=== PATIENT | male | born 1955 | race Caucasian/White ===

== ENCOUNTER 2017-06-21 13:01 | Inpatient (IN) | payer OTHER ==
--- NOTE | 2017-06-21 13:10 | PDOC ---
History of Present Illness - General History Source: Patient Exam Limitations: No Limitations - History of Present Illness Initial Comments: 06/21/17 15:41 The patient is a 61 year old male, with a significant past medical history of HTN and cocaine use who presents to the emergency department with R sided weakness today. Patient reports R arm numbness and R leg weakness after waking up this morning at 11 AM. Patients last known well was approximately 9 PM last evening. As per EMS, patients neighbor noted minor speech changes. Patient also admits to cocaine use four days ago and presents to the ED for further evaluation. Patient denies chest pain, palpitations, SOB, headache or dizziness. Patient denies fever, chills, abdominal pain, nausea, vomit, diarrhea or constipation. Patient denies dysuria, frequency, urgency or hematuria. Patient denies sick contacts or recent travel. Allergies: NKA Past surgical history: None Social history: Daily smoker. Alcohol and cocaine use. PCP: None <Sona Acuna - Last Filed: 06/21/17 16:04> <Daisy Carr - Last Filed: 06/22/17 12:10> - General Stated Complaint: CVA/TIA Time Seen by Provider: 06/21/17 13:10 Past History <Sona Acuna - Last Filed: 06/21/17 16:04> - Past Medical History Diabetes: No - Suicide/Smoking/Psychosocial Hx Smoking History: Current every day smoker Hx Alcohol Use: Yes Drug/Substance Use Hx: Yes Substance Use Type: Cocaine Hx Substance Use Treatment: Yes <Daisy Carr - Last Filed: 06/22/17 12:10> - Past Medical History Allergies/Adverse Reactions: Allergies Allergy/AdvReac Type Severity Reaction Status Date / Time No Known Allergies Allergy Verified 06/21/17 13:05 Home Medications: Ambulatory Orders Unobtainable [Unobtainable] 06/21/17 Neuro Specific PMHX - Complaint Specific PMHX Glaucoma: No Herniated Disk: No Laminectomy: No Migraine: No Multiple Sclerosis: No Neuropathy: No TIA: No <Daisy Carr - Last Filed: 06/22/17 12:10> Review of Systems - Review of Systems Able to Perform ROS?: Yes Comments:: 06/21/17 15:41 GENERAL/CONSTITUTIONAL: No: fever, chills, weakness, loss of appetite. HEAD, EYES, EARS, NOSE AND THROAT: No: change in vision, ear pain, discharge, sore throat, throat swelling. CARDIOVASCULAR: No: chest pain, lightheadedness, palpitations, syncope RESPIRATORY: No: cough, shortness of breath, wheezing, hemoptysis, stridor. GASTROINTESTINAL: No: nausea, vomiting, abdominal cramping, diarrhea, rectal bleeding, constipation. GENITOURINARY: No: dysuria, hematuria, frequency, urgency, flank pain. MUSCULOSKELETAL: No: back pain, neck pain, joint pain, muscle swelling or pain SKIN: No: lesions, pallor, rash or easy bruising. NEUROLOGIC: + R arm numbness. +R leg weakness. No: headache, vertigo, paresthesias. ENDOCRINE: No: unexplained weight gain or loss HEMATOLOGIC/LYMPHATIC: No: anemia, easy bleeding, swelling nodes <Sona Acuna - Last Filed: 06/21/17 16:04> *Physical Exam - Vital Signs Last Vital Signs Temp Pulse Resp BP Pulse Ox 98.1 F 78 18 144/63 100 06/21/17 13:04 06/21/17 13:10 06/21/17 13:04 06/21/17 13:04 06/21/17 13:10 - Physical Exam Comments: 06/21/17 15:41 GENERAL: The patient is in no acute distress. HEAD: Normal with no signs of trauma. EYES: PERRLA, EOMI, sclera anicteric, conjunctiva clear. ENT: Ears normal, nares patent, oropharynx clear without exudates. Moist mucous membranes. NECK: Normal range of motion, supple without lymphadenopathy, JVD, or masses. LUNGS: Breath sounds equal, clear to auscultation bilaterally. No wheezes, and no crackles. HEART:Regular rate and rhythm, normal S1 and S2 without murmur, rub or gallop. ABDOMEN: Soft, nontender, normoactive bowel sounds. No guarding, no rebound. EXTREMITIES: Normal range of motion, no edema. No clubbing or cyanosis. No erythema, or tenderness. NEUROLOGICAL: See NIHSS. MUSCULOSKELETAL: Back nontender to palpation, no CVA tenderness SKIN: Warm, Dry, normal turgor, no rashes or lesions noted. <Sona Acuna - Last Filed: 06/21/17 16:04> ED Treatment Course - LABORATORY CBC & Chemistry Diagram: 06/21/17 12:24 06/21/17 12:24 - ADDITIONAL ORDERS Additional order review: Laboratory Results 06/21/17 06/21/17 06/21/17 12:24 12:24 12:24 PT with INR 11.10 INR 0.98 Sodium 139 Potassium 4.1 Chloride 108 H Carbon Dioxide 20 L D Anion Gap 11 BUN 16 Creatinine 0.8 Creat Clearance w eGFR > 60 Random Glucose 101 Calcium 8.7 Total Bilirubin 0.5 AST 23 ALT 19 D Alkaline Phosphatase 75 Creatine Kinase 187 Creatine Kinase Index 1.2 CK-MB (CK-2) 2.288 Troponin I < 0.02 Total Protein 7.2 Albumin 4.1 Triglycerides 173 H Cholesterol 215 H Total LDL Cholesterol 141 H D HDL Cholesterol 47 Blood Type O POSITIVE Antibody Screen Negative 06/21/17 12:24 RBC 4.76 MCV 97.2 H MCHC 34.6 RDW 12.5 MPV 9.1 Neutrophils % 66.5 Lymphocytes % 23.0 Monocytes % 5.7 Eosinophils % 4.2 Basophils % 0.6 <Sona Acuna - Last Filed: 06/21/17 16:04> - LABORATORY CBC & Chemistry Diagram: 06/22/17 06:15 06/22/17 06:15 <Daisy Carr - Last Filed: 06/22/17 12:10> Medical Decision Making - Medical Decision Making 06/21/17 15:42 Neurology provider relations rep paged via phone answering service. Awaiting call back. 06/21/17 16:05 Discussed patient's case with Dr. Dukes. <Sona Acuna - Last Filed: 06/21/17 16:04> - Critical Care Time Total Critical Care Time (minutes): 35 Critical Care Statement: The care of this patient involved high complexity decision making to prevent further life threatening deterioration of the patient 's condition and/or to evaluate & treat vital organ system(s) failure or risk of failure. - Medical Decision Making 06/21/17 13:44 Mr Morales is a 62 yo LHD M presenting to the ER with a complaint of right arm uncoordination/weakness, sensory deficit Pt predominantly demonstrates sensory deficits and drift of the right arm Pt states he went to sleep at some point last night (?9 or 10) He awoke this morning at approximately 11am He noticed weakness Went back to sleep, thinking that it would go away He awoke some time later and noted that his symptoms persisted and he decided to come to the ER EKG: Sinus rhythm, rate of 70 bpm, left axis deviation, no ST elevations or depressions, T waves are upright (flattened in aVL On examination: NIHSS 6 Differential diagnoses includes but is not limited to: TIA, CVA, generalized weakness, electrolyte abnormality, intracranial hemorrhage , intracranial mass, Will do: 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 Dukes Pt needs MRI, MRA Will give Aspirin Will admit to Stroke Unit Case reviewed with Hospitalist Clinical Impression: CVA, initial presentatio not a TPA candidate as pt has questionable onset some time overnight <Daisy Carr - Last Filed: 06/22/17 12:10> *DC/Admit/Observation/Transfer - Attestations Scribe Attestion: 06/21/17 15:41 Documentation prepared by Sona Acuna, acting as medical physicist for Daisy Carr MD <Soan Acuna - Last Filed: 06/21/17 16:04> - Discharge Dispostion Admit: Yes <Daisy Carr - Last Filed: 06/22/17 12:10> Diagnosis at time of Disposition: Cerebrovascular accident (CVA) Qualifiers: CVA mechanism: unspecified Qualified Code(s): I63.9 - Cerebral infarction, unspecified - Discharge Dispostion Condition at time of disposition: Stable NIH Stroke Scale - Last Known Well Date/Time & Onset Date Last Known Well: 06/20/17 Time Last Known Well: 21:00 - Initial Evaluation Level of consciousness: Alert Ask patient the month and their age: Answers both correctly Ask patient to open & close eyes; make fist and let go: Obeys both correctly Best gaze (horizontal eye movement): Normal Visual field testing: No visual field loss Facial paresis (Show teeth/raise eyebrows/close eyes tight): Minor paralysis ( flattened nasolabial fold, asymmetry on smiling) Motor Function: Left Arm: Normal Motor Function: Right Arm: Drift Motor Function: Left Leg: Normal (extends leg 30 degrees for 5 seconds without drift) Motor Function: Right Leg: Normal (extends leg 30 degrees for 5 seconds without drift) Limb Ataxia: Present in one limb Sensory(Use pinprick test arms,legs,trunk,face/side to side): Severe to total sensory loss Best language (Describe picture, name items, read sentences): Mild to moderate aphasia Dysarthria (read several words): Normal articulation Extinction and Inattention: No abnormality - Total Score NIH Stroke Scale Score: 6 <Daisy Carr - Last Filed: 06/22/17 12:10> tPA Exclusion checklist 3-4.5h - Time Elapsed Date last known well: 06/20/17 Time last known well: 21:00 Elaspsed time: 1 Day(s) and 14 Hour(s) and 55 Minutes - Thrombolytic Therapy Candidate Is patient eligible for thrombolytic therapy: No - Exclusion Criteria 3-4.5 hr SBP greater than 185 or DBP greater than 110mmHg despite tx: No Recent IC/spinal surgery,head trauma or stroke<3mos.: No Hx IC hemorrhage, IC neoplasm, AV malformation or aneurysm: No Active internal bleeding: No Blding diathesis(low plt ct, inc PTT,INR>1.7 or use of NOAC): No Symptoms suggest subarachnoid hemorrhage: No CT demonstrates multilobar infarct(>1/3 cerebral hemiphere): No Arterial puncture at noncompressible site in previous 7 days: No Blood glucose concentration less than 50mg/dL (2.7mmol/L): No - Relative Exclusion Criteria 3-4.5 hr Life expectancy <1 yr or severe co-morbid illness: No : No Patient/family refused: No Rapid improvement: No Stroke severity too mild: No Recent acute MT (w/in previous 3 months): No Seizure at onset with postictal residual neuro impairments: No Major surgery or serious trauma w/in previous 14 days: No Recent GI or hemorrhage (w/in previous 21 days): No - Add'l Relative Exclusion 3-4.5 hr Age > 80: No Hx of both diabetes AND prior ischemic stroke: No Taking an oral anticoagulant regardless of INR: No NIHSS >25: No - Ineligibility reason(s) Reasons No tPA given: Outside of window - delayed arrival <Daisy Carr - Last Filed: 06/22/17 12:10>
[2017-06-21 13:13] VITALS: BMI 21.7
[2017-06-21] MEDS ORDERED: SODIUM CHLORIDE 1,000 ML IV SCH (13:15)
[2017-06-21 14:10] LABS: BASO % 0.6 % (0-2.0); EOS % 4.2 % (0-4.5); HEMATOCRIT 46.3 % (35.4-49); MCH 33.7 pg (25.7-33.7); MCHC 34.6 g/dl (32.0-35.9); MEAN CELL VOLUME 97.2 fl (80-96); MEAN PLT VOLUME 9.1 fl (7.5-11.1); MONO % 5.7 % (3.8-10.2); NEUT % 66.5 % (42.8-82.8); PLATELET COUNT 198 K/MM3 (134-434); RBC 4.76 M/mm3 (4.00-5.60); RDW 12.5 % (11.9-15.9); WHITE BLOOD COUNT 10.9 K/mm3 (4.0-10.0)
[2017-06-21 14:25] LABS: INR 0.98 (0.82-1.09); PROTHROMBIN TIME (PATIENT) 11.1 SEC (9.98-11.88)
[2017-06-21 14:34] LABS: ALBUMIN 4.1 g/dl (3.4-5.0); ALK PHOS 75 U/L (45-117); ANION GAP 11 (8-16); BILIRUBIN,TOTAL 0.5 mg/dL (0.2-1.0); BLOOD UREA NITROGEN 16 mg/dL (7-18); CALCIUM 8.7 mg/dL (8.5-10.1); CHLORIDE 108 mmol/L (98-107); CHOLESTEROL 215 mg/dL (50-200); CO2 20 mmol/L (21-32); CREATININE 0.8 mg/dL (0.7-1.3); GLUCOSE,RANDOM 101 mg/dL (74-106); HDL CHOLESTEROL 47 mg/dL (40-60); LDL CHOLESTEROL (ONLY SJRH) 141 mg/dL (5-100); POTASSIUM 4.1 mmol/L (3.5-5.1); SGOT/AST 23 U/L (15-37); SGPT/ALT 19 U/L (12-78); SODIUM 139 mmol/L (136-145); TOT PROT 7.2 g/dl (6.4-8.2); TRIGLYCERIDES 173 mg/dL (35-160)
[2017-06-21] MEDS ORDERED: ASPIRIN 325 MG TABLET PO ONE (16:15)
--- NOTE | 2017-06-21 16:44 | HP ---
CHIEF COMPLAINT: Right-sided weakness PCP: None HISTORY OF PRESENT ILLNESS: 62 year-old male with a PMH significant for HTN and cocaine use (last use x 4 days ago). Patient awoke this morning at 11:am and had right arm and right leg weakness. He was last known well last night, 06/20 at 9:00pm. Denies headache, fever, sweats, chills, sick contacts. Denies chest pain, palpitations, SOB, TOMAS , or lower extremity edema. ER course was notable for: (1) ASA 325mg x 1 (2) ECG sinus rhythm @70bpm (3) CT head: no acute process; old MCA infarct Recent Travel: No PAST MEDICAL HISTORY: Hypertension Cocaine abuse PAST SURGICAL HISTORY: None reported Social History: Smoking: current every day for 50 years Alcohol: yes (last drink 1 week ago) Drugs: cocaine (last use 4-5 days ago) ("I'm on probation I can't admit to anything.") Family History: Allergies No Known Allergies Allergy (Verified 06/21/17 13:05) HOME MEDICATIONS: Home Medications Medication Instructions Recorded Unobtainable [Unobtainable] 06/21/17 REVIEW OF SYSTEMS CONSTITUTIONAL: Absent: fever, chills, diaphoresis, generalized weakness, malaise, loss of appetite, weight change HEENT: Absent: rhinorrhea, nasal congestion, throat pain, throat swelling, difficulty swallowing, mouth swelling, ear pain, eye pain, visual changes CARDIOVASCULAR: Absent: chest pain, syncope, palpitations, irregular heart rate, lightheadedness , peripheral edema RESPIRATORY: Absent: cough, shortness of breath, dyspnea with exertion, orthopnea, wheezing, stridor, hemoptysis GASTROINTESTINAL: Absent: abdominal pain, abdominal distension, nausea, vomiting, diarrhea, constipation, melena, hematochezia GENITOURINARY: Absent: dysuria, frequency, urgency, hesitancy, hematuria, flank pain, genital pain MUSCULOSKELETAL: Absent: myalgia, arthralgia, joint swelling, back pain, neck pain SKIN: Absent: rash, itching, pallor HEMATOLOGIC/IMMUNOLOGIC: Absent: easy bleeding, easy bruising, lymphadenopathy, frequent infections ENDOCRINE: Absent: unexplained weight gain, unexplained weight loss, heat intolerance, cold intolerance NEUROLOGIC: +right sided upper and lower extremity weakness Absent: headache, paresthesias, dizziness, unsteady gait, seizure, mental status changes, bladder or bowel incontinence PSYCHIATRIC: Absent: anxiety, depression, suicidal or homicidal ideation, hallucinations. PHYSICAL EXAMINATION Vital Signs - 24 hr 06/21/17 06/21/17 13:04 13:10 Temperature 98.1 F Pulse Rate 80 78 Respiratory 18 Rate Blood Pressure 144/63 O2 Sat by Pulse 100 100 Oximetry (%) GENERAL: Awake, alert, and fully oriented, in no acute distress. HEAD: Normal with no signs of trauma. EYES: Pupils equal, round and reactive to light, extraocular movements intact, sclera anicteric, conjunctiva clear. No lid lag. EARS, NOSE, THROAT: Ears normal, nares patent, oropharynx clear without exudates. Moist mucous membranes. NECK: Normal range of motion, supple without lymphadenopathy, JVD, or masses. LUNGS: Breath sounds equal, clear to auscultation bilaterally. No wheezes, and no crackles. No accessory muscle use. HEART: Regular rate and rhythm, normal S1 and S2 without murmur, rub or gallop. ABDOMEN: Soft, nontender, not distended, normoactive bowel sounds, no guarding, no rebound, no masses. MUSCULOSKELETAL: Normal range of motion at all joints. No bony deformities or tenderness. No CVA tenderness. UPPER EXTREMITIES: 2+ pulses, warm, well-perfused. No cyanosis. No clubbing. No peripheral edema. LOWER EXTREMITIES: 2+ pulses, warm, well-perfused. No calf tenderness. No peripheral edema. NEUROLOGICAL: sensory deficits and drift RUE; normal articulation; RUE drift Laboratory Results - last 24 hr 06/21/17 06/21/17 06/21/17 12:24 12:24 12:24 WBC 10.9 H RBC 4.76 Hgb 16.0 Hct 46.3 MCV 97.2 H MCH 33.7 MCHC 34.6 RDW 12.5 Plt Count 198 MPV 9.1 Neutrophils % 66.5 Lymphocytes % 23.0 Monocytes % 5.7 Eosinophils % 4.2 Basophils % 0.6 PT with INR 11.10 INR 0.98 Sodium 139 Potassium 4.1 Chloride 108 H Carbon Dioxide 20 L D Anion Gap 11 BUN 16 Creatinine 0.8 Creat Clearance w eGFR > 60 Random Glucose 101 Calcium 8.7 Total Bilirubin 0.5 AST 23 ALT 19 D Alkaline Phosphatase 75 Creatine Kinase 187 Creatine Kinase Index 1.2 CK-MB (CK-2) 2.288 Troponin I < 0.02 Total Protein 7.2 Albumin 4.1 Triglycerides 173 H Cholesterol 215 H Total LDL Cholesterol 141 H D HDL Cholesterol 47 Blood Type Antibody Screen 06/21/17 12:24 WBC RBC Hgb Hct MCV MCH MCHC RDW Plt Count MPV Neutrophils % Lymphocytes % Monocytes % Eosinophils % Basophils % PT with INR INR Sodium Potassium Chloride Carbon Dioxide Anion Gap BUN Creatinine Creat Clearance w eGFR Random Glucose Calcium Total Bilirubin AST ALT Alkaline Phosphatase Creatine Kinase Creatine Kinase Index CK-MB (CK-2) Troponin I Total Protein Albumin Triglycerides Cholesterol Total LDL Cholesterol HDL Cholesterol Blood Type O POSITIVE Antibody Screen Negative ASSESSMENT/PLAN 62 year-old male with a PMH significant for HTN and active cocaine use. Presents with right-sided weakness. Right-sided weakness r/o TIA v. CVA --06/21 CT head: no acute process; left MCA territory infarct involving the insular cortex extending into the left temporoparietal region of indeterminant chronicity --MRI/MRA brain, MRA neck pending --continue ASA daily, start Lipitor --ECG sinus rhythm --echo ordered --US carotids ordered --troponin neg x 1; two pending Hypertension --BP stable --on no anti-hypertensives Cocaine use --last reported use 4 days ago --U tox positive for cocaine --avoid beta blockers Tobacco cessation --Nicoderm patch FEN Fluids: PO intake adequate Electrolytes: replete as indicated Nutrition: low sodium DVT prophylaxis: lovenox Physical therapy evaluation Dispo: continues to require inpatient care. Full code. Visit type - Emergency Visit Emergency Visit: Yes ED Registration Date: 06/21/17 Care time: The patient presented to the Emergency Department on the above date and was hospitalized for further evaluation of their emergent condition. - New Patient This patient is new to me today: Yes Date on this admission: 06/21/17 - Critical Care Critical Care patient: No Hospitalist Screening - Colonoscopy Questionnaire Colonoscopy Questionnaire: Colonoscopy Questionnaire - Patient: 50 - 75 years old and never had a screening colonoscopy: Yes History of colon or rectal polyps, or CA: Unknown History of IBD, Crohn's disease or UC: Unknown History of abdominal radiation therapy as a child: Unknown - Relative: 1 with colon or rectal CA, or polyps at age 60 or younger: Unknown Colon or rectal CA diagnosed at age 45 or younger: Unknown Multiple relatives with colon or rectal CA: Unknown - Outcome: Screening Result: Positive Screen
[2017-06-21] MEDS ORDERED: ATORVASTATIN CA 40 MG TABLET (FP) PO ONE (16:56)
[2017-06-21 17:44] LABS: URINE APPEARANCE CLEAR; URINE BILIRUBIN NEGATIVE (NEGATIVE); URINE BLOOD NEGATIVE (NEGATIVE); URINE COLOR YELLOW; URINE GLUCOSE (UA) NEGATIVE (NEGATIVE); URINE KETONE NEGATIVE (NEGATIVE); URINE LEUK ESTERASE NEGATIVE (NEGATIVE); URINE NITRITE NEGATIVE (NEGATIVE); URINE PROTEIN NEGATIVE (NEGATIVE); URINE UROBILINOGEN NEGATIVE mg/dL (0.2-1.0)
[2017-06-21] MEDS ORDERED: ASPIRIN 325 MG ENTERIC COATED TABLET (FP) ONE (17:47)
[2017-06-21] MEDS ORDERED: ATORVASTATIN CA 40 MG TABLET (FP) ONE (17:47)
[2017-06-21 17:57] LABS: METHADONE, UR NEGATIVE ng/ml (CUTOFF=300); OPIATES, URI NEGATIVE ng/ml (CUTOFF=300); PHENCYCLIDINE,URINE NEGATIVE ng/ml (CUTOFF=25); URINE AMPHETAMINES NEGATIVE ng/ml (CUTOFF=500); URINE BARBITURATES NEGATIVE ng/ml (CUTOFF=200); URINE BENZODIAZEPINES NEGATIVE ng/ml (CUTOFF=200)
[2017-06-21 17:58] LABS: COCAINE, UR POSITIVE ng/ml (CUTOFF=300)
[2017-06-21] MEDS ORDERED: ATORVASTATIN CA 40 MG TABLET (FP) PO SCH (22:00)
[2017-06-21] MEDS: NICOTINE 21 MG/24 HOURS TOPICAL PATCH TD SCH (22:31)
--- NOTE | 2017-06-22 00:23 | HOSP ---
Subjective - Review of Symptoms Events since last encounter: Received TC from radiologist, Dr. Pimentel who reports pt with severe stenosis L carotid artery with multiple L occipital, frontal, thalamic infacts. MRA brain revealed poor perfusion of L hemisphere. Subjective: pt reports that he is still having difficulty moving R side of body; it won't obey his commands. Physical Examination Vital Signs: Vital Signs Temperature 98.0 F 06/21/17 17:10 Pulse Rate 73 06/21/17 17:10 Respiratory Rate 16 06/21/17 17:10 Blood Pressure 125/84 06/21/17 17:10 O2 Sat by Pulse Oximetry (%) 97 06/21/17 23:03 Constitutional: Yes: No Distress, Calm Cardiovascular: Yes: Regular Rate and Rhythm, S1, S2 Respiratory: Yes: CTA Bilaterally Gastrointestinal: Yes: Normal Bowel Sounds. No: Tenderness Neurological: Yes: Alert, Oriented (x4), Facial Droop (mild right), Other ( speech clear) ...Motor Strength: LUE (5/5), LLE (5/5), RUE (3/5), RLE (3/5) Labs: CBC, BMP 06/21/17 12:24 06/21/17 12:24 Hospitalist Encounter Assessment: acute infarct L hemisphere with severe stenosis L carotid artery and very poor perfusion of left hemisphere - DW neurology Dr. Dukes, recommends ASA and vascular surgery consult. Dr. Geller paged x 2 - Dr. Dukes also recommends CTA neck and brain however, pt just had MRA and is refusing to go for further testing at this time. Will order in AM - cont on Pict q4h Addendum: 150am Received TC back from Dr. Geller. Made aware of MRI findings including severe stenosis carotid artery and Left hemisphere hypoperfusion. Also recommends CTA neck. No other new orders.
[2017-06-22 06:48] LABS: BASO % 0.7 % (0-2.0); EOS % 3.7 % (0-4.5); HEMATOCRIT 43.6 % (35.4-49); HEMOGLOBIN 14.9 GM/dL (11.7-16.9); LYMPH % 23.4 % (8-40); MCH 33.5 pg (25.7-33.7); MCHC 34.3 g/dl (32.0-35.9); MEAN CELL VOLUME 97.8 fl (80-96); MEAN PLT VOLUME 9.2 fl (7.5-11.1); NEUT % 66.2 % (42.8-82.8); PLATELET COUNT 204 K/MM3 (134-434); RBC 4.46 M/mm3 (4.00-5.60); RDW 12.6 % (11.9-15.9); WHITE BLOOD COUNT 10.1 K/mm3 (4.0-10.0)
[2017-06-22 07:13] LABS: CHLORIDE 106 mmol/L (98-107); SODIUM 141 mmol/L (136-145)
[2017-06-22 07:32] LABS: ALBUMIN 3.7 g/dl (3.4-5.0); ALK PHOS 68 U/L (45-117); ANION GAP 14 (8-16); BILIRUBIN,TOTAL 0.8 mg/dL (0.2-1.0); BLOOD UREA NITROGEN 15 mg/dL (7-18); CALCIUM 9.1 mg/dL (8.5-10.1); CO2 21 mmol/L (21-32); CREATININE 0.8 mg/dL (0.7-1.3); GLUCOSE,RANDOM 91 mg/dL (74-106); SGOT/AST 23 U/L (15-37); SGPT/ALT 18 U/L (12-78); TOT PROT 6.7 g/dl (6.4-8.2)
[2017-06-22 07:38] LABS: MAGNESIUM 2.2 mg/dL (1.8-2.4)
--- NOTE | 2017-06-22 09:05 | CON.NEURO ---
Consult - History of Present Illness History of Present Illness: 62 year-old male with a PMH significant for HTN and cocaine use (last use x 4 days ago). Patient awoke 06/21/16 at 11:am and had right arm and right leg weakness. He was last known well last night, 06/20 at 9:00pm. Denies headache, fever, sweats, chills, sick contacts. Denies chest pain, palpitations, SOB, TOMAS , or lower extremity edema. CT head: no acute process; old MCA infarct. NIH 6 MRI IMPRESSION: Acute nonhemorrhagic cerebral infarcts are identified within the distribution of the left middle and posterior cerebral arteries as discussed above.. There is a possible small late subacute left basal ganglia infarct. Prominently diminished flow is noted within the intracranial left internal carotid artery presumably secondary to marked extracranial carotid artery stenosis. Please refer to the neck MRA in this regard. MRA Impression: A severe stenosis is seen of the left internal carotid artery origin with resultant distal adaptive luminal narrowing. An approximately 50% proximal right internal carotid artery stenosis is noted. Accurate quantification is somewhat difficult on this exam due to motion artifact. Correlate with Doppler sonography or CT angiography. The remainder of the study is as discussed above. Doppler : IMPRESSION: Moderate atherosclerotic disease, left greater than right, with stenoses in the 60-79% range bilaterally. Clinical correlation and follow-up studies recommended. Please see above discussion - History Source History Provided By: Patient, Medical Record - Alcohol/Substance Use Hx Alcohol Use: Yes - Smoking History Smoking history: Current every day smoker Aproximately how many cigarettes per day: 20 Home Medications - Allergies Allergies/Adverse Reactions: Allergies Allergy/AdvReac Type Severity Reaction Status Date / Time No Known Allergies Allergy Verified 06/21/17 13:05 - Home Medications Home Medications: Ambulatory Orders Unobtainable [Unobtainable] 06/21/17 Physical Exam-Neuro Vital Signs: Vital Signs Temperature 98.0 F 06/22/17 05:41 Pulse Rate 77 06/22/17 05:41 Respiratory Rate 18 06/22/17 05:41 Blood Pressure 103/62 06/22/17 05:41 O2 Sat by Pulse Oximetry (%) 97 06/22/17 00:31 Constitutional: Yes: Poor Hygeine Labs: CBC, BMP 06/22/17 06:15 06/22/17 06:15 INR, PTT INR 0.98 (0.82-1.09) 06/21/17 12:24 - Neuro Exam Level Of Consciousness: Yes: Alert (Awake, Alert, dense r field cut, R hemiparesis 4/5 with drift, ) NIH Stroke Scale - Last Known Well Date/Time & Onset Date Last Known Well: 06/21/17 Time Last Known Well: 11:00 - Initial Evaluation Level of consciousness: Alert Ask patient the month and their age: Answers both correctly Ask patient to open & close eyes; make fist and let go: Obeys both correctly Best gaze (horizontal eye movement): Normal Visual field testing: Complete hemianopia Facial paresis (Show teeth/raise eyebrows/close eyes tight): Minor paralysis ( flattened nasolabial fold, asymmetry on smiling) Motor Function: Left Arm: Normal Motor Function: Right Arm: Drift Motor Function: Left Leg: Normal (extends leg 30 degrees for 5 seconds without drift) Motor Function: Right Leg: Drift Limb Ataxia: Present in one limb Sensory(Use pinprick test arms,legs,trunk,face/side to side): Normal Best language (Describe picture, name items, read sentences): No Aphasia Dysarthria (read several words): Normal articulation Extinction and Inattention: No abnormality - Total Score NIH Stroke Scale Score: 6 Imaging - Results Cat Scan: Report Reviewed, Image Reviewed Ultrasound: Report Reviewed Problem List - Problems (1) Carotid stenosis, symptomatic, with infarction Code(s): I63.239 - CEREB INFRC DUE TO UNSP OCCLS OR STENOS OF UNSP CAROTID ART (2) Cerebrovascular accident (CVA) Code(s): I63.9 - CEREBRAL INFARCTION, UNSPECIFIED Qualifiers: CVA mechanism: unspecified Qualified Code(s): I63.9 - Cerebral infarction, unspecified Assessment/Plan 62 year-old male with a PMH significant for HTN and cocaine use (last use x 4 days ago). Patient awoke 06/21/16 at 11:am and had right arm and right leg weakness. He was last known well last night, 06/20 at 9:00pm. NIH, R field cut, slight right hemiparesis. no TPA was out of window + L MCA territory stroke, highly suspicious for artery to artery embolism, symptomatic L carotid stenosis. does not take ASA although compliance an issue , +cocaine, +smoking would rec Left sided CEA , thereafter ASA, statin spoke to vascular , follow clinic and will plan for elective CEA 4-6 weeks card [facility] Dr Dukes
[2017-06-22] MEDS: NICOTINE 21 MG/24 HOURS TOPICAL PATCH TD SCH (09:56)
[2017-06-22] MEDS: ASPIRIN 81 MG CHEWABLE TABLETS PO SCH (09:56)
[2017-06-22] MEDS: ENOXAPARIN NA (PORCINE) 40 MG/0.4 ML DISP.SYRIN SQ SCH (09:56)
--- NOTE | 2017-06-22 12:34 | EKG ---
Test Reason : Blood Pressure : / mmHG Vent. Rate : 071 BPM Atrial Rate : 071 BPM P-R Int : 138 ms QRS Dur : 082 ms QT Int : 396 ms P-R-T Axes : 076 -39 065 degrees QTc Int : 430 ms NORMAL SINUS RHYTHM POSSIBLE LEFT ATRIAL ENLARGEMENT LEFT AXIS DEVIATION ABNORMAL ECG WHEN COMPARED WITH ECG OF 21-JUN-2017 13:16, NO SIGNIFICANT CHANGE WAS FOUND Confirmed by RITESH QUINONEZ, ROMEO ([id number]) on 06/22/2017 12:34:13 PM Referred By: Confirmed By:ROMEO AWAD MD
--- NOTE | 2017-06-22 14:20 | CONSULT ---
Consult - Alcohol/Substance Use Hx Alcohol Use: Yes - Smoking History Smoking history: Current every day smoker Aproximately how many cigarettes per day: 20 Home Medications - Allergies Allergies/Adverse Reactions: Allergies Allergy/AdvReac Type Severity Reaction Status Date / Time No Known Allergies Allergy Verified 06/21/17 13:05 - Home Medications Home Medications: Ambulatory Orders Unobtainable [Unobtainable] 06/21/17 Physical Exam Vital Signs: Vital Signs Temperature 97.6 F 06/22/17 13:00 Pulse Rate 78 06/22/17 13:00 Respiratory Rate 20 06/22/17 13:00 Blood Pressure 120/62 06/22/17 13:00 O2 Sat by Pulse Oximetry (%) 99 06/22/17 09:00 Labs: CBC, BMP 06/22/17 06:15 06/22/17 06:15 Assessment/Plan VAscular Surgery 62 year-old male with a PMH significant for HTN and cocaine use (last use x 4 days ago). Patient awoke this morning at 11:am and had right arm and right leg weakness. He was last known well last night, 06/20 at 9:00pm. Denies headache, fever, sweats, chills, sick contacts. Denies chest pain, palpitations, SOB, TOMAS , or lower extremity edema. ER course was notable for: (1) ASA 325mg x 1 (2) ECG sinus rhythm @70bpm (3) CT head: no acute process; old MCA infarct Recent Travel: No PAST MEDICAL HISTORY: Hypertension Cocaine abuse PAST SURGICAL HISTORY: None reported Social History: Smoking: current every day for 50 years Alcohol: yes (last drink 1 week ago) Drugs: cocaine (last use 4-5 days ago) ("I'm on probation I can't admit to anything.") Family History: Allergies No Known Allergies Allergy (Verified 06/21/17 13:05) MRA -- shows acute infarct in the middle and posterior cerebral artery distribution. PE Head - NC/AT Lung - CTA heart - RRR abd - soft,nt,nd ext - warm, pink. FROM x4 . Good muscle strength. A/P CTA shows left ICA stenosis at the origin. CTA not officially read as of yet. Will need CEA at some point. Awaiting neurology input. Will follow. Joe Geller DO
--- NOTE | 2017-06-22 16:42 | EKG ---
Test Reason : Blood Pressure : / mmHG Vent. Rate : 078 BPM Atrial Rate : 078 BPM P-R Int : 132 ms QRS Dur : 078 ms QT Int : 382 ms P-R-T Axes : 069 -32 054 degrees QTc Int : 435 ms POOR DATA QUALITY, INTERPRETATION MAY BE ADVERSELY AFFECTED NORMAL SINUS RHYTHM POSSIBLE LEFT ATRIAL ENLARGEMENT LEFT AXIS DEVIATION ABNORMAL ECG WHEN COMPARED WITH ECG OF 06-DEC-2016 07:41, NO SIGNIFICANT CHANGE WAS FOUND Confirmed by ROMEO AWAD MD ([id number]) on 06/22/2017 4:42:20 PM Referred By: Confirmed By:ROMEO AWAD MD
--- NOTE | 2017-06-22 19:36 | PN ---
Physical Exam: SUBJECTIVE: Patient seen and examined at the bedside. Reports right eye with diminished peripheral vision. OBJECTIVE: Cardiology consulted Vital Signs Period Temp Pulse Resp BP Sys/White Pulse Ox Last 24 Hr 97.6 F-98.3 F 76-80 18-20 103-135/57-82 97-99 GENERAL: The patient is awake, alert, and fully oriented, in no acute distress. HEAD: Normal with no signs of trauma. EYES: Right eye with visual defect ENT: Ears normal, nares patent, oropharynx clear without exudates, moist mucous membranes. NECK: Trachea midline, full range of motion, supple. LUNGS: Breath sounds equal, clear to auscultation bilaterally HEART:NSR ABDOMEN: Soft, nontender, nondistended, normoactive bowel sounds, no guarding, no rebound, no hepatosplenomegaly, no masses. EXTREMITIES: 2+ pulses, warm, well-perfused, no edema. NEUROLOGICAL:. Normal speech, gait not observed. PSYCH: Normal mood, normal affect. SKIN: Warm, dry, normal turgor, no rashes or lesions noted Laboratory Results - last 24 hr 06/21/17 06/22/17 06/22/17 21:00 01:55 06:15 WBC 10.1 H RBC 4.46 Hgb 14.9 Hct 43.6 MCV 97.8 H MCH 33.5 MCHC 34.3 RDW 12.6 Plt Count 204 MPV 9.2 Neutrophils % 66.2 Lymphocytes % 23.4 Monocytes % 6.0 Eosinophils % 3.7 Basophils % 0.7 Sodium Potassium Chloride Carbon Dioxide Anion Gap BUN Creatinine Creat Clearance w eGFR Random Glucose Calcium Phosphorus Magnesium Total Bilirubin AST ALT Alkaline Phosphatase Creatine Kinase 173 152 Creatine Kinase Index 1.3 1.6 CK-MB (CK-2) 2.333 2.485 Troponin I < 0.02 < 0.02 Total Protein Albumin 06/22/17 06/22/17 06:15 06:15 WBC RBC Hgb Hct MCV MCH MCHC RDW Plt Count MPV Neutrophils % Lymphocytes % Monocytes % Eosinophils % Basophils % Sodium 141 Potassium 4.0 Chloride 106 Carbon Dioxide 21 Anion Gap 14 BUN 15 Creatinine 0.8 Creat Clearance w eGFR > 60 Random Glucose 91 Calcium 9.1 Phosphorus 3.0 Cancelled Magnesium 2.2 Cancelled Total Bilirubin 0.8 D AST 23 ALT 18 Alkaline Phosphatase 68 Creatine Kinase Creatine Kinase Index CK-MB (CK-2) Troponin I Total Protein 6.7 Albumin 3.7 Active Medications Generic Name Dose Route Start Last Admin Trade Name Kvng PRN Reason Stop Dose Admin Aspirin 81 mg 06/22/17 10:00 06/22/17 09:56 Asa - PO 81 mg DAILY MICHAEL Administration Atorvastatin Calcium 40 mg 06/22/17 22:00 Lipitor - PO HS MICHAEL Enoxaparin Sodium 40 mg 06/22/17 10:00 06/22/17 09:56 Lovenox - SQ 40 mg DAILY MICHAEL Administration Nicotine 21 mg 06/21/17 19:00 06/22/17 09:56 Nicoderm Patch - TD 21 mg DAILY MICHAEL Administration ASSESSMENT/PLAN: Patient is a 62 year old male with a past medical history of hypertension and chronic cocaine use. He presents to the ED with right sided weakness. Imaging: -Moderate atherosclerotic dx, left greater than right, with stenosis in the 60- 70% range -Acute non hemorrhagic cerebral infarcts are identified within the distribution of the left mid and posterior cerebral arteris. Possible small lae subacute left basal gangila infarct Neck CTA: apx 70-75% stenosis inthe origin of the left internal carotid artery secondary to non calcified and calcified plaque. Apx 50% of stenosis at the origin of the right internal carotid artery seconday to calcified and non calc. plaque Neuro: Left MCA Territory acute stroke Imaging as noted above ASA 81mg Stain therapy Swallow evaluation Physical therapy Cardiology evaluation Rehab daily Vascular and Neuro following Hypertension, stable monitor on tele Cardiology consult Psyche: Cocaine use, chronic No w/drawal symptoms on exam Tobacco cessation, chronic On Nicotine FEN PO intake Monitor electrolytes Low sodium diet On Lovenox daily PT following Disposition: full code
[2017-06-22] MEDS: ATORVASTATIN CA 40 MG TABLET (FP) PO SCH (21:42)
[2017-06-23] MEDS ORDERED: MELATONIN 5 MG TABLETS PO ONE (00:32)
[2017-06-23] MEDS ORDERED: MELATONIN 5 MG TABLETS PO PRN (00:32)
[2017-06-23 07:33] LABS: BASO % 0.7 % (0-2.0); EOS % 4.4 % (0-4.5); HEMATOCRIT 42.4 % (35.4-49); HEMOGLOBIN 14.8 GM/dL (11.7-16.9); LYMPH % 28.1 % (8-40); MCH 33.8 pg (25.7-33.7); MCHC 34.8 g/dl (32.0-35.9); MEAN CELL VOLUME 97.2 fl (80-96); MEAN PLT VOLUME 9.2 fl (7.5-11.1); NEUT % 60.8 % (42.8-82.8); PLATELET COUNT 204 K/MM3 (134-434); RBC 4.36 M/mm3 (4.00-5.60); RDW 12.7 % (11.9-15.9); WHITE BLOOD COUNT 9.8 K/mm3 (4.0-10.0)
[2017-06-23 08:22] LABS: ALBUMIN 3.8 g/dl (3.4-5.0); ALK PHOS 67 U/L (45-117); ANION GAP 8 (8-16); BILIRUBIN,TOTAL 0.6 mg/dL (0.2-1.0); BLOOD UREA NITROGEN 19 mg/dL (7-18); CALCIUM 8.9 mg/dL (8.5-10.1); CHLORIDE 107 mmol/L (98-107); CO2 25 mmol/L (21-32); GLUCOSE,RANDOM 85 mg/dL (74-106); POTASSIUM 3.8 mmol/L (3.5-5.1); SGOT/AST 19 U/L (15-37); SGPT/ALT 15 U/L (12-78); SODIUM 140 mmol/L (136-145); TOT PROT 6.5 g/dl (6.4-8.2)
[2017-06-23] MEDS: ASPIRIN 81 MG CHEWABLE TABLETS PO SCH (09:17)
[2017-06-23] MEDS: ENOXAPARIN NA (PORCINE) 40 MG/0.4 ML DISP.SYRIN SQ SCH (09:17)
[2017-06-23] MEDS: NICOTINE 21 MG/24 HOURS TOPICAL PATCH TD SCH (09:17)
--- NOTE | 2017-06-23 09:30 | PN ---
Physical Exam: SUBJECTIVE: Patient seen and examined OBJECTIVE: Vital Signs Period Temp Pulse Resp BP Sys/White Pulse Ox Last 24 Hr 97.6 F-98.8 F 74-83 18-20 105-121/57-76 99 GENERAL: The patient is awake, alert, and fully oriented, in no acute distress. HEAD: Normal with no signs of trauma. EYES: Right eye with visual defect ENT: Ears normal, nares patent, oropharynx clear without exudates, moist mucous membranes. NECK: Trachea midline, full range of motion, supple. LUNGS: Breath sounds equal, clear to auscultation bilaterally HEART:NSR ABDOMEN: Soft, nontender, nondistended, normoactive bowel sounds, no guarding, no rebound, no hepatosplenomegaly, no masses. EXTREMITIES: 2+ pulses, warm, well-perfused, no edema. NEUROLOGICAL:. Normal speech, gait not observed. PSYCH: Normal mood, normal affect. SKIN: Warm, dry, normal turgor, no rashes or lesions noted Laboratory Results - last 24 hr 06/23/17 06/23/17 07:05 07:05 WBC 9.8 RBC 4.36 Hgb 14.8 Hct 42.4 MCV 97.2 H MCH 33.8 H MCHC 34.8 RDW 12.7 Plt Count 204 MPV 9.2 Neutrophils % 60.8 Lymphocytes % 28.1 D Monocytes % 6.0 Eosinophils % 4.4 Basophils % 0.7 Sodium 140 Potassium 3.8 Chloride 107 Carbon Dioxide 25 Anion Gap 8 BUN 19 H D Creatinine 1.0 D Creat Clearance w eGFR > 60 Random Glucose 85 Calcium 8.9 Total Bilirubin 0.6 D AST 19 ALT 15 Alkaline Phosphatase 67 Total Protein 6.5 Albumin 3.8 Active Medications Generic Name Dose Route Start Last Admin Trade Name Freq PRN Reason Stop Dose Admin Aspirin 81 mg 06/22/17 10:00 06/23/17 09:17 Asa - PO 81 mg DAILY MICHAEL Administration Atorvastatin Calcium 40 mg 06/22/17 22:00 06/22/17 21:42 Lipitor - PO 40 mg HS MICHAEL Administration Enoxaparin Sodium 40 mg 06/22/17 10:00 06/23/17 09:17 Lovenox - SQ 40 mg DAILY MICHAEL Administration Melatonin 5 mg 06/23/17 00:32 Melatonin PO HS PRN INSOMNIA Nicotine 21 mg 06/21/17 19:00 06/23/17 09:17 Nicoderm Patch - TD 21 mg DAILY MICHAEL Administration ASSESSMENT/PLAN: Patient is a 62 year old male with a past medical history of hypertension and chronic cocaine use. He presents to the ED with right sided weakness. Imaging: -Moderate atherosclerotic dx, left greater than right, with stenosis in the 60- 70% range -Acute non hemorrhagic cerebral infarcts are identified within the distribution of the left mid and posterior cerebral arteris. Possible small lae subacute left basal gangila infarct Neck CTA: apx 70-75% stenosis in the origin of the left internal carotid artery secondary to non calcified and calcified plaque. Apx 50% of stenosis at the origin of the right internal carotid artery secondary to calcified and non calc. plaque Neuro Left MCA territory acute stroke Left MCA Territory acute stroke Imaging as noted above ASA 81mg Stain therapy Swallow evaluation Physical therapy Cardiology evaluation Rehab daily Vascular and Neuro following Hypertension, stable monitor on tele Cardiology consult Psyche: Cocaine use, chronic No w/drawal symptoms on exam Tobacco cessation, chronic On Nicotine FEN PO intake Monitor electrolytes Low sodium diet On Lovenox daily PT following Disposition: full code
--- NOTE | 2017-06-23 10:52 | CONSULT ---
Admitting History and Physical - Primary Care Physician PCP: Sirisha Cuellar - Admission History of Present Illness: 62 year-old male with a PMH significant for HTN and cocaine use, last use x 4 days ago, admitted with right arm and right leg weakness. Severe stenosis L carotid artery with multiple L occipital, frontal, thalamic infacts. MRA brain revealed poor perfusion of L hemisphere. Right hemiparesis Selected Entries 06/22/17 06/22/17 06/22/17 00:30 02:07 05:41 Breakfast Lunch Supper Temperature 98.1 F 98.3 F 98.0 F 06/22/17 06/22/17 06/22/17 09:00 11:17 13:00 Breakfast 100% Lunch Supper Temperature 97.8 F 97.6 F 06/22/17 06/22/17 06/22/17 14:59 17:00 19:44 Breakfast Lunch 75% Supper 100% Temperature 97.7 F 98.8 F 06/22/17 06/23/17 06/23/17 20:50 05:00 08:08 Breakfast Lunch Supper Temperature 97.6 F 97.8 F 98 F On reg diet, thin liquid. History Source: Patient, Medical Record Limitations to Obtaining History: Clinical Condition - Smoking History Smoking history: Current every day smoker Aproximately how many cigarettes per day: 20 - Alcohol/Substance Use Hx Alcohol Use: Yes History - Admission Reason For Visit: CVA - Diagnostics CT Scan: Report Reviewed MRI: Report Reviewed (severe stenosis L carotid artery with multiple L occipital , frontal, thalamic infacts. MRA brain revealed poor perfusion of L hemisphere.) - General Mental Status: Alert and Oriented, Awake and Alert, Able to Follow Commands Attention: Intact Ability to Follow Directions: Good (Occasional errors with complex, lengthy commands) - Hearing Hearing: Functional Speech Evaluation - Communication Primary Language: DIVEHI Communication: Yes: Within Normal Limits Oral Expression Ability: Yes: Mild Impairment (occassional word finding difficulty/errors) - Speech Production Able to Make Needs Known: Yes: WNL Intelligibility: Yes: WNL - Speech Characteristics Voice Loudness: Normal Voice Pitch: Yes: Normal Voice Phonatory-based Quality: Yes: Normal Speech Pattern: Normal Speech Clarity: < 100% Nasal Resonance: Normal Articulation: Yes: Precise Rate of Speech: Intact - Language/Auditory Comprehension Follows: Yes: 2 Stage Simple Commands Observation: Able to respond to yes/no queries: Yes, Yes/No Confusion: No, Comprehends Conversational Speech: Yes, Benefits from Repetiton: Yes - Language/Verbal Expression Aphasia: Yes: Anomia (occasional) Able to Respond to Simple Queries: Yes: Mildly Impaired Able to Communicate Wants and Needs: Yes: WNL Aware of Errors: Yes Attempts to Correct Errors: Yes - Memory/Perception Hemaniopsia: Yes: Right - Swallow Evaluation/Bedside Assessment Current Nutritional Intake: Regular, Thin Liquids Oral Secretions: Yes: WFL Dentition: Yes: Missing Teeth (has 3 teeth) Facial Symmetry at Rest: Symmetrical Facial Symmetry on Retraction: Symmetrical Against Resistance Opening: Normal Against Resistance Closing: Normal Pucker Lips: Normal Smile: Normal Lingual Movement: Normal, Symmetric Lingual Speed of Movement: Normal Lingual Movement Strgth Against Opposition: Normal Lingual Movement Characteristics: Normal Velopharyngeal Movement: Normal Laryngeal Elevation: WFL Laryngeal Movement: Able to Palpate Rate of Intake: WFL Bolus Size: WFL Labial Seal: WFL Chewing: WFL (adequate with poor dentition.) Oral Prep Time: WFL A-P Transit: WFL Timing of Swallow: WFL Coughing/Throat Clear: No Change in Voice: No Recommendations - Speech Evaluation, Impression/Plan Impression: Right hemiparesis/hemianopsia. O x 3. Verbal with mild anomia/ occasional errors. Swallowing intact - Disposition Discharge to: [facility] Center - Dysphagia Impressions/Plan Swallowing Skills: WFL Dysphagia Impressions: No Impairment *Silent aspiration: cannot be R/O at bedside - Recommendations Diet Consistency: Regular (soft may be easier) Medication Administration: Whole with water Liquids: Thin Liquids
--- NOTE | 2017-06-23 11:23 | CON.CARD ---
Cardiology Consult (text) - Consultation Consultation Note: cc: right side weakness hpi: 62 m hx htn, active cocaine use here with right sided weakness. Found to have new cva and carotid stenosis. No cp, sob, palps, dizzy, loc, pnd, orthopnea, le edema. No hx hrt dx. Still with right side weakness. pmh: per hpi psh: no surgery social: +tob, +cocaine fam: no premature cad, scd ros: per hpi; no nvd, fever, cough, nasal congestion, gib, hematuria, dysuria meds: Home Medications Medication Instructions Recorded Unobtainable [Unobtainable] 06/21/17 pe: Vital Signs Period Temp Pulse Resp BP Sys/White Pulse Ox Last 24 Hr 97.6 F-98.8 F 74-83 18-20 105-121/57-76 99-100 nad no jvd rrr s1s2 no mrg cta bl nl eff aaox3 no le e/c/c abd nt nd pos bs no jaundice diaphoresis pos dp pt Laboratory Last Values WBC 9.8 K/mm3 (4.0-10.0) 06/23/17 07:05 RBC 4.36 M/mm3 (4.00-5.60) 06/23/17 07:05 Hgb 14.8 GM/dL (11.7-16.9) 06/23/17 07:05 Hct 42.4 % (35.4-49) 06/23/17 07:05 MCV 97.2 fl (80-96) H 06/23/17 07:05 MCH 33.8 pg (25.7-33.7) H 06/23/17 07:05 MCHC 34.8 g/dl (32.0-35.9) 06/23/17 07:05 RDW 12.7 % (11.9-15.9) 06/23/17 07:05 Plt Count 204 K/MM3 (134-434) 06/23/17 07:05 MPV 9.2 fl (7.5-11.1) 06/23/17 07:05 Neutrophils % 60.8 % (42.8-82.8) 06/23/17 07:05 Lymphocytes % 28.1 % (8-40) D 06/23/17 07:05 Monocytes % 6.0 % (3.8-10.2) 06/23/17 07:05 Eosinophils % 4.4 % (0-4.5) 06/23/17 07:05 Basophils % 0.7 % (0-2.0) 06/23/17 07:05 PT with INR 11.10 SEC (9.98-11.88) 06/21/17 12:24 INR 0.98 (0.82-1.09) 06/21/17 12:24 Sodium 140 mmol/L (136-145) 06/23/17 07:05 Potassium 3.8 mmol/L (3.5-5.1) 06/23/17 07:05 Chloride 107 mmol/L (98-107) 06/23/17 07:05 Carbon Dioxide 25 mmol/L (21-32) 06/23/17 07:05 Anion Gap 8 (8-16) 06/23/17 07:05 BUN 19 mg/dL (7-18) H D 06/23/17 07:05 Creatinine 1.0 mg/dL (0.7-1.3) D 06/23/17 07:05 Creat Clearance w eGFR > 60 (>60) 06/23/17 07:05 Random Glucose 85 mg/dL (74-106) 06/23/17 07:05 Calcium 8.9 mg/dL (8.5-10.1) 06/23/17 07:05 Phosphorus 3.0 mg/dL (2.5-4.9) 06/22/17 06:15 Magnesium 2.2 mg/dL (1.8-2.4) 06/22/17 06:15 Total Bilirubin 0.6 mg/dL (0.2-1.0) D 06/23/17 07:05 AST 19 U/L (15-37) 06/23/17 07:05 ALT 15 U/L (12-78) 06/23/17 07:05 Alkaline Phosphatase 67 U/L (45-117) 06/23/17 07:05 Creatine Kinase 152 IU/L (39-308) 06/22/17 01:55 Creatine Kinase Index 1.6 % (0.0-5.0) 06/22/17 01:55 CK-MB (CK-2) 2.485 ng/mL (0.5-3.6) 06/22/17 01:55 Troponin I < 0.02 ng/ml (0.00-0.05) 06/22/17 01:55 Total Protein 6.5 g/dl (6.4-8.2) 06/23/17 07:05 Albumin 3.8 g/dl (3.4-5.0) 06/23/17 07:05 Triglycerides 173 mg/dL (35-160) H 06/21/17 12:24 Cholesterol 215 mg/dL (50-200) H 06/21/17 12:24 Total LDL Cholesterol 141 mg/dL (5-100) H D 06/21/17 12:24 HDL Cholesterol 47 mg/dL (40-60) 06/21/17 12:24 Urine Color Yellow 06/21/17 17:39 Urine Appearance Clear 06/21/17 17:39 Urine pH 7.0 (5.0-8.0) D 06/21/17 17:39 Ur Specific [place] 1.018 (1.001-1.035) 06/21/17 17:39 Urine Protein Negative (NEGATIVE) 06/21/17 17:39 Urine Glucose (UA) Negative (NEGATIVE) 06/21/17 17:39 Urine Ketones Negative (NEGATIVE) 06/21/17 17:39 Urine Blood Negative (NEGATIVE) 06/21/17 17:39 Urine Nitrite Negative (NEGATIVE) 06/21/17 17:39 Urine Bilirubin Negative (NEGATIVE) 06/21/17 17:39 Urine Urobilinogen Negative mg/dL (0.2-1.0) 06/21/17 17:39 Ur Leukocyte Esterase Negative (NEGATIVE) 06/21/17 17:39 Opiates Screen Negative ng/ml (PWYHPW=547) 06/21/17 17:39 Methadone Screen Negative ng/ml (IXSBRB=446) 06/21/17 17:39 Barbiturate Screen Negative ng/ml (APQCKA=630) 06/21/17 17:39 Phencyclidine Screen Negative ng/ml (CUTOFF=25) 06/21/17 17:39 Ur Amphetamines Screen Negative ng/ml (TRKWXS=697) 06/21/17 17:39 MDMA (Ecstasy) Screen Negative ng/ml (RFAWLW=752) 06/21/17 17:39 Benzodiazepines Screen Negative ng/ml (MJBIWM=009) 06/21/17 17:39 Cocaine Screen Positive ng/ml (EFTPUN=306) 06/21/17 17:39 U Marijuana (THC) Screen Negative ng/ml (CUTOFF=50) 06/21/17 17:39 Blood Type O POSITIVE 06/21/17 12:24 Antibody Screen Negative 06/21/17 12:24 tele: sr, occ pvcs ecg: sr, nl intervals, no ischemic changes echo 06/2017: nl lv/rv, no sig valve path, mild ao root dil cxr: no chf a/p: 62 m hx htn, active cocaine use here with right sided weakness. acute cva: -tele, echo benign -no signs acs -plans per neuro carotid stenosis: -cont asa, statin -vascular following htn: -stable off meds hld: -cont statin tob, cocaine use: -cessation discussed
--- NOTE | 2017-06-23 17:50 | PN ---
Progress Note (short form) - Note Progress Note: Vascular Surgery Symptomatic Carotid stenosis CTA shows 75% stenosis. Pt with hemiparesis. Would fix Left ICA in 4-6 weeks once pt is asymptomatic. Please have pt come to clinic in 4 weeks. Please make appt prior to rehab -- [phone] Joe laurent DO
[2017-06-23] MEDS: ATORVASTATIN CA 40 MG TABLET (FP) PO SCH (21:59)
--- NOTE | 2017-06-23 22:01 | DS ---
Physical Exam: SUBJECTIVE: Patient seen and examined OBJECTIVE: Vital Signs Period Temp Pulse Resp BP Sys/White Pulse Ox Last 24 Hr 97.8 F-98.3 F 68-80 16-18 106-123/63-84 100 PHYSICAL EXAM GENERAL: The patient is awake, alert, and fully oriented, in no acute distress. HEAD: Normal with no signs of trauma. EYES: PERRL, extraocular movements intact, sclera anicteric, conjunctiva clear. ENT: Ears normal, nares patent, oropharynx clear without exudates, moist mucous membranes. NECK: Trachea midline, full range of motion, supple. LUNGS: Breath sounds equal, clear to auscultation bilaterally, no wheezes, no crackles, no accessory muscle use. HEART: Regular rate and rhythm, S1, S2 without murmur, rub or gallop. ABDOMEN: Soft, nontender, nondistended, normoactive bowel sounds, no guarding, no rebound, no hepatosplenomegaly, no masses. EXTREMITIES: 2+ pulses, warm, well-perfused, no edema. NEUROLOGICAL: Cranial nerves II through XII grossly intact. Normal speech, gait not observed. PSYCH: Normal mood, normal affect. SKIN: Warm, dry, normal turgor, no rashes or lesions noted. LABS Laboratory Results - last 24 hr 06/23/17 06/23/17 07:05 07:05 WBC 9.8 RBC 4.36 Hgb 14.8 Hct 42.4 MCV 97.2 H MCH 33.8 H MCHC 34.8 RDW 12.7 Plt Count 204 MPV 9.2 Neutrophils % 60.8 Lymphocytes % 28.1 D Monocytes % 6.0 Eosinophils % 4.4 Basophils % 0.7 Sodium 140 Potassium 3.8 Chloride 107 Carbon Dioxide 25 Anion Gap 8 BUN 19 H D Creatinine 1.0 D Creat Clearance w eGFR > 60 Random Glucose 85 Calcium 8.9 Total Bilirubin 0.6 D AST 19 ALT 15 Alkaline Phosphatase 67 Total Protein 6.5 Albumin 3.8 HOSPITAL COURSE: Date of Admission:06/21/17 Date of Discharge: 06/24/17 ASSESSMENT/PLAN: Patient is a 62 year old male with a past medical history of hypertension and chronic cocaine use. He presented to the ED on 06/21/2017 with right sided weakness. Imaging: -Moderate atherosclerotic dx, left greater than right, with stenosis in the 60- 70% range -Acute non hemorrhagic cerebral infarcts are identified within the distribution of the left mid and posterior cerebral arteris. Possible small lae subacute left basal gangila infarct -Neck CTA: apx 70-75% stenosis in the origin of the left internal carotid artery secondary to non calcified and calcified plaque. Apx 50% of stenosis at the origin of the right internal carotid artery secondary to calcified and non calc. plaque Neuro: Left MCA Territory acute stroke with right sided weakness/hemiparesis Carotid stenosis, symptomatic Imaging as noted above Discharge on ASA 81mg, Lipitor Seen by speech and swallow, swallow intact Physical therapy to continue at rehab Cardiology evaluation noted Vascular and Neuro following Vascular follow up within 4-6 weeks after asymptomatic Hypertension, stable monitor on tele Cardiology consult Psyche: Cocaine use, chronic No w/drawal symptoms on exam Tobacco cessation, chronic On Nicotine FEN PO intake Monitor electrolytes Low sodium diet On Lovenox daily and to continue at rehab until patient is able to ambulate. Disposition: full code. Discharge to [facility] on 06/24/2017. Discharge Summary Reason For Visit: CVA Current Active Problems Carotid stenosis, symptomatic, with infarction (Acute) Cerebrovascular accident (CVA) (Acute) Condition: Guarded - Instructions Diet, Activity, Other Instructions: Patient to be discharged to rehab on 06/24/[address] Geller office (Vascular) - [phone] for a follow up appointment in 4-6 weeks. Referrals: Angel Cazares MD [Staff Physician] - 2 Weeks Kannan Dukes DO [Staff Physician] - 2 Weeks Joe Geller MD [Staff Physician] - ( Please make appointment for 4-6 weeks follow up @ [phone] ) Disposition: TRANSFER ACUTE CARE/OTHER HOSP - Home Medications Comprehensive Discharge Medication List: Ambulatory Orders Aspirin [ASA -] 81 mg PO DAILY tab.chew 06/23/17 Atorvastatin Ca [Lipitor] 40 mg PO HS tablet 06/23/17 Enoxaparin [Lovenox -] 40 mg SQ DAILY disp.syrin 06/23/17 Melatonin 5 mg PO HS PRN tab 06/23/17 Nicotine Patch [Nicoderm Patch -] 21 mg TD DAILY patch 06/23/17
[2017-06-23] MEDS ORDERED: PT OWN MED DRAWER 7, Y5N ONE (23:01)
[2017-06-24] MEDS: NICOTINE 21 MG/24 HOURS TOPICAL PATCH TD SCH (09:07)
[2017-06-24] MEDS: ENOXAPARIN NA (PORCINE) 40 MG/0.4 ML DISP.SYRIN SQ SCH (09:07)
[2017-06-24] MEDS: ASPIRIN 81 MG CHEWABLE TABLETS PO SCH (09:07)
[2017-06-24 09:41] VITALS: BP 111/59; PULSE 78; TEMP 98.1
--- NOTE | 2017-06-24 11:24 | PN ---
Progress Note (short form) - Note Progress Note: s: no cp sob palps dizzy o: Vital Signs Period Temp Pulse Resp BP Sys/White Pulse Ox Last 24 Hr 98 F-98.4 F 68-80 16-18 102-123/59-84 96-97 nad no jvd rrr s1s2 no mrg cta bl nl eff aaox3 no le e/c/c no jaundice diaphoresis Current Medications Generic Name Dose Route Start Last Admin Trade Name Kvng PRN Reason Stop Dose Admin Aspirin 81 mg 06/22/17 10:00 06/24/17 09:07 Asa - PO 81 mg DAILY MICHAEL Administration Atorvastatin Calcium 40 mg 06/22/17 22:00 06/23/17 21:59 Lipitor - PO 40 mg HS MICHAEL Administration Enoxaparin Sodium 40 mg 06/22/17 10:00 06/24/17 09:07 Lovenox - SQ 40 mg DAILY MICHAEL Administration Melatonin 5 mg 06/23/17 00:32 06/23/17 23:03 Melatonin PO 5 mg HS PRN Administration INSOMNIA Nicotine 21 mg 06/21/17 19:00 06/24/17 09:07 Nicoderm Patch - TD 21 mg DAILY MICHAEL Administration CBC, BMP 06/23/17 07:05 06/23/17 07:05 tele: sr, occ pvcs ecg: sr, nl intervals, no ischemic changes echo 06/2017: nl lv/rv, no sig valve path, mild ao root dil cxr: no chf a/p: 62 m hx htn, active cocaine use here with right sided weakness. acute cva: -tele, echo benign -no signs acs -plans per neuro carotid stenosis: -cont asa, statin -vascular following, plans for elective cea in future htn: -stable off meds hld: -cont statin tob, cocaine use: -cessation discussed
== END 2017-06-24 11:57 | DRG 65 ==
LOC: JER 13:01 → JERBED 16:41 → J4W 18:55
PROVIDERS: ADMIT Internal Medicine; ATTEND Registered Nurse
DX: I63.232 Cerebral infarction due to unspecified occlusion or stenosis of left carotid arteries (principal); G81.91 Hemiplegia, unspecified affecting right dominant side; I10 Essential (primary) hypertension; F14.10 Cocaine abuse, uncomplicated; F17.200 Nicotine dependence, unspecified, uncomplicated; R29.706 NIHSS score 6; E78.5 Hyperlipidemia, unspecified
CPT/HCPCS: 36415; 70450-TC; 70498-TC; 70546-TC; 70549-TC; 70553-TC; 71045-TC-FY; 80053; 80307; 81003; 82465; 82550; 82553; 83718; 83721; 83735; 84100; 84478; 84484; 85025; 85610; 86850; 86900; 86901; 93005; 93010; 93306-TC; 93880-TC; 97116-GP; 97161-GP; 99285-25; J7030

== ENCOUNTER 2017-09-20 05:43 | Inpatient (IN) | payer OTHER ==
[2017-09-19 12:17] VITALS: BMI 18.7
--- NOTE | 2017-09-20 07:51 | HP ---
History & Physical Update - History History: No Change - Physical Physical: No Change - Assessment Assessment: No Change - Plan Plan: No Change (Initial H&P is located in patient's paper chart. No new complaints or medications.)
[2017-09-20] MEDS ORDERED: PNEUMOC 13-VAL CONJ-DIP CRM/PF 0.5 ML DISP.SYRIN IM ONE (13:01)
[2017-09-20] MEDS ORDERED: fentaNYL CITRATE 250 MCG/5 ML VIAL ONE (13:40)
[2017-09-20] MEDS ORDERED: MIDAZOLAM HCL 2 MG/2 ML SINGLE DOSE VIAL ONE ×4 (13:40)
[2017-09-20] MEDS ORDERED: ALBUTEROL SO4 18 GM HFA INHALER IH ONE (13:53)
[2017-09-20 13:58] LABS: COCAINE, UR POSITIVE ng/ml (CUTOFF=300); METHADONE, UR NEGATIVE ng/ml (CUTOFF=300); OPIATES, URI NEGATIVE ng/ml (CUTOFF=300); PHENCYCLIDINE,URINE NEGATIVE ng/ml (CUTOFF=25); URINE AMPHETAMINES NEGATIVE ng/ml (CUTOFF=500); URINE BARBITURATES NEGATIVE ng/ml (CUTOFF=200); URINE BENZODIAZEPINES NEGATIVE ng/ml (CUTOFF=200)
[2017-09-20] MEDS ORDERED: PROPOFOL 20 ML ONE (13:58)
[2017-09-20] MEDS ORDERED: ROCURONIUM BROMIDE 50 MG/5 ML VIAL ONE ×2 (14:01→14:55)
[2017-09-20] MEDS ORDERED: ePHEDrine SULFATE 50 MG/1 ML AMPULE ONE (14:11)
[2017-09-20] MEDS ORDERED: ceFAZolin SODIUM 1 GM VIAL IVPB ONE (14:15)
[2017-09-20] MEDS ORDERED: ceFAZolin SODIUM 1 GM VIAL ONE (14:15)
[2017-09-20] MEDS ORDERED: ONDANSETRON 4 MG/2 ML VIAL ONE (14:17)
[2017-09-20] MEDS ORDERED: DEXAMETHASONE SOD PHOSPHATE 4 MG/1 ML VIAL ONE (14:17)
[2017-09-20] MEDS ORDERED: POVIDONE-IODINE OINTMENT 10% - 28.4 GM TUBE TP ONE (15:01)
[2017-09-20] MEDS ORDERED: NEOSTIGMINE METHYLSULFATE 0.5 MG/ML - 10 ML MDV ONE (16:06)
[2017-09-20] MEDS ORDERED: GLYCOPYRROLATE 0.2 MG/1 ML VIAL ONE ×2 (16:06)
--- NOTE | 2017-09-20 16:17 | OP ---
Operative Note - Note: Operative Date: 09/20/17 Pre-Operative Diagnosis: Left Carotid stenosis, TIA secondary to clots showering Operation: Left CEA, repair with dacron patch Post-Operative Diagnosis: Same as Pre-op Surgeon: Joe Geller Credit Assistant: Deonte Gaxiola Anesthesiologist/EXECUTIVE OFFICE MANAGER: Flavio Ren Anesthesia: General Specimens Removed: Carotid plaque Estimated Blood Loss (mls): 20 Fluid Volume Replaced (mls): 900 Operative Report Dictated: Yes
--- NOTE | 2017-09-20 16:18 | SURG ---
Surgery Launchman Note Launchman: Deonte Gaxiola PA-C Date of Service: 09/20/17 Diagnosis: Left carotid stenosis, TIA secondary to showering clots Procedure: Left CEA I was present for the entirety of the operative procedure. For further detail, please refer to operative report. Visit type - Case Type Case Type: Scheduled - New patient This patient is new to me today: Yes Date on this admission: 09/20/17
[2017-09-20] MEDS ORDERED: ONDANSETRON 4 MG/2 ML VIAL IVPUSH PRN (16:28)
[2017-09-20] MEDS ORDERED: oxyCODONE HCL 5 MG TABLET PO PRN (16:28)
[2017-09-20] MEDS ORDERED: PROMETHAZINE HCL 25 MG/1 ML VIAL IVPB PRN (16:28)
[2017-09-20] MEDS ORDERED: LACTATED RINGERS SOLUTION 1,000 ML IV SCH (16:30)
[2017-09-20] MEDS ORDERED: morphine CARPU-JECT 4 MG/1 ML DISP.SYRIN IVPUSH PRN (16:41)
--- NOTE | 2017-09-20 20:05 | OP ---
DATE OF OPERATION: 09/20/2017 PREOPERATIVE DIAGNOSIS: Left carotid stenosis with transient ischemic attack. POSTOPERATIVE DIAGNOSIS: Left carotid stenosis with transient ischemic attack. PROCEDURE: Left carotid endarterectomy with patch. SURGEON: Joe Clemente D.O. QUANTITATIVE ANALYST DEVELOPER: Lisandra Perdue ANESTHESIA: General. BLOOD LOSS: 50 mL. INDICATION: The patient is a 62-year-old male that has been having multiple TIAs over the last year and was here at the hospital for a couple of months ago for TIA. He is a heavy smoker. He has been smoking for about 40 to 50 years over 1-2 packs a day, has now cut down to half a pack a day. He also has a long history of substance abuse with cocaine. He came to our office 2-3 weeks ago and had a CTA performed showing 70% to 75% stenosis in the left ICA. He was having symptomatic TIAs up until even last week, where he had some blurry vision in his left eye. Patient came into ambulatory surgery. Patient was consented for the procedure, understanding all risks, benefits, and alternatives, understanding the risks of bleeding, infection, clot formation, stroke. Patient was then brought to the operating room, laid down on the operating table in the supine manner. General anesthesia was administered. A line was placed. We then went ahead and using ultrasound guidance marked left carotid bifurcation and through an incision on the border of the sternocleidomastoid muscle for about 5 cm. We then prepped and draped the left neck in the sterile surgical manner. We then went ahead and using a 15 blade made a 6-cm incision. Bovie cautery was used to control hemostasis. We were able to use electrocautery and get through all the subcutaneous tissue and get through the platysma. We then used Weitlaners and we were able to dissect off the sternocleidomastoid muscle, and we were able to displace that with our retractors. We then recognized the internal jugular vein, and then recognized the common facial vein. Common facial vein was then ligated using 2-0 silk. It was tied and ligated. We then got down to the carotid sheath. Carotid sheath was then dissected using Metzenbaum scissors, and we were able to dissect out the common carotid artery first, making sure to not injure the vagus nerve, taking care not to injure the vagus nerve. Once that was done, once we had the common carotid freed up, placed a vessel loop around it. We then went ahead and dissected out our internal carotid artery including our first branch which was the superior thyroid artery, and we were able to place a vessel loop around both. We then administered 5000 units of IV heparin to the patient. We then went ahead and dissected out or internal carotid artery. The bifurcation was high and we were able to, once we placed our retractors in, we were able to identify our digastric muscle, and right below the digastric muscle we were able to visualize the hypoglossal nerve. We took care not to injure the hypoglossal nerve. At this point we then went ahead and ligated our digastric muscle so that we could get to higher on our left internal carotid artery. The internal carotid artery was then dissected anterior and posteriorly, and then we were able to place our vessel loop around it. After patient was on IV heparin for 3 minutes, we went ahead and used our vessel loops and tightened the internal carotid first and then the external carotid, and then we placed our vascular clamp on our common carotid artery. We then went ahead and using a 15 blade made an incision on the common carotid and extended that using Carrillo scissors all the way into the internal carotid artery. As we opened internal carotid artery you could see that there was 80% to 90% stenosis there with a ruptured plaque in the form of clot. We then opened our internal carotid artery to check the backbleeding, and there was tremendous backbleeding, and even a clot was evacuated from the ICA. We then put a clip on our ICA. We then went ahead and used a [place] elevator, we were able to excavate the entire plaque from the common carotid to the ICA. Once that was removed, we took heparinized saline and we made sure there were no free flaps that were visible. We then went ahead and took an 8 x 5 Vascutek Dacron patch, and we went ahead using 6-0 Prolene double arm we were able to suture that in in 4 quadrant technique. Once all 4 quadrants were sutured in, before the last quadrant was sutured in, we were able to flush the carotid. We then went ahead and opened our internal carotid artery, then we closed the internal carotid artery to make sure the backbleeding was good. We then went ahead and opened the external carotid artery, the common carotid artery , and after that we opened the internal carotid artery again. Once open, there was minimal bleeding. We put some Surgicel using a Doppler signal. We were able to listen to the common carotid, the external carotid, and the internal carotid, and there was good triphasic to biphasic signal. At this point we irrigated the wound copiously, 3-0 Vicryl was then used in the subcutaneous tissue and the platysma was approximated. Skin was closed with skin macy. Area Tegaderm was placed. Patient was then extubated. Once patient was extubated, patient was able to follow commands. Patient was able to move the right side of his body. He was able to stick out his tongue and did not show any neurological deficits. Patient was transferred to PACU in stable condition . Total blood loss is 50 mL. JOE CLEMENTE DO [id number]
--- NOTE | 2017-09-20 21:49 | CONSULT ---
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 Pt has hx of hyperlipidemia, COPD, tobacco and cocaine use. After the stroke in June, workup (CTA and Carotid duplex) revealed severe L ICA plaque with ~75% stenosis. He was pre-op'd with Dr Draper, had stress test which was non -ischemic, and presented today for elective surgery. Today surgery was uneventful, there was minimal blood loss, received 900cc of crystaloid, and was extubated in PACU. 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 Cardio/Vascular: Yes: HTN, Hyperlipdemia Pulmonary: Yes: COPD - Alcohol/Substance Use Hx Alcohol Use: No (2-3/week) History of Substance Use: reports: Cocaine - Smoking History Smoking history: Current every day smoker Have you smoked in the past 12 months: Yes Aproximately how many cigarettes per day: 10 - Social History ADL: Independent History of Recent Travel: No Home Medications - Allergies Allergies/Adverse Reactions: Allergies Allergy/AdvReac Type Severity Reaction Status Date / Time No Known Allergies Allergy Verified 09/20/17 13:08 - Home Medications Home Medications: Ambulatory Orders Aspirin [ASA -] 81 mg PO DAILY tab.chew 06/23/17 Atorvastatin Ca [Lipitor] 40 mg PO HS tablet 06/23/17 Gabapentin 300 mg PO BID 09/20/17 Metoprolol Tartrate 25 mg PO BID 09/20/17 Family Disease History - Family Disease History Family History: Unable to Obtain (adopted) Review of Systems Findings/Remarks: 10 pt review negative except as per HPI Physical Exam Vital Signs: Vital Signs Temperature 97.8 F 09/20/17 20:11 Pulse Rate 82 09/20/17 20:11 Respiratory Rate 18 09/20/17 20:11 Blood Pressure 96/67 09/20/17 20:11 O2 Sat by Pulse Oximetry (%) 96 09/20/17 20:05 Constitutional: Yes: Well Nourished, No Distress Eyes: Yes: Conjunctiva Clear, EOM Intact, PERRL HENT: Yes: Atraumatic, Normocephalic Neck: Yes: Supple, Trachea Midline, Tenderness, Other (L CEA surgical site, dressed, mild swelling, no bleeding) Cardiovascular: Yes: Regular Rate and Rhythm, S1, S2. No: Gallop, Murmur, Rub Respiratory: Yes: Regular, CTA Bilaterally, On Nasal O2. No: Accessory Muscle Use, SOB, Wheezes Gastrointestinal: Yes: Normal Bowel Sounds, Soft ...Rectal Exam: Yes: Deferred Renal/: Yes: WNL Breast(s): Yes: WNL Musculoskeletal: Yes: WNL Edema: No Peripheral Pulses WNL: No (weak pulses bilater LE) Neurological: Yes: Alert, Oriented ...Motor Strength: RUE (4/) Psychiatric: Yes: WNL Labs: No post op labs, AM to be sent. Problem List - Problems (1) Carotid stenosis, symptomatic, with infarction Code(s): I63.239 - CEREB INFRC DUE TO UNSP OCCLS OR STENOS OF UNSP CAROTID ART (2) Cerebrovascular accident (CVA) Code(s): I63.9 - CEREBRAL INFARCTION, UNSPECIFIED Qualifiers: CVA mechanism: unspecified Qualified Code(s): I63.9 - Cerebral infarction, unspecified Assessment/Plan 62 y/o man with carotid atherosclerosi, HTN, hx of L MCA CVA now S/p uneventful CEA with Dr Geller in ICU for O/n observation S/p L CEA HTN HL neuropathy Tobacco and Cocaine use/abuse -pain control, oxycodone & morphine PRN -neurontin -restart BB, statin - restart ASA as per Surg - wound checks -OOB in am -SCD [place] ANCP [id number]
[2017-09-20] MEDS ORDERED: CHLORHEXIDINE GLUCONATE 4% CLEANSER FOR DECOLONIZATION TP SCH (22:00)
[2017-09-20] MEDS: MUPIROCIN 2% TOPICAL OINTMENT FOR DECOLONIZATION NS SCH (22:39)
[2017-09-20] MEDS: METOPROLOL TARTRATE 25 MG TABLET (FP) PO SCH (22:39)
[2017-09-20] MEDS: GABAPENTIN 300 MG CAPSULE (FP) PO SCH (22:39)
[2017-09-20] MEDS ORDERED: morphine SULFATE 4 MG/ML VIAL IVPUSH PRN (23:45)
--- NOTE | 2017-09-21 09:40 | PN ---
Progress Note (short form) - Note Progress Note: Vascular Surgery Pt seen and examined. Bandage removed. Will place bacitracin to staple line. Pt doing well, no defecits. Plavix started today. Pt to be discharged today after ambulating. Pt to start plavix at home. Return to clinic in one week for staple removal. Joe Geller DO
[2017-09-21] MEDS: MUPIROCIN 2% TOPICAL OINTMENT FOR DECOLONIZATION NS SCH ×2 (10:00→21:10)
[2017-09-21] MEDS ORDERED: CLOPIDOGREL BISULFATE 75 MG TABLET (FP) PO SCH (10:00)
[2017-09-21] MEDS: GABAPENTIN 300 MG CAPSULE (FP) PO SCH ×2 (10:46→21:09)
[2017-09-21] MEDS: METOPROLOL TARTRATE 25 MG TABLET (FP) PO SCH ×2 (10:46→21:09)
--- NOTE | 2017-09-21 11:03 | PN ---
Physical Exam: SUBJECTIVE: Patient seen and examined. S/P L CEA Offers no complaints On RA Saturation 100% OBJECTIVE: Vital Signs Period Temp Pulse Resp BP Sys/White Pulse Ox Last 24 Hr 97.8 F-98.6 F 62-97 14-20 96-130/63-80 95-100 GENERAL: The patient is awake, alert, and fully oriented, in no acute distress. EYES: PERRL, extraocular movements intact, sclera anicteric ENT: oropharynx clear without exudates, moist mucous membranes. NECK: supple, dressing on L side of neck. LUNGS: Breath sounds equal, clear to auscultation bilaterally HEART: Regular rate and rhythm, S1, S2 without murmur, rub or gallop. ABDOMEN: Soft, nontender, nondistended, normoactive bowel sounds EXTREMITIES: 2+ pulses, warm, well-perfused, no edema. NEUROLOGICAL: Cranial nerves II through XII grossly intact. 5/5 strength LUE,LLE , 4/5 RUE, LUE PSYCH: Normal mood, normal affect. Laboratory Results - last 24 hr 09/20/17 09/20/17 12:30 13:00 Opiates Screen Negative Methadone Screen Negative Barbiturate Screen Negative Phencyclidine Screen Negative Ur Amphetamines Screen Negative MDMA (Ecstasy) Screen Negative Benzodiazepines Screen Negative Cocaine Screen Positive U Marijuana (THC) Screen Negative Blood Type O POSITIVE Antibody Screen Negative Crossmatch See Detail Active Medications Generic Name Dose Route Start Last Admin Trade Name Freq PRN Reason Stop Dose Admin Chlorhexidine Gluconate 1 applic 09/20/17 22:00 09/20/17 22:39 Hibiclens For Decolonization - TP 1 applic HS MICHAEL Administration Clopidogrel Bisulfate 75 mg 09/21/17 10:00 Plavix - PO DAILY MICHAEL Fentanyl 25 mcg 09/20/17 16:50 Sublimaze Injection - IVPUSH [id number] PRN PAIN-PACU ORDER X 4 DOSES ONLY Gabapentin 300 mg 09/20/17 22:00 09/21/17 10:46 Neurontin - PO 300 mg BID MICHAEL Administration Metoprolol Tartrate 25 mg 09/20/17 22:00 09/21/17 10:46 Lopressor - PO 25 mg BID MICHAEL Administration Morphine Sulfate 4 mg 09/20/17 23:45 09/20/17 23:53 Morphine Sulfate IVPUSH 4 mg Q4H PRN Administration PAIN LEVEL 6-10 Mupirocin 1 applic 09/20/17 22:00 09/20/17 22:39 Bactroban Ointment (For Decolonization) - NS 09/25/17 21:59 1 applic BID MICHAEL Administration ASSESSMENT/PLAN: S/P L CEA -pain control with morphine, oxycodone -restart ASA -wounds checks -fu Vascular reccs #HTN -cont home meds -BB #Diabetic neuropathy -cont. Neurontin #FEN -No iv fluids -WNL -regular diet #DVT -Scds Discharge patient home. Visit type - Emergency Visit Emergency Visit: Yes ED Registration Date: 09/20/17 Care time: The patient presented to the Emergency Department on the above date and was hospitalized for further evaluation of their emergent condition. - New Patient This patient is new to me today: Yes Date on this admission: 09/21/17 - Critical Care Critical Care patient: Yes Total Critical Care Time (in minutes): 35 Critical Care Statement: The care of this patient involved high complexity decision making to prevent further life threatening deterioration of the patient 's condition and/or to evaluate & treat vital organ system(s) failure or risk of failure.
[2017-09-21] MEDS ORDERED: BACITRACIN 15 GM TUBE TOPICAL OINTMENT TP SCH (11:15)
--- NOTE | 2017-09-21 11:31 | PN ---
Teaching Attending Note Name of Resident: Glynn Almanzar ATTENDING PHYSICIAN STATEMENT I saw and evaluated the patient. I reviewed the resident's note and discussed the case with the resident. I agree with the resident's findings and plan as documented. SUBJECTIVE: Pt seen and examined in the ICU. s/p L CEA. No complications. Cleared for discharge. OBJECTIVE: Vital Signs Period Temp Pulse Resp BP Sys/White Pulse Ox Last 24 Hr 97.8 F-98.6 F 62-97 14-20 96-130/63-80 95-100 Intake & Output 09/18/17 09/19/17 09/20/17 09/21/17 23:59 23:59 23:59 23:59 Intake Total 2340 340 Output Total 50 200 Balance 2290 140 Weight 62.596 kg Gen: NAD at rest Heart: RRR Lung: decreased breath sounds at the bases Abd: soft, nontender Ext: no edema Active Medications Bacitracin (Bacitracin -) 1 applic TP BID [facility] Chlorhexidine Gluconate (Hibiclens For Decolonization -) 1 applic TP HS [facility] Last Admin: 09/20/17 22:39 Dose: 1 applic Clopidogrel Bisulfate (Plavix -) 75 mg PO DAILY [facility] Last Admin: 09/21/17 11:11 Dose: 75 mg Fentanyl (Sublimaze Injection -) 25 mcg IVPUSH [id number] PRN PRN Reason: PAIN-PACU ORDER X 4 DOSES ONLY Gabapentin (Neurontin -) 300 mg PO BID [facility] Last Admin: 09/21/17 10:46 Dose: 300 mg Metoprolol Tartrate (Lopressor -) 25 mg PO BID [facility] Last Admin: 09/21/17 10:46 Dose: 25 mg Morphine Sulfate (Morphine Sulfate) 4 mg IVPUSH Q4H PRN PRN Reason: PAIN LEVEL 6-10 Last Admin: 09/20/17 23:53 Dose: 4 mg Mupirocin (Bactroban Ointment (For Decolonization) -) 1 applic NS BID [facility] Stop: 09/25/17 21:59 Last Admin: 09/20/17 22:39 Dose: 1 applic ASSESSMENT AND PLAN: Carotid Stenosis s/p L CEA HTN Hyperlipidemia h/o CVA Smoker - plavix - pain control - d/c arterial line - ambulate - d/c home
--- NOTE | 2017-09-21 13:15 | PN ---
Progress Note (short form) - Note Progress Note: POD #1 - s/p left carotid endarterectomy under GA. VSS. Pt. doing well, resting comfortably in bed. No complaints. No apparent anesthetic complications noted. To be discharged later today.
[2017-09-21] MEDS ORDERED: PNEUMOC 13-VAL CONJ-DIP CRM/PF 0.5 ML DISP.SYRIN IM ONE (15:59)
[2017-09-21] MEDS ORDERED: morphine SULFATE 4 MG/ML VIAL IVPUSH PRN (17:00)
[2017-09-21] MEDS ORDERED: PNEUMOCOCCAL 23 VACCINE 0.5 ML VIAL IM ONE (17:00)
[2017-09-21] MEDS: BACITRACIN 15 GM TUBE TOPICAL OINTMENT TP SCH (21:11)
[2017-09-21] MEDS ORDERED: CHLORHEXIDINE GLUCONATE 4% CLEANSER FOR DECOLONIZATION TP SCH (22:00)
[2017-09-22] MEDS: BACITRACIN 15 GM TUBE TOPICAL OINTMENT TP SCH ×2 (09:28→22:28)
[2017-09-22] MEDS: GABAPENTIN 300 MG CAPSULE (FP) PO SCH ×2 (09:29→22:28)
[2017-09-22] MEDS: MUPIROCIN 2% TOPICAL OINTMENT FOR DECOLONIZATION NS SCH (09:29)
[2017-09-22] MEDS: METOPROLOL TARTRATE 25 MG TABLET (FP) PO SCH ×2 (09:29→22:28)
[2017-09-22] MEDS: CLOPIDOGREL BISULFATE 75 MG TABLET (FP) PO SCH (09:29)
--- NOTE | 2017-09-22 12:07 | PATH ---
Surgical Pathology Report Patient Name: ISRA BARRIOS Med. Rec. #: [id number] /Age/Gender: 1955 (Age: 62) / M Account: [id number] Location: [facility] MED/SURG Taken: 09/20/2017 Received: 09/21/2017 Reported: 09/22/2017 Physicians: Joe Geller Specimen(s) Received PLAQUE FROM LEFT CAROTID Clinical History Left carotid stenosis Final Diagnosis CAROTID, LEFT, PLAQUE, ENDARTERECTOMY: ATHEROMATOUS AND CALCIFIED PLAQUE. Electronically Signed Tami Hernandez M.D. Gross Description Received in formalin labeled "plaque from left carotid" are multiple fragments of focally calcified yellow -jacobo tissue measuring 3.5 x 2.5 x 1 cm in aggregate. Cushion Maker sections are submitted in one cassette after brief decalcification. KIMBERLEY/09/21/2017 jessica/09/21/2017
--- NOTE | 2017-09-22 18:20 | PN ---
Progress Note (short form) - Note Progress Note: Vascular Surgery Pt seen and examined. POD #2 Left CEA Doing well. Having trouble when he walks. feels dizzy. Pt has a dropped foot, which started when he had a stroke in the past. He uses a cane to walk. Pt prefers to go to rehab -- awaiting placement. Joe Geller DO
[2017-09-23] MEDS: METOPROLOL TARTRATE 25 MG TABLET (FP) PO SCH ×2 (09:44→21:36)
[2017-09-23] MEDS: BACITRACIN 15 GM TUBE TOPICAL OINTMENT TP SCH ×2 (09:44→22:25)
[2017-09-23] MEDS: GABAPENTIN 300 MG CAPSULE (FP) PO SCH ×2 (09:44→21:36)
[2017-09-23] MEDS: CLOPIDOGREL BISULFATE 75 MG TABLET (FP) PO SCH (09:44)
[2017-09-24] MEDS: CLOPIDOGREL BISULFATE 75 MG TABLET (FP) PO SCH (11:05)
[2017-09-24] MEDS: GABAPENTIN 300 MG CAPSULE (FP) PO SCH (11:05)
[2017-09-24] MEDS: BACITRACIN 15 GM TUBE TOPICAL OINTMENT TP SCH (11:05)
[2017-09-24 11:49] VITALS: BP 90/66; PULSE 72; TEMP 98.6
[2017-09-24] MEDS: METOPROLOL TARTRATE 25 MG TABLET (FP) PO SCH (14:24)
== END 2017-09-24 15:42 | disposition home or self-care (01) | DRG 38 ==
LOC: JSAMEDAYSX 05:43 → EDSTATUS 14:30 → JICU 17:20 → J8W 09-21 16:53
PROVIDERS: ADMIT Surgery Vascular Surgery; ATTEND Surgery Vascular Surgery
PROC: 03CL0Z6 (ICD-10-PCS; 2017-09-20)
PROC: 03UJ0JZ Supplement Left Common Carotid Artery with Synthetic Substitute, Open Approach (ICD-10-PCS; 2017-09-20)
PROC: 03CJ0ZZ Extirpation of Matter from Left Common Carotid Artery, Open Approach (ICD-10-PCS; principal; 2017-09-20 14:30)
DX: I65.22 Occlusion and stenosis of left carotid artery (principal); I69.351 Hemiplegia and hemiparesis following cerebral infarction affecting right dominant side; J44.9 Chronic obstructive pulmonary disease, unspecified; E78.5 Hyperlipidemia, unspecified; F14.10 Cocaine abuse, uncomplicated; Z72.0 Tobacco use; E11.40 Type 2 diabetes mellitus with diabetic neuropathy, unspecified; M21.371 Foot drop, right foot
CPT/HCPCS: 36415; 80053; 80307; 85025; 85610; 86850; 86900; 86901; 86922; 88304-TC; 90732; 94760; 97116-GP; 97162-GP; G0009; G0463-25; J1644

== ENCOUNTER 2018-09-29 18:01 | Inpatient (IN) | payer OTHER ==
[2018-09-29 19:12] LABS: BASO % 0.7 % (0-2.0); EOS % 1.3 % (0-4.5); HEMATOCRIT 43.2 % (35.4-49); LYMPH % 22.7 % (8-40); MCH 33.3 pg (25.7-33.7); MCHC 34.8 g/dl (32.0-35.9); MEAN CELL VOLUME 95.9 fl (80-96); MEAN PLT VOLUME 8.9 fl (7.5-11.1); NEUT % 70.3 % (42.8-82.8); PLATELET COUNT 193 K/MM3 (134-434); RDW 12.7 % (11.9-15.9); WHITE BLOOD COUNT 10.6 K/mm3 (4.0-10.0)
[2018-09-29] MEDS ORDERED: FOLIC ACID INJECTION - 1 MG, THIAMINE HCL 100 MG, MULTIVIT INJECTION ADULT 10 ML in SOD... IVPB ONE (19:26)
[2018-09-29 19:36] LABS: ALBUMIN 4.2 g/dl (3.4-5.0); ALK PHOS 80 U/L (45-117); ANION GAP 8 MMOL/L (8-16); BILIRUBIN,TOTAL 0.6 mg/dL (0.2-1); BLOOD UREA NITROGEN 10.4 mg/dL (7-18); CALCIUM 9.6 mg/dL (8.5-10.1); CHLORIDE 107 mmol/L (98-107); CO2 24 mmol/L (21-32); CREATININE 0.9 mg/dL (0.55-1.3); GLUCOSE,RANDOM 75 mg/dL (74-106); MAGNESIUM 2.1 mg/dL (1.8-2.4); SGOT/AST 24 U/L (15-37); SGPT/ALT 24 U/L (13-61); SODIUM 139 mmol/L (136-145); TOT PROT 7.3 g/dl (6.4-8.2)
[2018-09-29 19:39] LABS: INR 0.94 (0.83-1.09); PROTHROMBIN TIME (PATIENT) 11.1 SEC (9.7-13.0)
[2018-09-29] MEDS ORDERED: ALBUTEROL SO4 2.5/IPRATROPIUM 0.5 INH SOL 3 ML VIAL.NEB. NEB ONE ×2 (22:32→22:54)
[2018-09-29] MEDS ORDERED: methylPREDNISolone NA SUCC 125 MG/2 ML VIAL IVPB ONE (22:33)
--- NOTE | 2018-09-29 22:50 | PN ---
Teaching Attending Note Name of Resident: Tami Renteria ATTENDING PHYSICIAN STATEMENT I saw and evaluated the patient. I reviewed the resident's note and discussed the case with the resident. I agree with the resident's findings and plan as documented. SUBJECTIVE: Patient is a 63 year old man with a PMH of HLD, HTN, Cocaine use, Tobacco use, and left MCA distribution infarct, severe left internal carotid stenosis at origin (s/p left carotid endarterectomy), remote alcohol abuse and chronic right sided weakness, who presents to the ER with malaise and right shoulder pain. Says he had a stroke about 1 year ago and has since suffered from chronic right sided weakness and pain. Says his right shoulder pain is a sharp pain radiating up his neck. Patient reports the pain was worse today than normal noting a sudden onset of dyspnea and diaphoresis prompting him to come in to the ER. Denies cough. Patient also notes lower back pain and a recent weight loss of approximately 20 lbs. Patient reports last food intake was a few days ago and used cocaine last night. Says appetite is poor. Uses a wheeled walker since his stroke. He denies headache, dizziness, fever, nausea, vomiting, diarrhea, constipation, dysuria, frequency, urgency or hematuria. OBJECTIVE: Alert and has tachypnea on minimal exertion. Vital Signs Period Temp Pulse Resp BP Sys/White Pulse Ox Last 24 Hr 97.6 F-97.9 F 74-85 17-20 137-150/75-91 96-98 HEENT: No Jaundice, eye redness or discharge, PERRLA, EOMI. Normocephalic, atraumatic. Poor dentition. External ears are normal and hearing is grossly intact. No nasal discharge. Neck: Supple, nontender. No palpable adenopathy or thyromegaly. No JVD Chest: Good effort. Prolonged expiration. No wheezing. Clear to percussion. Heart: Regular. No S3, rub or murmur Abdomen: Not distended, soft, nontender and no HSM. No rebound or guarding. Normal bowel sounds. Ext: Peripheral pulses intact. No leg edema. Skin: Warm and dry. No petechiae, rash or ecchymosis. Neuro: Alert. Oriented x3. CN 2-12 grossly intact. Sensation grossly intact in all four extremities; right hemiparesis. Plantar reflexes are flexor. Gait cannot be tested for safety reasons. Psych: Appropriate mood and affect. Good insight. Current Medications Generic Name Dose Route Start Last Admin Trade Name Kvng PRN Reason Stop Dose Admin Folic Acid 1 mg/ Thiamine HCl 1,000 mls @ 125 mls/hr 09/29/18 19:26 09/29/18 20:45 100 mg/ Multivitamins/Minerals IVPB 09/30/18 03:25 125 mls/hr 10 ml/ Sodium Chloride ONCE ONE Administration Home Medications Medication Instructions Recorded Atorvastatin Ca [Lipitor] 40 mg PO HS tablet 06/23/17 Clopidogrel Bisulfate [Plavix -] 75 mg PO DAILY #30 tablet 09/21/17 Abnormal Lab Results 09/29/18 09/29/18 09/29/18 19:00 19:00 22:40 WBC 10.6 H ABG pH 7.46 H ABG pCO2 at Pt Temp 33.7 L Carboxyhemoglobin 2.8 H CK-MB (CK-2) 4.7 H ASSESSMENT AND PLAN: 1. COPD exacerbation? - Does not have an official diagnosis of COPD yet. Possibly had acute brochospasm following cocaine use. Will treat with Duoneb, Nasal canula oxygen and Solumedrol 40 mg IV q 8 hours. CXR shows hyperinflation , increased interstitial markings but no acute infiltrates. EKG is NSR with no significant ST-T wave changes. Initial troponin is negative. ECHO from 06/22/17 showed normal LV and RV function. Will repeat EKG and troponin to rule out ACS in view of cocaine use. Consult Pulmonary for outpatient PFT - confirm COPD and initiate appropriate outpatient therapy. Get urinalysis. Continue comprehensive care of all his comorbid conditions. 2. Tobacco Use Counseled on risks associated with tobacco use. We will provide patient all the necessary assistance to facilitate smoking cessation and prescribe Nicotine patch. 3. Cocaine and Alcohol abuse - Will implement [facility] alcohol withdrawal protocol and do neurochecks. Implement seizure, fall and aspiration precautions. Treat with thiamine and folic acid and monitor electrolytes (Ca,Mg, K,P). Counseled patient about abstaining from alcohol and cocaine. Will consult bed control specialist and refer to alcohol/drug detox upon discharge. 4. Hypertension - No antihypertensive drug listed for him. Will monitor BP and treat with amlodipine if necessary. Nonpharmacologic measures to control hypertension like weight loss, salt restriction and exercise discussed. 5. DVT prophylaxis - Lovenox 40 mg SQ q 24 hours. 6. Advance directives - Full code
[2018-09-29 22:53] LABS: ARTERIAL BLD GAS O2 SATURATION 97.5 % (95-98); ARTERIAL BLOOD GAS BASE EXCESS 0.6 meq/l (-2-2); ARTERIAL BLOOD GAS PCO2 33.7 mmHg (35-45); ARTERIAL BLOOD GAS PO2 89.6 mmHg (80-105); ARTERIAL BLOOD GAS pH 7.46 (7.35-7.45); CARBOXYHEMOGLOBIN 2.8 % (0-2)
[2018-09-29 22:54] LABS: ALLENS TEST POSITIVE
[2018-09-29] MEDS ORDERED: methylPREDNISolone NA SUCC 125 MG/2 ML VIAL ONE (22:55)
[2018-09-29] MEDS ORDERED: ALBUTEROL SO4 0.083% IH SOL 2.5 MG/3 ML VIAL.NEB. NEB PRN (23:16)
--- NOTE | 2018-09-29 23:43 | HP ---
CHIEF COMPLAINT: weakness, pain, SOB PCP: HISTORY OF PRESENT ILLNESS: Patient is a 63 y/o male with a history of HLD, cocaine abuse, CVA ( 06/25), left carotid endarterectomy (09/25), and chronic pain who presents for pain, weakness, and shortness of breath. Per patient he has chronic pain on the side affected by the stroke especially in the right neck area. he does not take anything at home for the pain for various reasons. He does not follow with anyone for the pain. He has difficulty getting around at home due to the residual weakness. He sometimes feels short of breath. He denies any lung history. His last use of cocaine was one day ago, states he has trouble quitting. He drank three beers today, but states he drinks less recently sometimes going weeks without drinking. Patient states he takes a "blood thinner " medication and "cholesterol busting" medication. Denies fevers, chills, nausea , vomiting, and wheezing. States his shortness of breath resolved and his pain is getting better. Per ED and nurse patient desated below 90 for an unknown amount of time and was placed on NC. While examining patient off NC his oxygen remained above 95 throughout exam. Patient had not received any medications before my examination. ER course was notable for: (1)banana bag (2) (3) Recent Travel: PAST MEDICAL HISTORY: HLD, cocaine abuse, CVA ( 06/25), left carotid endarterectomy (09/25), and chronic pain PAST SURGICAL HISTORY: left carotid endarterectomy (09/25) Social History: Smokin pack a day for 50 years Alcohol: heavy past history per patient he drinks less as of recent Drugs: cocaine, last use yesterday Family History: Allergies No Known Allergies Allergy (Verified 09/29/18 18:11) HOME MEDICATIONS: Home Medications Medication Instructions Recorded Atorvastatin Ca [Lipitor] 40 mg PO HS tablet 06/23/17 Clopidogrel Bisulfate [Plavix -] 75 mg PO DAILY #30 tablet 09/21/17 REVIEW OF SYSTEMS CONSTITUTIONAL: Absent: fever, chills, diaphoresis, generalized weakness, malaise, loss of appetite, weight change HEENT: Absent: rhinorrhea, nasal congestion, throat pain, throat swelling, difficulty swallowing, mouth swelling, ear pain, eye pain, visual changes CARDIOVASCULAR: Absent: chest pain, syncope, palpitations, irregular heart rate, lightheadedness , peripheral edema RESPIRATORY: shortness of breath Absent: cough, dyspnea with exertion, orthopnea, wheezing, stridor, hemoptysis GASTROINTESTINAL: Absent: abdominal pain, abdominal distension, nausea, vomiting, diarrhea, constipation, melena, hematochezia GENITOURINARY: Absent: dysuria, frequency, urgency, hesitancy, hematuria, flank pain, genital pain MUSCULOSKELETAL: neck pain Absent: myalgia, arthralgia, joint swelling, back pain SKIN: Absent: rash, itching, pallor HEMATOLOGIC/IMMUNOLOGIC: Absent: easy bleeding, easy bruising, lymphadenopathy, frequent infections ENDOCRINE: Absent: unexplained weight gain, unexplained weight loss, heat intolerance, cold intolerance NEUROLOGIC: Absent: headache, focal weakness or paresthesias, dizziness, unsteady gait, seizure, mental status changes, bladder or bowel incontinence PSYCHIATRIC: Absent: anxiety, depression, suicidal or homicidal ideation, hallucinations. PHYSICAL EXAMINATION Vital Signs Temperature 97.6 F 09/29/18 19:10 Pulse Rate 74 09/29/18 19:10 Respiratory Rate 17 09/29/18 19:10 Blood Pressure 150/91 09/29/18 19:10 O2 Sat by Pulse Oximetry (%) 98 09/29/18 19:10 GENERAL: Awake, alert, and fully oriented, in no acute distress. HEAD: Normal with no signs of trauma. EYES: Pupils equal, round and reactive to light, extraocular movements intact, EARS, NOSE, THROAT: Moist mucous membranes. NECK: Normal range of motion, LUNGS: Breath sounds equal, clear to auscultation bilaterally. No wheezes, and no crackles. No accessory muscle use. oxygen saturation > 90% HEART: Regular rate and rhythm, normal S1 and S2 without murmur, rub or gallop. ABDOMEN: Soft, nontender, not distended, normoactive bowel sounds, no guarding, no rebound, no masses. No hepatomegaly or splenomegaly. MUSCULOSKELETAL: Normal range of motion at all joints. 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 CBC, BMP 09/29/18 19:00 09/29/18 19:00 ASSESSMENT/PLAN: Patient is a 63 y/o male with a history of HLD, cocaine abuse, CVA ( 06/25), left carotid endarterectomy (09/25), and chronic pain who presents for pain, weakness, and shortness of breath. #SOB - 2/2 to new onset COPD vs pain related, vs baseline - methylprednisolone 40 q8, can likely reduce dose in AM - no signs of infection at this time - albuterol q4h prn - Nasal Cannula as needed to keep O2 above 88% - pulm consult - would recommend outpatient Pulm and PFT testing #chronic pain - likely 2/2 to stroke hx - negative troponin, no EKG changes, not cardiac in history - trend troponin, repeat EKG - can give tylenol for pain #alcohol history - patient received banana bag in the ED - CIWA 0 on presentation, no signs of withdrawl - monitor electrolytes - will give thiamine and folate #CVA hx - continue clopidogrel 75 mg - continue atorvastatin 40 mg #HTN - one documented episode for this admission - monitor and consider medication if persists #DVT ppx - SCD's FEN - low sodium diet Dispo: monitor on med surg, patient likely to go home tomorrow Visit type - Emergency Visit Emergency Visit: Yes ED Registration Date: 09/29/18 Care time: The patient presented to the Emergency Department on the above date and was hospitalized for further evaluation of their emergent condition. - New Patient This patient is new to me today: Yes Date on this admission: 09/30/18 - Critical Care Critical Care patient: No
--- NOTE | 2018-09-29 23:49 | PDOC ---
Documentation entered by Linda Borja SCRIBE, acting as scribe for Rose Cottrell MD. Rose Cottrell MD: This documentation has been prepared by the Huong figueredo Mackenzie, SCRIBE, under my direction and personally reviewed by me in its entirety. I confirm that the documentation accurately reflects all work, treatment, procedures, and medical decision making performed by me. History of Present Illness - General Chief Complaint: Chest Pain Stated Complaint: CHEST PAIN Time Seen by Provider: 09/29/18 19:02 History Source: Patient Exam Limitations: No Limitations - History of Present Illness Initial Comments: The patient is a 63 year old male, with a significant PMH of HLD, cocaine use, tobacco use, and chronic right sided weakness, who presents to the emergency department with malaise and right shoulder pain. Patient claims he had a stroke approximately 1 year ago and has since suffered from chronic right sided weakness and pain. Patient states his right shoulder pain is a sharp pain radiating up his neck. Patient reports the pain was worse today than normal noting a sudden onset of dyspnea and diaphoresis prompting him to come in to the ED. Patient also notes lower back pain and a recent weight loss of approximately 20 lbs. Patient reports last food intake was a few days ago. Patient notes the last time he used cocaine was last night. The patient denies, headache and dizziness. Denies fever, nausea, vomiting, diarrhea and constipation. Denies dysuria, frequency, urgency and hematuria. Allergies: NKA Past surgical history: None reported. Social history: Cocaine use, tobacco use 1PPD for 50 years. 09/29/18 20:02 Past History - Past Medical History Allergies/Adverse Reactions: Allergies Allergy/AdvReac Type Severity Reaction Status Date / Time No Known Allergies Allergy Verified 09/29/18 18:11 Home Medications: Ambulatory Orders Atorvastatin Ca [Lipitor] 40 mg PO HS tablet 06/23/17 Clopidogrel Bisulfate [Plavix -] 75 mg PO DAILY #30 tablet 09/21/17 Anemia: No Asthma: No Cancer: No Cardiac Disorders: No CVA: Yes (june 21 2017) COPD: No CHF: No Dementia: No Diabetes: No GI Disorders: No Disorders: No HTN: No Hypercholesterolemia: Yes Liver Disease: No Seizures: No Thyroid Disease: No - Surgical History Orthopedic Surgery: Yes (right leg, right shoulder) - Suicide/Smoking/Psychosocial Hx Smoking History: Current every day smoker Have you smoked in the past 12 months: Yes Number of Cigarettes Smoked Daily: 20 Information on smoking cessation initiated: Yes 'Breaking Loose' booklet given: 09/20/17 Hx Alcohol Use: Yes Drug/Substance Use Hx: Yes (OCCASIONAL MARIJUANA) Substance Use Type: Cocaine Hx Substance Use Treatment: Yes Review of Systems - Review of Systems Comments:: GENERAL/CONSTITUTIONAL: (+)RS weakness. No fever or chills. HEAD, EYES, EARS, NOSE AND THROAT: No change in vision. No ear pain or discharge. No sore throat. CARDIOVASCULAR: (+) Shortness of breath. No chest pain. RESPIRATORY: No cough, wheezing, or hemoptysis. GASTROINTESTINAL: No nausea, vomiting, diarrhea or constipation. GENITOURINARY: No dysuria, frequency, or change in urination. MUSCULOSKELETAL:(+)RUE pain and weakness. (+)RLE pain and weakness. (+)Neck pain. (+)Back pain. No joint or muscle swelling. SKIN: No rash NEUROLOGIC: No headache, vertigo, loss of consciousness, or change in strength/ sensation. ENDOCRINE: No increased thirst. No abnormal weight change. HEMATOLOGIC/LYMPHATIC: No anemia, easy bleeding, or history of blood clots. ALLERGIC/IMMUNOLOGIC: No hives or skin allergy. 09/29/18 20:03 *Physical Exam - Vital Signs Last Vital Signs Temp Pulse Resp BP Pulse Ox 97.6 F 74 17 150/91 98 09/29/18 19:10 09/29/18 19:10 09/29/18 19:10 09/29/18 19:10 09/29/18 19:10 - Physical Exam Comments: GENERAL:Thin, awake, alert, and fully oriented, in no acute distress HEAD: No signs of trauma EYES: PERRLA, EOMI, sclera anicteric, conjunctiva clear ENT: Auricles normal inspection, hearing grossly normal, nares patent, oropharynx clear without exudates. Moist mucosa NECK: Normal ROM, supple, no lymphadenopathy, JVD, or masses LUNGS: Breath sounds equal, clear to auscultation bilaterally. No wheezes, and no crackles HEART: Regular rate and rhythm, normal S1 and S2, no murmurs, rubs or gallops ABDOMEN: Soft, nontender, normoactive bowel sounds. No guarding, no rebound. No masses EXTREMITIES: (+)RLE stiffness. (+)RUE Stiffness. Normal range of motion, no edema. No clubbing or cyanosis. No cords, or tenderness NEUROLOGICAL: Cranial nerves II through XII grossly intact. Normal speech, normal gait SKIN: Warm, Dry, normal turgor, no rashes or lesions noted. 09/29/18 20:04 Heart Score/ECG Review - ECG Intrepretation Rhythm: Regular Rhythm Comment:: 09/29/18 19:47 same pattern as old - Florence Florence: Normal - P and IN Delta Wave(s) Present: No WPW: No - QRS Poor R Wave Progression: No Q Wave Present: No - ST and T Early Repolarization: No Non Specific ST-T Wave changes: No Flattened T Waves: No Prolonged Q-T Interval: No - ECG Impressions Normal ECG: Yes Non-specific ST Elevation: No Ischemic Changes: No Comment:: 09/29/18 19:47 one APC ED Treatment Course - LABORATORY CBC & Chemistry Diagram: 09/29/18 19:00 09/29/18 19:00 - ADDITIONAL ORDERS Additional order review: Laboratory Results 09/29/18 09/29/18 19:00 19:00 PT with INR 11.10 INR 0.94 Sodium 139 Potassium 4.0 Chloride 107 Carbon Dioxide 24 Anion Gap 8 BUN 10.4 Creatinine 0.9 Est GFR (CKD-EPI)AfAm 104.98 Est GFR (CKD-EPI)NonAf 90.58 Random Glucose 75 Calcium 9.6 Magnesium 2.1 Total Bilirubin 0.6 AST 24 ALT 24 Alkaline Phosphatase 80 Creatine Kinase 164 Troponin I < 0.02 Total Protein 7.3 Albumin 4.2 09/29/18 19:00 RBC 4.50 MCV 95.9 MCHC 34.8 RDW 12.7 MPV 8.9 Neutrophils % 70.3 Lymphocytes % 22.7 D Monocytes % 5.0 Eosinophils % 1.3 Basophils % 0.7 Medical Decision Making - Medical Decision Making 09/29/18 19:47 Pt appears well. He has generalized malaise. Appears well. Has been drinking ( only 3 beers) and used cocaine last night - not much; he admits that there's not much active ingreadient in the coke that he can afford. Pt hasn't been eating. He lives alone in a rental. I advised him to sign up for meals on wheels. Pt has a normal exam, normal labs, normal EKG and he will likely be discharged after a banana bag. 09/29/18 22:33 Pt comes with weakness and malaise and SOB and hypoxemia and OCPD exacerbation. Pulsox on RA is 89%. On 2L NC it comes up to 93%. Chronic lung disease. Pt has no home O2. Needs admission and eval/treatment for COPD exacerbation. 09/29/18 23:35 Pt's ABG on RA shows O2 at 89%; he requires admission for COPD exacerbation. Hospitalists are made aware. *DC/Admit/Observation/Transfer Diagnosis at time of Disposition: COPD exacerbation, Hypoxemia - Discharge Dispostion Condition at time of disposition: Guarded Decision to Admit order: Yes - Referrals - Patient Instructions - Post Discharge Activity
[2018-09-29] MEDS: methylPREDNISolone NA SUCC 40 MG/1 ML VIAL IVPUSH SCH (23:50)
[2018-09-30] MEDS: ACETAMINOPHEN 325 MG TABLET (FP) PO SCH ×3 (00:45→12:37)
[2018-09-30] MEDS ORDERED: ACETAMINOPHEN 325 MG TABLET (FP) ONE (02:54)
[2018-09-30 04:00] VITALS: BMI 17.3
[2018-09-30 09:23] LABS: BASO % 0.2 % (0-2.0); EOS % 0.2 % (0-4.5); HEMATOCRIT 42.8 % (35.4-49); HEMOGLOBIN 14.8 GM/dL (11.7-16.9); LYMPH % 14.1 % (8-40); MCH 33.3 pg (25.7-33.7); MCHC 34.7 g/dl (32.0-35.9); MEAN CELL VOLUME 95.9 fl (80-96); MEAN PLT VOLUME 9.2 fl (7.5-11.1); MONO % 1.1 % (3.8-10.2); NEUT % 84.4 % (42.8-82.8); PLATELET COUNT 191 K/MM3 (134-434); RBC 4.46 M/mm3 (4.00-5.60); RDW 12.9 % (11.9-15.9); WHITE BLOOD COUNT 4.5 K/mm3 (4.0-10.0)
[2018-09-30 09:49] LABS: BILIRUBIN,TOTAL 0.7 mg/dL (0.2-1); CREATININE 0.9 mg/dL (0.55-1.3); PHOSPHOROUS 3.5 mg/dL (2.5-4.9); POTASSIUM 4.5 mmol/L (3.5-5.1); TOT PROT 6.8 g/dl (6.4-8.2)
[2018-09-30] MEDS ORDERED: THIAMINE HCL 100 MG TABLET (FP) PO SCH (10:00)
[2018-09-30] MEDS ORDERED: CLOPIDOGREL BISULFATE 75 MG TABLET (FP) PO SCH (10:00)
[2018-09-30] MEDS ORDERED: FOLIC ACID 1 MG TABLET (FP) PO SCH (10:00)
[2018-09-30] MEDS: methylPREDNISolone NA SUCC 40 MG/1 ML VIAL IVPUSH SCH (10:14)
--- NOTE | 2018-09-30 11:11 | DS ---
Physical Examination Vital Signs: Vital Signs Temperature 36.5 C 09/30/18 09:13 Pulse Rate 70 09/30/18 09:13 Respiratory Rate 19 09/30/18 09:13 Blood Pressure 130/74 09/30/18 09:13 O2 Sat by Pulse Oximetry (%) 98 09/30/18 04:09 Constitutional: Yes: Well Nourished, No Distress, Calm Cardiovascular: Yes: Regular Rate and Rhythm. No: Gallop, Murmur, Rub Respiratory: Yes: Regular, CTA Bilaterally. No: Rales, Rhonchi, Wheezes Gastrointestinal: Yes: Normal Bowel Sounds, Soft. No: Distention, Tenderness Extremities: Yes: WNL Edema: No Labs: CBC, BMP 09/30/18 07:50 09/30/18 07:50 Discharge Summary Reason For Visit: ACUTE EXACERBATION OF CHRONIC OBSTRUCTIVE Hospital Course: Mr Morales is a 63 year old male who comes in with episode of shortness of breath. He is a habitual cocaine user and has been using recently. He presented yesterday with shortness of breath. He was admitted and given steroids and nebulizers. He was first on nasal cannula because of saturations in the low 90s , however this was discontinued and he is now saturating normally on room air. Very low suspicion this is new onset COPD with exacerbation, most likely this is bronchospasm. He is currently back to his normal state of health. He was counselled on stopping cocaine use. He is to follow up with Dr De León this week. Will defer pulmonary consult to Dr De León but he could benefit from outpatient PFTs. He is safe for discharge today, he does not need a steroid taper. 31 minutes spent in preparation of this discharge Condition: Stable - Instructions Diet, Activity, Other Instructions: resume previous diet and activity Referrals: Tami De León MD [Non Staff, Medical] - Baron Thrasher MD [Staff Physician] - Disposition: HOME - Home Medications Comprehensive Discharge Medication List: Ambulatory Orders Atorvastatin Ca [Lipitor] 40 mg PO HS tablet 06/23/17 Clopidogrel Bisulfate [Plavix -] 75 mg PO DAILY #30 tablet 09/21/17 Albuterol Sulfate Inhaler - [Ventolin HFA Inhaler -] 1 - 2 inh PO QID PRN #1 inhaler 09/30/18 Folic Acid - 1 mg PO DAILY #30 tablet 09/30/18 Thiamine HCl [Vitamin B1 -] 100 mg PO DAILY #30 tablet 09/30/18
--- NOTE | 2018-09-30 13:04 | EKG ---
Test Reason : Blood Pressure : / mmHG Vent. Rate : 070 BPM Atrial Rate : 070 BPM P-R Int : 134 ms QRS Dur : 080 ms QT Int : 404 ms P-R-T Axes : 085 -43 060 degrees QTc Int : 436 ms POOR DATA QUALITY, INTERPRETATION MAY BE ADVERSELY AFFECTED NORMAL SINUS RHYTHM POSSIBLE LEFT ATRIAL ENLARGEMENT LEFT AXIS DEVIATION CANNOT RULE OUT SEPTAL INFARCT , AGE UNDETERMINED ABNORMAL ECG POOR DATA QUALITY, INTERPRETATION MAY BE ADVERSELY AFFECTED Confirmed by NAYA CHUN MD ([id number]) on 09/30/2018 1:04:18 PM Referred By: Confirmed By:NAYA CHUN MD
--- NOTE | 2018-09-30 13:10 | EKG ---
Test Reason : Blood Pressure : / mmHG Vent. Rate : 081 BPM Atrial Rate : 081 BPM P-R Int : 126 ms QRS Dur : 072 ms QT Int : 392 ms P-R-T Axes : 080 -31 043 degrees QTc Int : 455 ms POOR DATA QUALITY, INTERPRETATION MAY BE ADVERSELY AFFECTED SINUS RHYTHM WITH OCCASIONAL PREMATURE VENTRICULAR COMPLEXES POSSIBLE LEFT ATRIAL ENLARGEMENT LEFT AXIS DEVIATION ABNORMAL ECG WHEN COMPARED WITH ECG OF 22-JUN-2017 11:22, PREMATURE VENTRICULAR COMPLEXES ARE NOW PRESENT Confirmed by NAYA CHUN MD ([id number]) on 09/30/2018 1:09:46 PM Referred By: Confirmed By:NAYA CHUN MD
[2018-09-30 14:03] VITALS: BP 114/64; PULSE 82; TEMP 98.8
[2018-09-30] MEDS ORDERED: ATORVASTATIN CA 40 MG TABLET (FP) PO SCH (22:00)
== END 2018-09-30 17:46 | disposition home or self-care (01) | DRG 202 ==
LOC: JER 18:01 → JERBED 23:47 → J5S 09-30 03:43
PROVIDERS: ADMIT Internal Medicine; ATTEND Internal Medicine
DX: J98.01 Acute bronchospasm (principal); I69.351 Hemiplegia and hemiparesis following cerebral infarction affecting right dominant side; E78.5 Hyperlipidemia, unspecified; F14.10 Cocaine abuse, uncomplicated; I10 Essential (primary) hypertension; F10.10 Alcohol abuse, uncomplicated
CPT/HCPCS: 36415; 36600; 71045-TC-FY; 80053; 82375; 82550; 82553; 82803; 82962; 83050; 83735; 84100; 84484; 85025; 85610; 93005; 93010; 99285-25; J7030

== ENCOUNTER 2018-10-11 14:36 | Inpatient (IN) | payer OTHER ==
--- NOTE | 2018-10-11 14:47 | PDOC ---
Rapid Medical Evaluation Time Seen by Provider: 10/11/18 14:41 Medical Evaluation: Allergies Allergy/AdvReac Type Severity Reaction Status Date / Time No Known Allergies Allergy Verified 10/11/18 14:39 10/11/18 14:41 Pt is a 63 y/o M with PMH of stroke with R sided deficits, presents to the ER with weakness and inability to ambulate. Pt states he is usually able to walk with a cane, but now he feels too weak to walk around the house. Reports 18lb weight loss, with loss of appetite Smokes a pack a day x50 years. Pt states the mild facial droop is residual from the stroke in June 2017. Admits to some tarry stools. Exam: Gait not observed, NAD Orders: labs, EKG, CXR Pt to proceed to the ER for further evaluation. Discharge Disposition - Diagnosis Weakness - Referrals - Patient Instructions - Post Discharge Activity
--- NOTE | 2018-10-11 15:02 | PDOC ---
History of Present Illness - General Chief Complaint: Weakness Stated Complaint: WEAKNESS Time Seen by Provider: 10/11/18 14:41 History Source: Patient, Old Records - History of Present Illness Initial Comments: 10/11/18 17:58 63yo M hx CVA 06/25 w/residual R-sided deficits, COPD, HLD, tobacco use, and cocaine use c/o chronic R-sided weakness, acutely worsening x1wk. Pt has experienced gradually worsening R-sided weakness since CVA in 06/25 that he states has worsened so much in the past week that he can't ambulate and can't leave his house to get food. Pt was here a couple weeks ago for the same complaint. Pt states he is supposed to get a home nurse in November but it's just too far away and he's too weak to take care of himself. He usually walks with a cane but now too weak to walk around even with rolling walker. Endorses 18lb weight loss in 1.5yrs, fatigue, anorexia, cold sweats, night sweats, 50 pack- year smoking hx, SOB (R>L), and pain in his right anterior shoulder. Denies falls, new neurologic symptoms, CP, abdominal pain, blood in urine or stool, F/C , dysuria. Per records, pt had very similar complaints and was admitted for 1 night on 09/29/18. Pt states he has been checked up for all the cancers within the last year, including lung cancer. Past History - Past Medical History Allergies/Adverse Reactions: Allergies Allergy/AdvReac Type Severity Reaction Status Date / Time No Known Allergies Allergy Verified 10/11/18 14:39 Home Medications: Ambulatory Orders Atorvastatin Ca [Lipitor] 40 mg PO HS tablet 06/23/17 Clopidogrel Bisulfate [Plavix -] 75 mg PO DAILY #30 tablet 09/21/17 Albuterol Sulfate Inhaler - [Ventolin HFA Inhaler -] 1 - 2 inh PO QID PRN #1 inhaler 09/30/18 Folic Acid - 1 mg PO DAILY #30 tablet 09/30/18 Thiamine HCl [Vitamin B1 -] 100 mg PO DAILY #30 tablet 09/30/18 Anemia: No Asthma: No Cancer: No Cardiac Disorders: No CVA: Yes (june 21 2017) COPD: No CHF: No Dementia: No Diabetes: No GI Disorders: No Disorders: No HTN: No Hypercholesterolemia: Yes Liver Disease: No Seizures: No Thyroid Disease: No - Surgical History Orthopedic Surgery: Yes (right leg, right shoulder) - Immunization History Immunization Up to Date: No - Suicide/Smoking/Psychosocial Hx Smoking History: Current every day smoker Have you smoked in the past 12 months: Yes Number of Cigarettes Smoked Daily: 20 Information on smoking cessation initiated: No 'Breaking Loose' booklet given: 09/20/17 Hx Alcohol Use: Yes Drug/Substance Use Hx: Yes Substance Use Type: Cocaine Hx Substance Use Treatment: Yes Review of Systems - Review of Systems Comments:: 10/11/18 15:52 Constitutional: Positive for fatigue, anorexia, weight loss of 18lbs, cold sweats, night sweats. Negative for chills and fever. HENT: Negative for sore throat. Positive for R-sided facial droop (chronic). Eyes: Negative for visual disturbance. Respiratory: Positive for SOB, R>L. Negative for cough and wheezing. Cardiovascular: Negative for chest pain, palpitations and leg swelling. Gastrointestinal: Negative for abdominal pain, blood in stool, constipation, diarrhea, nausea and vomiting. Genitourinary: Negative for dysuria, flank pain and hematuria. Musculoskeletal: Negative for back pain and neck pain. Skin: Negative for rash. Neurological: Positive for worsening chronic R-sided weakness and difficulty walking. Negative for light-headedness, dizziness, syncope, numbness and headaches. Psychiatric/Behavioral: Negative for behavioral problems and confusion. *Physical Exam - Vital Signs Last Vital Signs Temp Pulse Resp BP Pulse Ox 104 H 18 129/79 97 10/11/18 14:40 10/11/18 14:40 10/11/18 14:40 10/11/18 14:40 - Physical Exam Comments: 10/11/18 15:49 Gen: Alert, NAD, comfortable-appearing, obvious R-sided weakness, smells of smoke HEENT: PERRL, EOMI, MMM, R-sided facial droop CV: Regular rate and rhythm. No murmurs, rubs, or gallops. PULM: No resp distress. CTAB, no wheezes, rales, or rhonchi. ABD: soft, NT/ND, no rebound tenderness or guarding, no CVA tenderness. BACK: No TTP of c/t/l-spine. No step-offs or deformities. MSK: 4/5 strength RUE and RLE, 5/5 strength LUE and LLE. 2+ pulses throughout. BACK: no TTP of c/t/l-spine. NEURO: AAOx3. PERRLA. R-sided facial droop (states chronic). 4/5 strength RUE and RLE, 5/5 strength LUE and LLE. Sensation to light touch intact in all extremities. Rapid alternating movements intact. There is no dysmetria on finger -to-nose and [id number]. There are no abnormal or extraneous movements. Romberg is absent. Gait not assessed. PSYCH: Normal mood. SKIN: No rashes. Heart Score/ECG Review - ECG Impressions Comment:: 10/11/18 15:48 NSR, 69bpm, no [id number] ED Treatment Course - LABORATORY CBC & Chemistry Diagram: 10/11/18 15:05 10/11/18 15:05 Medical Decision Making - Medical Decision Making 10/11/18 18:05 63yo M hx CVA 06/25 w/residual R-sided deficits, COPD, HLD, tobacco use, and cocaine use c/o chronic R-sided weakness, acutely worsening x1wk, making him unable to walk and feed self. No CVA workup indicated due to lack of new neurologic sx. Generalized weakness could be due to infection, anemia, cardiac etiology, thyroid etiology, cancer, or metabolic/electrolyte abnormality. Workup all potential causes with labs, EKG and CXR. Due to malnutrition, give 1L IVF and food. Pt states he's supposed to have a home nurse in November, but currently can't take care of self. - EKG - CBC, CMP, Cardiac profile, Coags, UA/UC, TSH, Mg - CXR - 1L IVF - Dispo: likely admit 2/2 inability to walk and care for self pending workup. Would consult social work professor and PT/OT but unavailable today. 10/11/18 18:16 Pt eating dinner. No concerning findings on CBC, coags, BNP, CMP, trop, CK, Mg, TSH. No acute pathology on my read of CXR. Pending lactate and UA, admit. *DC/Admit/Observation/Transfer Diagnosis at time of Disposition: Weakness - Referrals - Patient Instructions - Post Discharge Activity
[2018-10-11 15:25] LABS: BASO % 0.4 % (0-2.0); EOS % 0.9 % (0-4.5); HEMATOCRIT 47.1 % (35.4-49); HEMOGLOBIN 16.1 GM/dL (11.7-16.9); LYMPH % 23.2 % (8-40); MCH 32.8 pg (25.7-33.7); MCHC 34.2 g/dl (32.0-35.9); MEAN CELL VOLUME 95.9 fl (80-96); MEAN PLT VOLUME 8.7 fl (7.5-11.1); MONO % 5.2 % (3.8-10.2); NEUT % 70.3 % (42.8-82.8); PLATELET COUNT 231 K/MM3 (134-434); RBC 4.91 M/mm3 (4.00-5.60); RDW 13.2 % (11.9-15.9); WHITE BLOOD COUNT 8.7 K/mm3 (4.0-10.0)
[2018-10-11 15:29] LABS: INR 1.01 (0.83-1.09); PROTHROMBIN TIME (PATIENT) 11.9 SEC (9.7-13.0)
[2018-10-11] MEDS ORDERED: SODIUM CHLORIDE 0.9% 500 ML INFUS.BAG IV ONE (15:42)
[2018-10-11 15:48] LABS: ALBUMIN 4.5 g/dl (3.4-5.0); ALK PHOS 81 U/L (45-117); ANION GAP 9 MMOL/L (8-16); BILIRUBIN,TOTAL 0.6 mg/dL (0.2-1); BLOOD UREA NITROGEN 18.3 mg/dL (7-18); CALCIUM 9.7 mg/dL (8.5-10.1); CHLORIDE 108 mmol/L (98-107); CO2 23 mmol/L (21-32); GLUCOSE,RANDOM 92 mg/dL (74-106); POTASSIUM 4.1 mmol/L (3.5-5.1); SGOT/AST 21 U/L (15-37); SGPT/ALT 24 U/L (13-61); SODIUM 140 mmol/L (136-145); TOT PROT 7.6 g/dl (6.4-8.2)
[2018-10-11 16:19] LABS: MAGNESIUM 2.3 mg/dL (1.8-2.4)
[2018-10-11 17:09] LABS: N-TERMINAL BNP 37.5 pg/ml (5-125)
--- NOTE | 2018-10-11 18:29 | PDOC ---
Documentation entered by Emilia Conde SCRIBE, acting as scribe for Daisy Carr MD. Daisy Carr MD: This documentation has been prepared by the Elton figueredo Nirvannie, SCRIBE, under my direction and personally reviewed by me in its entirety. I confirm that the documentation accurately reflects all work, treatment, procedures, and medical decision making performed by me. Attending Attestation - Resident Resident Name: RonnellbushraChen - ED Attending Attestation I have performed the following: I have examined & evaluated the patient, The case was reviewed & discussed with the resident, I agree w/resident's findings & plan - HPI HPI: 10/11/18 18:00 The patient is a 63 year old male, with a significant past medical history of HLD, cocaine use, tobacco use, and CVA (with chronic right sided weakness), who presents to the emergency department with, weakness. As per patient, he has been becoming increasingly dependent on his walker and over the past two days has not been able to leave his home in order to get food, prompting his arrival to the ED. Patient endorses his home health aid will be assigned and starting . He denies any recent chest pain or shortness of breath. Allergies: NKDA Social History: Cocaine use, tobacco use 1PPD for 50 years. - Physicial Exam PE: 10/11/18 18:15 Gen: Alert, NAD, comfortable-appearing, obvious R-sided weakness HEENT: PERRL, EOMI, MMM, R-sided facial droop CV: Regular rate and rhythm PULM: No resp distress. CTAB, no wheezes, rales, or rhonchi. ABD: soft, NT/ND, no rebound tenderness or guarding MSK: 4/5 strength RUE and RLE, 5/5 strength LUE and LLE. NEURO: AAOx3. PERRLA. R-sided facial droop (states chronic). 4/5 strength RUE and RLE, 5/5 strength LUE and LLE. S SKIN: No rashes. - Medical Decision Making 10/11/18 16:10 EKG- NSR rate of 69bpm, axis nml, intervals nml, no st elevation or depression , t waves upright 10/11/18 18:19 Pt h/o CVA 06/25 s/p discharge to fpc s/p Left CEA 09/25 due to Left carotid stenosis returns to the ER reporting that he is weak and unable to care for himself He has a visiting nurse coming but they will not start until November Pt is concerned because he is not sure he can make it until that time The patient has a walker and has noted increased reliance on the walker for ambulating Unclear if patient will benefit from short term rehab or fpc 10/11/18 18:25 10/11/18 18:27
--- NOTE | 2018-10-11 20:33 | PDOC ---
*Physical Exam - Vital Signs Last Vital Signs Temp Pulse Resp BP Pulse Ox 88 17 126/72 99 10/11/18 18:06 10/11/18 18:06 10/11/18 18:06 10/11/18 18:06 ED Treatment Course - LABORATORY CBC & Chemistry Diagram: 10/11/18 15:05 10/11/18 15:05 - ADDITIONAL ORDERS Additional order review: Laboratory Results 10/11/18 10/11/18 10/11/18 17:22 15:05 15:05 PT with INR 11.90 INR 1.01 Sodium 140 Potassium 4.1 Chloride 108 H Carbon Dioxide 23 Anion Gap 9 BUN 18.3 H Creatinine 1.0 Est GFR (CKD-EPI)AfAm 92.42 Est GFR (CKD-EPI)NonAf 79.75 Random Glucose 92 Lactic Acid 1.0 Calcium 9.7 Magnesium 2.3 Total Bilirubin 0.6 AST 21 ALT 24 Alkaline Phosphatase 81 Creatine Kinase 112 Troponin I < 0.02 B-Natriuretic Peptide 37.5 Total Protein 7.6 Albumin 4.5 TSH 1.24 10/11/18 15:05 RBC 4.91 MCV 95.9 MCHC 34.2 RDW 13.2 MPV 8.7 Neutrophils % 70.3 Lymphocytes % 23.2 D Monocytes % 5.2 D Eosinophils % 0.9 D Basophils % 0.4 - Medications Given in the ED: ED Medications Discontinued Medications Generic Name Dose Route Start Last Admin Trade Name Freq PRN Reason Stop Dose Admin Sodium Chloride 1,000 ml 10/11/18 15:42 10/11/18 16:29 Normal Saline - IV 10/11/18 15:43 1,000 ml ONCE ONE Administration Medical Decision Making - Medical Decision Making 10/11/18 20:32 Patient admitted by previous team for inability to walk and unsafe discharge. *DC/Admit/Observation/Transfer Diagnosis at time of Disposition: Weakness, Inability to walk - Discharge Dispostion Decision to Admit order: Yes - Referrals - Patient Instructions - Post Discharge Activity
[2018-10-11] MEDS ORDERED: ALBUTEROL SO4 8 GM HFA INHALER IH PRN (20:37)
[2018-10-11] MEDS: SODIUM CHLORIDE 1,000 ML IV SCH (20:57)
--- NOTE | 2018-10-11 21:11 | HP ---
CHIEF COMPLAINT: weakness, failure to thrive PCP: Sarthak HISTORY OF PRESENT ILLNESS: Mr. Morales is a 63yo male with history of CVA with residual deficits, carotid stenosis s/p , HLD, tobacco and cocaine abuse, and COPD who presents to ED with increasing weakness x 2 weeks. 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 He uses a walker at home. He also reports loss of appetite and weight loss of 20lbs "recently." He has had cold sweats and denies fever, nausea, or vomiting. No chest pain or dizziness. He reports several symptoms that have been consistent since the CVA: a frontal "static" headache, generalized pain, numbness, and tingling of right side of body and extremities, increased salivation, and food "tastes bad." He has a f/u appt with vascular in November. ER course was notable for: (1) 1L normal saline PAST MEDICAL HISTORY: 1. 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 carotid stenosis s/p L 09/25 3. tobacco abuse 4. cocaine abuse 5. COPD PAST SURGICAL HISTORY: R leg after injury in Social History: Smokinppd x 50 years Alcohol: reported former heavy drinker, now "may drink a 6 pack in a month" Drugs: cocaine last used 3 days ago, occasional marijuana, former LSD user Lives alone, does communicate with friends, on medicare/medicaid b/c disability in 90s Family History: adopted Allergies No Known Allergies Allergy (Verified 10/11/18 14:39) HOME MEDICATIONS: Home Medications Medication Instructions Recorded Atorvastatin Ca [Lipitor] 40 mg PO HS tablet 06/23/17 Clopidogrel Bisulfate [Plavix -] 75 mg PO DAILY #30 tablet 09/21/17 Albuterol Sulfate Inhaler - 1 - 2 inh PO QID PRN #1 inhaler 09/30/18 [Ventolin HFA Inhaler -] Folic Acid - 1 mg PO DAILY #30 tablet 09/30/18 Thiamine HCl [Vitamin B1 -] 100 mg PO DAILY #30 tablet 09/30/18 REVIEW OF SYSTEMS CONSTITUTIONAL: Present: diphoresis, generalized weakness, loss of appetite, weight loss Absent: fever HEENT: Present: visual changes Absent: rhinorrhea, nasal congestion, throat pain, difficulty swallowing CARDIOVASCULAR: Absent: chest pain, syncope, palpitations, irregular heart rate, lightheadedness , peripheral edema RESPIRATORY: Present: Shortness of breath, dyspnea on exertion, wheezing Absent: cough, hemoptysis GASTROINTESTINAL: Absent: abdominal pain, abdominal distension, nausea, vomiting, diarrhea, constipation, melena, hematochezia GENITOURINARY: Absent: dysuria MUSCULOSKELETAL: Present: myalgia, arthralgia SKIN: Absent: rash, itching, pallor HEMATOLOGIC/IMMUNOLOGIC: Absent: easy bleeding, easy bruising, lymphadenopathy, frequent infections ENDOCRINE: Present: weight loss NEUROLOGIC: Present: headache, generalized weakness and parasthesias, unsteady gait Absent: focal weakness or paresthesias, dizziness, seizure, mental status changes, bladder or bowel incontinence PSYCHIATRIC: Absent: anxiety, depression, suicidal or homicidal ideation, hallucinations. PHYSICAL EXAMINATION Vital Signs - 24 hr 10/11/18 10/11/18 14:40 18:06 Pulse Rate 104 H Pulse Rate [ 88 Apical] Respiratory 18 17 Rate Blood Pressure 129/79 Blood Pressure 126/72 [Left Arm] O2 Sat by Pulse 97 99 Oximetry (%) GENERAL: Awake, alert, and fully oriented, in no acute distress. Thin. HEAD: Normal with no signs of trauma. EYES: Pupils equal, round and reactive to light, extraocular movements intact, sclera anicteric, conjunctiva clear. No lid lag. EARS, NOSE, THROAT: Ears normal, nares patent, left erythematous mucous membrane , oropharynx clear without exudates. Moist mucous membranes. NECK: Normal range of motion, no JVD, or masses. LUNGS: Breath sounds equal, gurgling upper lung davidson. No wheezes, and no crackles. No accessory muscle use. HEART: Regular rate and rhythm, normal S1 and S2 without murmur, rub or gallop. ABDOMEN: Nonsoft, nontender, not distended, normoactive bowel sounds, no guarding, no rebound, no masses. No hepatomegaly or splenomegaly. MUSCULOSKELETAL: Limited ROM of R extremities, able to walk with assistance UPPER EXTREMITIES: strength R 4/5, L 5/5, warm, well-perfused. No cyanosis. No clubbing. No peripheral edema. LOWER EXTREMITIES: strength R 3/5, L 5/5, warm, well-perfused. No peripheral edema. NEUROLOGICAL: R facial droop at rest, symmetrical smile, decreased sensation right side CN V3, extraocular movements intact, accessory muscle strength 4/5 R and 5/5 L PSYCHIATRIC: Cooperative. Good eye contact. Appropriate mood and affect. SKIN: Warm, dry, normal turgor, no rashes or lesions noted, normal capillary refill. Laboratory Results - last 24 hr 10/11/18 10/11/18 10/11/18 15:05 15:05 15:05 WBC 8.7 RBC 4.91 Hgb 16.1 Hct 47.1 MCV 95.9 MCH 32.8 MCHC 34.2 RDW 13.2 Plt Count 231 D MPV 8.7 Absolute Neuts (auto) 6.1 Neutrophils % 70.3 Lymphocytes % 23.2 D Monocytes % 5.2 D Eosinophils % 0.9 D Basophils % 0.4 Nucleated RBC % 0 PT with INR 11.90 INR 1.01 Sodium 140 Potassium 4.1 Chloride 108 H Carbon Dioxide 23 Anion Gap 9 BUN 18.3 H Creatinine 1.0 Est GFR (CKD-EPI)AfAm 92.42 Est GFR (CKD-EPI)NonAf 79.75 Random Glucose 92 Lactic Acid Calcium 9.7 Magnesium 2.3 Total Bilirubin 0.6 AST 21 ALT 24 Alkaline Phosphatase 81 Creatine Kinase 112 Troponin I < 0.02 B-Natriuretic Peptide 37.5 Total Protein 7.6 Albumin 4.5 TSH 1.24 10/11/18 17:22 WBC RBC Hgb Hct MCV MCH MCHC RDW Plt Count MPV Absolute Neuts (auto) Neutrophils % Lymphocytes % Monocytes % Eosinophils % Basophils % Nucleated RBC % PT with INR INR Sodium Potassium Chloride Carbon Dioxide Anion Gap BUN Creatinine Est GFR (CKD-EPI)AfAm Est GFR (CKD-EPI)NonAf Random Glucose Lactic Acid 1.0 Calcium Magnesium Total Bilirubin AST ALT Alkaline Phosphatase Creatine Kinase Troponin I B-Natriuretic Peptide Total Protein Albumin TSH ASSESSMENT/PLAN: Patient is 63 yo male with history of CVA and drug abuse who presents with increasing weakness x 2 weeks. 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 He reports increased weakness in last 2 weeks, more pronounced on right side. His smile is symmetrical. He also has history of tobacco and cocaine use which can cause vasoconstriction. Also has reported HLD s/p L September 2017. Pt is hemodynamically stable and afebrile. CT head is ordered to assess ischemic changes and will be compared to any previous imaging. Will continue Plavix and Lipitor. It is noted patient is not currently on ASA. -failure to thrive Patient reports increased weakness which has caused him difficulty in moving around and being able to prepare food. That coupled with decrease in appetite has caused decreased food intake. He reports 20lb weight loss recently. He is able to ambulate with some assistance to short distances. Has walker at home he uses. He lives alone but does have contact with friends. He was seen here on for same problem. He is currently setup for home nursing beginning in November. Current EKG shows PACs but is otherwise insignificant for electrolyte abnormalities. Will give him diet and IV normal saline. There are no current electrolyte abnormalities. Will continue home thiamine and folic acid, and test B12, folic acid, and TSH. PT and social work are consulted. -COPD Patient has significant smoking history. He uses albuterol PRN at home. He endorses some SOB and wheezing which is not worsening. He was SOB after walk on PE. CXR is consistent with COPD, including hyperinflated lungs bilaterally and there are multiple small nodules that should be followed up out patient. Waiting on radiologist report. CXR in June 2017 was negative per report. Duo-neb PRN. FEN Normal saline at 50ml/hr monitor electrolytes cardiac diet Problem List - Problem (1) Weakness Code(s): R53.1 - WEAKNESS Visit type - Emergency Visit Emergency Visit: Yes ED Registration Date: 10/11/18 Care time: The patient presented to the Emergency Department on the above date and was hospitalized for further evaluation of their emergent condition. - New Patient This patient is new to me today: Yes Date on this admission: 10/11/18 - Critical Care Critical Care patient: No
--- NOTE | 2018-10-11 22:06 | PN ---
Teaching Attending Note Name of Resident: Anabelle Handley ATTENDING PHYSICIAN STATEMENT I saw and evaluated the patient. I reviewed the resident's note and discussed the case with the resident. I agree with the resident's findings and plan as documented. SUBJECTIVE: Patient is a 63 year old man with PMH of CVA 06/2017 with residual R-sided deficits, COPD, HLD, tobacco use, and cocaine use complaining of chronic R- sided weakness, acutely worsening for 1 week. Pt has experienced gradually worsening R-sided weakness since CVA in 06/25 that he states has worsened so much in the past week that he can't ambulate and can't leave his house to get food. Pt was here a couple weeks ago for the same complaint. Pt states he is supposed to get a home nurse in November but it's just too far away and he's too weak to take care of himself. He usually walks with a cane but now too weak to walk around even with rolling walker. Endorses 18lb weight loss in 1.5yrs, fatigue, anorexia, cold sweats, night sweats, 50 pack-year smoking hx, SOB (R>L) , and pain in his right anterior shoulder. Denies falls, new neurologic symptoms , CP, abdominal pain, blood in urine or stool, F/C, dysuria. Per records, pt had very similar complaints and was admitted for 1 night on 09/29/18. Pt states he has been checked up for all the cancers within the last year, including lung cancer. OBJECTIVE: Alert and frail Vital Signs Period Temp Pulse Resp BP Sys/White Pulse Ox Last 24 Hr 88-104 17-18 126-129/72-79 97-99 HEENT: No Jaundice, eye redness or discharge, PERRLA, EOMI. Right facial droop. Normocephalic, atraumatic. External ears are normal and hearing is grossly intact. No nasal discharge. Neck: Supple, nontender. No palpable adenopathy or thyromegaly. No JVD Chest: Good effort. Clear to auscultation and percussion. Heart: Regular. No S3, rub or murmur Abdomen: Not distended, soft, nontender and no HSM. No rebound or guarding. Normal bowel sounds. Ext: Peripheral pulses intact. No leg edema. Skin: Warm and dry. No petechiae, rash or ecchymosis. Neuro: Alert. Oriented x3. CN 2-12 grossly intact. Sensation grossly intact in all four extremities; right hemiparesis. Psych: Appropriate mood and affect. Good insight. Current Medications Generic Name Dose Route Start Last Admin Trade Name Freq PRN Reason Stop Dose Admin Albuterol Sulfate 2 puff 10/11/18 20:37 Ventolin Hfa Inhaler - IH Q6H PRN SHORT OF BREATH/WHEEZING Atorvastatin Calcium 40 mg 10/11/18 22:00 Lipitor - PO HS MICHAEL Clopidogrel Bisulfate 75 mg 10/12/18 10:00 Plavix - PO DAILY MICHAEL Folic Acid 1 mg 10/12/18 10:00 Folic Acid - PO DAILY MICHAEL Sodium Chloride 1,000 mls @ 50 mls/hr 10/11/18 20:30 10/11/18 20:57 Normal Saline - IV 10/12/18 20:35 50 mls/hr ASDIR MICHAEL Administration Thiamine HCl 100 mg 10/12/18 10:00 Vitamin B1 - PO DAILY [facility] Home Medications Medication Instructions Recorded Atorvastatin Ca [Lipitor] 40 mg PO HS tablet 06/23/17 Clopidogrel Bisulfate [Plavix -] 75 mg PO DAILY #30 tablet 09/21/17 Albuterol Sulfate Inhaler - 1 - 2 inh PO QID PRN #1 inhaler 09/30/18 [Ventolin HFA Inhaler -] Folic Acid - 1 mg PO DAILY #30 tablet 09/30/18 Thiamine HCl [Vitamin B1 -] 100 mg PO DAILY #30 tablet 09/30/18 Abnormal Lab Results 10/11/18 15:05 Chloride 108 H BUN 18.3 H ASSESSMENT AND PLAN: 1. Failure to thrive - No obvious cause fro his global debility, weight loss and poor intake. Head CT, urine toxicology and EKG pending. No acute abnormality on CXR. If head CT is negative, will consult neurology and get brain MRI. Blood sent for folate, B12 and TSH. 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 Implement strict fall precautions. 2. Tobacco Use Counseled on risks associated with tobacco use. We will provide patient all the necessary assistance to facilitate smoking cessation and prescribe Nicotine patch. 3. Drug abuse - Counseled patient about abstaining from illicit drug use. Will consult client specialist and refer to drug detox upon discharge. 4. DVT prophylaxis - Lovenox 40 mg SQ q 24 hours. 5. Advance directives - Full code
[2018-10-11] MEDS ORDERED: ATORVASTATIN CA 40 MG TABLET (FP) ONE (22:27)
[2018-10-11] MEDS: ATORVASTATIN CA 40 MG TABLET (FP) PO SCH (22:30)
[2018-10-11 22:42] LABS: URINE APPEARANCE CLOUDY; URINE BILIRUBIN NEGATIVE (NEGATIVE); URINE COLOR YELLOW; URINE GLUCOSE (UA) NEGATIVE (NEGATIVE); URINE KETONE 1+ (NEGATIVE); URINE LEUK ESTERASE NEGATIVE (NEGATIVE); URINE NITRITE NEGATIVE (NEGATIVE); URINE PROTEIN NEGATIVE (NEGATIVE)
[2018-10-11] MEDS ORDERED: ALBUTEROL SO4 2.5/IPRATROPIUM 0.5 INH SOL 3 ML VIAL.NEB. NEB PRN (23:51)
[2018-10-12 08:13] LABS: HEMATOCRIT 41.3 % (35.4-49); HEMOGLOBIN 14.1 GM/dL (11.7-16.9); MCH 33.3 pg (25.7-33.7); MCHC 34.2 g/dl (32.0-35.9); MEAN CELL VOLUME 97.4 fl (80-96); PLATELET COUNT 202 K/MM3 (134-434); RBC 4.24 M/mm3 (4.00-5.60); RDW 13.2 % (11.9-15.9); WHITE BLOOD COUNT 8.2 K/mm3 (4.0-10.0)
--- NOTE | 2018-10-12 09:10 | CONSULT ---
Consult - text type - Consultation Consultation Note: Neurology CHIEF COMPLAINT: weakness, failure to thrive PCP: Sarthak HISTORY OF PRESENT ILLNESS: 63yo male with history of CVA with residual deficits, carotid stenosis s/p , HLD, tobacco and cocaine abuse, and COPD who presented to ED reportedly with increasing weakness x 2 weeks. 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 He uses a walker at home. He also reported loss of appetite and weight loss of 20lbs "recently." He has had cold sweats and denies fever, nausea, or vomiting. No chest pain or dizziness. He was admitted for further evaluation and appears deconditioned with generalized weakness. His right sided motor deficits seem minimal but his overall appearance is more concerning with weight loss and limited effort. Ct head was completed and without acute changes, L MDA and SOYFREEZE OPERATOR territory infarcts noted. Will check MRI to confirm no infarcts but would recommend generalized approach and medical optimization. PAST MEDICAL HISTORY: 1. 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 carotid stenosis s/p L 09/25 3. tobacco abuse 4. cocaine abuse 5. COPD PAST SURGICAL HISTORY: R leg after injury in Social History: Smokinppd x 50 years Alcohol: reported former heavy drinker, now "may drink a 6 pack in a month" Drugs: cocaine last used 3 days ago, occasional marijuana, former LSD user Lives alone, does communicate with friends, on medicare/medicaid b/c disability in 90s Family History: HTN Allergies No Known Allergies Allergy (Verified 10/11/18 14:39) HOME MEDICATIONS: Home Medications Medication Instructions Recorded Atorvastatin Ca [Lipitor] 40 mg PO HS tablet 06/23/17 Clopidogrel Bisulfate [Plavix -] 75 mg PO DAILY #30 tablet 09/21/17 Albuterol Sulfate Inhaler - 1 - 2 inh PO QID PRN #1 inhaler 09/30/18 [Ventolin HFA Inhaler -] Folic Acid - 1 mg PO DAILY #30 tablet 09/30/18 Thiamine HCl [Vitamin B1 -] 100 mg PO DAILY #30 tablet 09/30/18 REVIEW OF SYSTEMS CONSTITUTIONAL: Present: diphoresis, generalized weakness, loss of appetite, weight loss Absent: fever HEENT: Present: visual changes Absent: rhinorrhea, nasal congestion, throat pain, difficulty swallowing CARDIOVASCULAR: Absent: chest pain, syncope, palpitations, irregular heart rate, lightheadedness , peripheral edema RESPIRATORY: Present: Shortness of breath, dyspnea on exertion, wheezing Absent: cough, hemoptysis GASTROINTESTINAL: Absent: abdominal pain, abdominal distension, nausea, vomiting, diarrhea, constipation, melena, hematochezia GENITOURINARY: Absent: dysuria MUSCULOSKELETAL: Present: myalgia, arthralgia SKIN: Absent: rash, itching, pallor HEMATOLOGIC/IMMUNOLOGIC: Absent: easy bleeding, easy bruising, lymphadenopathy, frequent infections ENDOCRINE: Present: weight loss NEUROLOGIC: Present: headache, generalized weakness and parasthesias, unsteady gait Absent: focal weakness or paresthesias, dizziness, seizure, mental status changes, bladder or bowel incontinence PSYCHIATRIC: Absent: anxiety, depression, suicidal or homicidal ideation, hallucinations. PHYSICAL EXAMINATION Vital Signs Period Temp Pulse Resp BP Sys/White Pulse Ox Last 24 Hr 97.6 F-98.5 F 67-104 17-20 111-135/62-79 95-99 GENERAL: Awake, alert, and fully oriented, in no acute distress. Thin. HEAD: Normal with no signs of trauma. EYES: Pupils equal, round and reactive to light, extraocular movements intact, sclera anicteric, conjunctiva clear. No lid lag. EARS, NOSE, THROAT: Ears normal, nares patent, left erythematous mucous membrane , oropharynx clear without exudates. Moist mucous membranes. NECK: Normal range of motion, no JVD, or masses. LUNGS: Breath sounds equal, gurgling upper lung davidson. No wheezes, and no crackles. No accessory muscle use. HEART: Regular rate and rhythm, normal S1 and S2 without murmur, rub or gallop. ABDOMEN: Nonsoft, nontender, not distended, normoactive bowel sounds, no guarding, no rebound, no masses. No hepatomegaly or splenomegaly. MUSCULOSKELETAL: Limited ROM of R extremities, able to walk with assistance UPPER EXTREMITIES: strength R 4/5, L 5/5, warm, well-perfused. No cyanosis. No clubbing. No peripheral edema. LOWER EXTREMITIES: strength R 3/5, L 5/5, warm, well-perfused. No peripheral edema. NEUROLOGICAL: R facial droop at rest, symmetrical smile, RUE and RLE 5-/5, sensory intact to LT, reflexes 2+, gait deferred PSYCHIATRIC: Cooperative. Good eye contact. Appropriate mood and affect. SKIN: Warm, dry, normal turgor, no rashes or lesions noted, normal capillary refill. Laboratory Results - last 24 hr 10/11/18 10/11/18 10/11/18 15:05 15:05 15:05 WBC 8.7 RBC 4.91 Hgb 16.1 Hct 47.1 MCV 95.9 MCH 32.8 MCHC 34.2 RDW 13.2 Plt Count 231 D MPV 8.7 Absolute Neuts (auto) 6.1 Neutrophils % 70.3 Lymphocytes % 23.2 D Monocytes % 5.2 D Eosinophils % 0.9 D Basophils % 0.4 Nucleated RBC % 0 PT with INR 11.90 INR 1.01 Sodium 140 Potassium 4.1 Chloride 108 H Carbon Dioxide 23 Anion Gap 9 BUN 18.3 H Creatinine 1.0 Est GFR (CKD-EPI)AfAm 92.42 Est GFR (CKD-EPI)NonAf 79.75 Random Glucose 92 Lactic Acid Calcium 9.7 Magnesium 2.3 Total Bilirubin 0.6 AST 21 ALT 24 Alkaline Phosphatase 81 Creatine Kinase 112 Troponin I < 0.02 B-Natriuretic Peptide 37.5 Total Protein 7.6 Albumin 4.5 TSH 1.24 10/11/18 17:22 WBC RBC Hgb Hct MCV MCH MCHC RDW Plt Count MPV Absolute Neuts (auto) Neutrophils % Lymphocytes % Monocytes % Eosinophils % Basophils % Nucleated RBC % PT with INR INR Sodium Potassium Chloride Carbon Dioxide Anion Gap BUN Creatinine Est GFR (CKD-EPI)AfAm Est GFR (CKD-EPI)NonAf Random Glucose Lactic Acid 1.0 Calcium Magnesium Total Bilirubin AST ALT Alkaline Phosphatase Creatine Kinase Troponin I B-Natriuretic Peptide Total Protein Albumin TSH ASSESSMENT/PLAN: 63yo male with history of CVA with residual deficits, carotid stenosis s/p , HLD, tobacco and cocaine abuse, and COPD who presented to ED reportedly with increasing weakness x 2 weeks. 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 He uses a walker at home. He also reported loss of appetite and weight loss of 20lbs "recently." He has had cold sweats and denies fever, nausea, or vomiting. No chest pain or dizziness. He was admitted for further evaluation and appears deconditioned with generalized weakness. His right sided motor deficits seem minimal but his overall appearance is more concerning with weight loss and limited effort. Ct head was completed and without acute changes. Will check MRI to confirm no infarcts but would recommend generalized approach and medical optimization. Increased nutrition, PO intake. Physical therapy may be of benefit, fall precautions. Workup/mgmt for COPD. Can continue plavix and statin for now. May require short term rehab depending on how he progresses.
[2018-10-12] MEDS: CLOPIDOGREL BISULFATE 75 MG TABLET (FP) PO SCH (09:36)
[2018-10-12] MEDS: FOLIC ACID 1 MG TABLET (FP) PO SCH (09:36)
[2018-10-12] MEDS: THIAMINE HCL 100 MG TABLET (FP) PO SCH (09:36)
[2018-10-12 10:07] LABS: ALBUMIN 3.4 g/dl (3.4-5.0); BILIRUBIN,TOTAL 0.5 mg/dL (0.2-1); BLOOD UREA NITROGEN 27.8 mg/dL (7-18); CALCIUM 8.6 mg/dL (8.5-10.1); CREATININE 0.8 mg/dL (0.55-1.3); MAGNESIUM 2.3 mg/dL (1.8-2.4); PHOSPHOROUS 2.5 mg/dL (2.5-4.9); POTASSIUM 4.2 mmol/L (3.5-5.1); TOT PROT 6.3 g/dl (6.4-8.2)
--- NOTE | 2018-10-12 11:24 | EKG ---
Test Reason : Blood Pressure : / mmHG Vent. Rate : 069 BPM Atrial Rate : 069 BPM P-R Int : 132 ms QRS Dur : 078 ms QT Int : 388 ms P-R-T Axes : 076 -22 070 degrees QTc Int : 415 ms SINUS RHYTHM WITH PREMATURE ATRIAL COMPLEXES WHEN COMPARED WITH ECG OF 30-SEP-2018 02:23, PREMATURE ATRIAL COMPLEXES ARE NOW PRESENT CRITERIA FOR SEPTAL INFARCT ARE NO LONGER PRESENT Confirmed by LAY QUINONEZ, NAYA ([id number]) on 10/12/2018 11:24:29 AM Referred By: Confirmed By:NAYA CHUN MD
[2018-10-12 12:50] LABS: METHADONE, UR NEGATIVE ng/ml (CUTOFF=300); OPIATES, URI NEGATIVE ng/ml (CUTOFF=300); PHENCYCLIDINE,URINE NEGATIVE ng/ml (CUTOFF=25); URINE AMPHETAMINES NEGATIVE ng/ml (CUTOFF=500); URINE BARBITURATES NEGATIVE ng/ml (CUTOFF=200); URINE BENZODIAZEPINES NEGATIVE ng/ml (CUTOFF=200)
[2018-10-12 12:56] LABS: COCAINE, UR POSITIVE ng/ml (CUTOFF=300)
--- NOTE | 2018-10-12 13:24 | PN ---
Physical Exam: SUBJECTIVE: Patient seen and examined, reports generalized weakness, no worse on right side currently. Also 1.5 years of poor oral intake, unintentional weight loss and overall progressive weakness and inability to perform ADLs OBJECTIVE: Vital Signs Period Temp Pulse Resp BP Sys/White Pulse Ox Last 24 Hr 97.6 F-98.5 F 67-104 17-20 111-135/62-79 95-99 Intake & Output 10/09/18 10/10/18 10/11/18 10/12/18 23:59 23:59 23:59 23:59 Intake Total 150 Output Total 325 Balance -175 Weight 130 lb 122 lb 8 oz General: overall dishevel, deconditioned male in no acute distress Neck: soft, supple, no JVD, left CEA scar CVS:S1s2 regular Chest: decreased air entry all over, no rales or wheezing Abdomen:soft, NT, ND, pos bowel sounds Extremities: no edema Neuro: AAOX3, mild right facial droop, RUE/RLE 5-/5, no pronator drift, DTR b/l symmetric, gait deferred Laboratory Results - last 24 hr 10/11/18 10/11/18 10/11/18 15:05 15:05 15:05 WBC 8.7 RBC 4.91 Hgb 16.1 Hct 47.1 MCV 95.9 MCH 32.8 MCHC 34.2 RDW 13.2 Plt Count 231 D MPV 8.7 Absolute Neuts (auto) 6.1 Neutrophils % 70.3 Lymphocytes % 23.2 D Monocytes % 5.2 D Eosinophils % 0.9 D Basophils % 0.4 Nucleated RBC % 0 PT with INR 11.90 INR 1.01 Sodium 140 Potassium 4.1 Chloride 108 H Carbon Dioxide 23 Anion Gap 9 BUN 18.3 H Creatinine 1.0 Est GFR (CKD-EPI)AfAm 92.42 Est GFR (CKD-EPI)NonAf 79.75 Random Glucose 92 Lactic Acid Calcium 9.7 Phosphorus Magnesium 2.3 Total Bilirubin 0.6 AST 21 ALT 24 Alkaline Phosphatase 81 Creatine Kinase 112 Troponin I < 0.02 B-Natriuretic Peptide 37.5 Total Protein 7.6 Albumin 4.5 Vitamin B12 TSH 1.24 Urine Color Urine Appearance Urine pH Ur Specific [place] Urine Protein Urine Glucose (UA) Urine Ketones Urine Blood Urine Nitrite Urine Bilirubin Urine Urobilinogen Ur Leukocyte Esterase Opiates Screen Methadone Screen Barbiturate Screen Phencyclidine Screen Ur Amphetamines Screen MDMA (Ecstasy) Screen Benzodiazepines Screen Cocaine Screen U Marijuana (THC) Screen 10/11/18 10/11/18 10/11/18 17:22 22:22 23:00 WBC RBC Hgb Hct MCV MCH MCHC RDW Plt Count MPV Absolute Neuts (auto) Neutrophils % Lymphocytes % Monocytes % Eosinophils % Basophils % Nucleated RBC % PT with INR INR Sodium Potassium Chloride Carbon Dioxide Anion Gap BUN Creatinine Est GFR (CKD-EPI)AfAm Est GFR (CKD-EPI)NonAf Random Glucose Lactic Acid 1.0 Calcium Phosphorus Magnesium Total Bilirubin AST ALT Alkaline Phosphatase Creatine Kinase Troponin I B-Natriuretic Peptide Total Protein Albumin Vitamin B12 874 TSH Urine Color Yellow Urine Appearance Cloudy Urine pH 6.0 Ur Specific [place] 1.022 Urine Protein Negative Urine Glucose (UA) Negative Urine Ketones 1+ H Urine Blood Negative Urine Nitrite Negative Urine Bilirubin Negative Urine Urobilinogen 1.0 Ur Leukocyte Esterase Negative Opiates Screen Methadone Screen Barbiturate Screen Phencyclidine Screen Ur Amphetamines Screen MDMA (Ecstasy) Screen Benzodiazepines Screen Cocaine Screen U Marijuana (THC) Screen 10/12/18 10/12/18 10/12/18 06:00 06:00 08:30 WBC 8.2 RBC 4.24 Hgb 14.1 Hct 41.3 MCV 97.4 H MCH 33.3 MCHC 34.2 RDW 13.2 Plt Count 202 MPV 9.0 Absolute Neuts (auto) Neutrophils % Lymphocytes % Monocytes % Eosinophils % Basophils % Nucleated RBC % PT with INR INR Sodium 141 Potassium 4.2 Chloride 112 H Carbon Dioxide 20 L Anion Gap 9 BUN 27.8 H Creatinine 0.8 Est GFR (CKD-EPI)AfAm 110.19 Est GFR (CKD-EPI)NonAf 95.07 Random Glucose 78 Lactic Acid Calcium 8.6 Phosphorus 2.5 Magnesium 2.3 Total Bilirubin 0.5 AST 17 ALT 20 Alkaline Phosphatase 64 Creatine Kinase Troponin I B-Natriuretic Peptide Total Protein 6.3 L Albumin 3.4 Vitamin B12 TSH Urine Color Urine Appearance Urine pH Ur Specific [place] Urine Protein Urine Glucose (UA) Urine Ketones Urine Blood Urine Nitrite Urine Bilirubin Urine Urobilinogen Ur Leukocyte Esterase Opiates Screen Negative Methadone Screen Negative Barbiturate Screen Negative Phencyclidine Screen Negative Ur Amphetamines Screen Negative MDMA (Ecstasy) Screen Negative Benzodiazepines Screen Negative Cocaine Screen Positive A* U Marijuana (THC) Screen Negative Active Medications Generic Name Dose Route Start Last Admin Trade Name Freq PRN Reason Stop Dose Admin Albuterol Sulfate 2 puff 10/11/18 20:37 Ventolin Hfa Inhaler - IH Q6H PRN SHORT OF BREATH/WHEEZING Albuterol/Ipratropium 1 amp 10/11/18 23:51 Duoneb - NEB Q6H PRN SHORTNESS OF BREATH Atorvastatin Calcium 40 mg 10/11/18 22:00 10/11/18 22:30 Lipitor - PO 40 mg HS MICHAEL Administration Clopidogrel Bisulfate 75 mg 10/12/18 10:00 10/12/18 09:36 Plavix - PO 75 mg DAILY MICHAEL Administration Folic Acid 1 mg 10/12/18 10:00 10/12/18 09:36 Folic Acid - PO 1 mg DAILY MICHAEL Administration Sodium Chloride 1,000 mls @ 50 mls/hr 10/11/18 20:30 10/11/18 20:57 Normal Saline - IV 10/12/18 20:35 50 mls/hr ASDIR MICHAEL Administration Thiamine HCl 100 mg 10/12/18 10:00 10/12/18 09:36 Vitamin B1 - PO 100 mg DAILY MICHAEL Administration CT brain/CXR results reviewed ASSESSMENT/PLAN: 63 yom with PMHx of 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 MRI brain to r/o new CVA Neurology input noted. Continue plavix/statin. Last carotid duplex with Dr. Geller 04/2018 with no change. Dietary consult, Gentle hydration. Smoking/cocaine cessation counseling. TSH/b12 noted. PT eval noted, for SNF. Dispo to SNF pending MRI and disposition arrangements. Plan discussed with patient, nursing and CM, all questions answered. Visit type - Emergency Visit Emergency Visit: Yes ED Registration Date: 10/11/18 Care time: The patient presented to the Emergency Department on the above date and was hospitalized for further evaluation of their emergent condition. - New Patient This patient is new to me today: Yes Date on this admission: 10/12/18 - Critical Care Critical Care patient: No - Discharge Referral Referred to [facility] Med P.C.: No
[2018-10-12 15:21] VITALS: BMI 16.5
[2018-10-12] MEDS: ATORVASTATIN CA 40 MG TABLET (FP) PO SCH (21:51)
[2018-10-12] MEDS: SODIUM CHLORIDE 1,000 ML IV SCH (21:51)
[2018-10-12] MEDS ORDERED: MELATONIN 5 MG TABLETS PO ONE (22:16)
--- NOTE | 2018-10-13 06:40 | PN ---
Progress Note (short form) - Note Progress Note: Paged by nurse at around 10pm, patient reported to have "suicidal ideation". Came to assess patient. He was lying in bed, looking sad, reporting that he has been depressed since he had the stroke and just "wanted to ". He reported having thoughts of dying multiple times a day. When asked if he has any plans, he denies any intention, but he thinks about it often 1:1 observation ordered Melatonin was given for sleep, which patient agreed to.
[2018-10-13 08:17] LABS: BLOOD UREA NITROGEN 15.8 mg/dL (7-18); CALCIUM 9.2 mg/dL (8.5-10.1); CREATININE 0.7 mg/dL (0.55-1.3); MAGNESIUM 2.3 mg/dL (1.8-2.4); PHOSPHOROUS 2.6 mg/dL (2.5-4.9); POTASSIUM 4.2 mmol/L (3.5-5.1)
[2018-10-13] MEDS: FOLIC ACID 1 MG TABLET (FP) PO SCH (09:09)
[2018-10-13] MEDS: CLOPIDOGREL BISULFATE 75 MG TABLET (FP) PO SCH (09:09)
[2018-10-13] MEDS: THIAMINE HCL 100 MG TABLET (FP) PO SCH (09:09)
--- NOTE | 2018-10-13 11:30 | PN ---
Physical Exam: SUBJECTIVE: Patient seen and examined, reports had a 'meltdown' yesterday. Denies any SI currently. Still reports pain on right side and asking for "IV Demerol". No complaints otherwise. OBJECTIVE: Vital Signs Period Temp Pulse Resp BP Sys/White Pulse Ox Last 24 Hr 97.4 F-98.8 F 56-90 17-20 116-156/52-96 98 Intake & Output 10/10/18 10/11/18 10/12/18 10/13/18 23:59 23:59 23:59 23:59 Intake Total 600 Output Total 1500 Balance -900 Weight 130 lb 122 lb General: overall dishevel, deconditioned male in no acute distress Neck: soft, supple, no JVD, left CEA scar CVS:S1s2 regular Chest: decreased air entry all over, no rales or wheezing Abdomen:soft, NT, ND, pos bowel sounds Extremities: no edema Neuro: AAOX3, mild right facial droop, RUE/RLE 5-/5, no pronator drift, DTR b/l symmetric, gait deferred Laboratory Results - last 24 hr 10/11/18 10/12/18 10/13/18 23:00 08:30 05:45 Hct 38.2 Sodium 141 Potassium 4.2 Chloride 110 H Carbon Dioxide 24 Anion Gap 8 BUN 15.8 Creatinine 0.7 Est GFR (CKD-EPI)AfAm 116.40 Est GFR (CKD-EPI)NonAf 100.43 Random Glucose 93 Calcium 9.2 Phosphorus 2.6 Magnesium 2.3 Folate 1100 Folate Hemolysate 420.3 Opiates Screen Negative Methadone Screen Negative Barbiturate Screen Negative Phencyclidine Screen Negative Ur Amphetamines Screen Negative MDMA (Ecstasy) Screen Negative Benzodiazepines Screen Negative Cocaine Screen Positive A* U Marijuana (THC) Screen Negative Active Medications Generic Name Dose Route Start Last Admin Trade Name Freq PRN Reason Stop Dose Admin Albuterol Sulfate 2 puff 10/11/18 20:37 Ventolin Hfa Inhaler - IH Q6H PRN SHORT OF BREATH/WHEEZING Albuterol/Ipratropium 1 amp 10/11/18 23:51 10/12/18 20:15 Duoneb - NEB 1 amp Q6H PRN Administration SHORTNESS OF BREATH Atorvastatin Calcium 40 mg 10/11/18 22:00 10/12/18 21:51 Lipitor - PO 40 mg HS MICHAEL Administration Clopidogrel Bisulfate 75 mg 10/12/18 10:00 10/13/18 09:09 Plavix - PO 75 mg DAILY MICHAEL Administration Folic Acid 1 mg 10/12/18 10:00 10/13/18 09:09 Folic Acid - PO 1 mg DAILY MICHAEL Administration Thiamine HCl 100 mg 10/12/18 10:00 10/13/18 09:09 Vitamin B1 - PO 100 mg DAILY MICHAEL Administration MRI brain results reviewed ASSESSMENT/PLAN: 63 yom with 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 Continue 1:1 for now, suicidal precautions. MRI neg for new concerns. Neurology input appreciated Continue Plavix/statin. Cocaine/tobacco cessation counseling. Last carotid duplex with Dr. Geller 04/2018 with no change. Dietary consult, Off IVF. TSH/b12 noted. PT eval noted, for SNF. Dispo to SNF pending psych input and disposition arrangements. Plan discussed with patient, nursing and CM, all questions answered. Visit type - Emergency Visit Emergency Visit: Yes ED Registration Date: 10/11/18 Care time: The patient presented to the Emergency Department on the above date and was hospitalized for further evaluation of their emergent condition. - New Patient This patient is new to me today: No - Critical Care Critical Care patient: No - Discharge Referral Referred to [facility] Med P.C.: No
[2018-10-13] MEDS: ACETAMINOPHEN 325 MG TABLET (FP) PO PRN (21:06)
[2018-10-13] MEDS: ATORVASTATIN CA 40 MG TABLET (FP) PO SCH (21:06)
[2018-10-14] MEDS: ACETAMINOPHEN 325 MG TABLET (FP) PO PRN (07:29)
--- NOTE | 2018-10-14 09:06 | CON.PSY ---
Psychiatry Consult Chief Complaint: I dont want to kill myself. I am in pain, no one wants give me pain meds. I have this pain since my Stroke. History of substance abuse. No Psych history or suicide attempts or behaviour. Symptoms: reports: Irritability - Previous Psychiatric Treatment Outpatient: None Inpatient: None - Previous Substance Abuse Treatment Outpatient: More than 6 mos ago - Reason for Previous Treatment Reason for Previous Treatment: Cocaine - Current Medications Current Medications: Active Medications Acetaminophen (Tylenol -) 650 mg PO Q4H PRN PRN Reason: PAIN 4-6 Last Admin: 10/14/18 07:29 Dose: 650 mg Albuterol Sulfate (Ventolin Hfa Inhaler -) 2 puff IH Q6H PRN PRN Reason: SHORT OF BREATH/WHEEZING Albuterol/Ipratropium (Duoneb -) 1 amp NEB Q6H PRN PRN Reason: SHORTNESS OF BREATH Last Admin: 10/12/18 20:15 Dose: 1 amp Atorvastatin Calcium (Lipitor -) 40 mg PO [facility] Last Admin: 10/13/18 21:06 Dose: 40 mg Clopidogrel Bisulfate (Plavix -) 75 mg PO DAILY [facility] Last Admin: 10/13/18 09:09 Dose: 75 mg Folic Acid (Folic Acid -) 1 mg PO DAILY [facility] Last Admin: 10/13/18 09:09 Dose: 1 mg Thiamine HCl (Vitamin B1 -) 100 mg PO DAILY [facility] Last Admin: 10/13/18 09:09 Dose: 100 mg - Allergies Allergies: Allergies Allergy/AdvReac Type Severity Reaction Status Date / Time No Known Allergies Allergy Verified 10/11/18 14:39 - Current Living Status Usual Living Arrangement: Alone - Current Mental Status Evaluation Appearance: Disheveled Attitude: Guarded - Affect Affect: Constrictive Appropriateness: Appropriate to Content - Mood Mood: Angry - Speech/Language Expressive: Coherent - Psychomotor Activity Psychomotor Activity: Normal - Thought Process Thought Process: Intact - Thought Content Hallucinations: Absent Delusions: Absent - Self Perception Self Perception: No Impairment - Cognition Attention: Alert Orientation: Time Memory, Immediate Recall: Intact Memory, Short Term: 3/3 Memory, Remote with Promptin/3 - Concentration Serial Sevens Intact: Yes Simple Calculations Intact: Yes - Abstraction Proverb Interpretation: Intact Judgement: Minimally Impaired - Insight Insight: Intact - Impulse Control Impulse Control: Minimally Impaired - Suicidal Ideation Suicidal Ideation: No - Homicidal Ideation Homicidal Ideation: No Assessment/Plan 1) Cymbalta 20 mg po od for depression and pain.
[2018-10-14] MEDS ORDERED: PT OWN MED DRAWER 7, Y5N ONE (09:21)
[2018-10-14] MEDS: FOLIC ACID 1 MG TABLET (FP) PO SCH (09:23)
[2018-10-14] MEDS: CLOPIDOGREL BISULFATE 75 MG TABLET (FP) PO SCH (09:23)
[2018-10-14] MEDS: DULoxetine HCL 20 MG CAPSULE.DR PO SCH (09:23)
[2018-10-14] MEDS: THIAMINE HCL 100 MG TABLET (FP) PO SCH (09:24)
--- NOTE | 2018-10-14 10:02 | PN ---
Physical Exam: SUBJECTIVE: Patient seen and examined, reports generalized chronic pain, more right sided since the stroke, asking for 'tylenol #4". No complaints otherwise. OBJECTIVE: Vital Signs Period Temp Pulse Resp BP Sys/White Pulse Ox Last 24 Hr 97.6 F-98.9 F 61-66 17-19 100-140/61-75 97-99 Intake & Output 10/11/18 10/12/18 10/13/18 10/14/18 23:59 23:59 23:59 23:59 Intake Total 600 Output Total 1500 300 Balance -900 -300 Weight 130 lb 122 lb General: overall dishevel, deconditioned male in no acute distress Neck: soft, supple, no JVD, left CEA scar CVS:S1s2 regular Chest: decreased air entry all over, no rales or wheezing Abdomen:soft, NT, ND, pos bowel sounds Extremities: no edema Neuro: AAOX3, mild right facial droop, RUE/RLE 5-/5, no pronator drift, DTR b/l symmetric, gait deferred Psych: denies active SI/HI Active Medications Generic Name Dose Route Start Last Admin Trade Name Freq PRN Reason Stop Dose Admin Acetaminophen 650 mg 10/13/18 20:25 10/14/18 07:29 Tylenol - PO 650 mg Q4H PRN Administration PAIN 4-6 Albuterol Sulfate 2 puff 10/11/18 20:37 Ventolin Hfa Inhaler - IH Q6H PRN SHORT OF BREATH/WHEEZING Albuterol/Ipratropium 1 amp 10/11/18 23:51 10/12/18 20:15 Duoneb - NEB 1 amp Q6H PRN Administration SHORTNESS OF BREATH Atorvastatin Calcium 40 mg 10/11/18 22:00 10/13/18 21:06 Lipitor - PO 40 mg HS MICHAEL Administration Clopidogrel Bisulfate 75 mg 10/12/18 10:00 10/14/18 09:23 Plavix - PO 75 mg DAILY MICHAEL Administration Duloxetine HCl 20 mg 10/14/18 10:00 10/14/18 09:23 Cymbalta - PO 20 mg DAILY MICHAEL Administration Folic Acid 1 mg 10/12/18 10:00 10/14/18 09:23 Folic Acid - PO 1 mg DAILY MICHAEL Administration Thiamine HCl 100 mg 10/12/18 10:00 10/14/18 09:24 Vitamin B1 - PO 100 mg DAILY MICHAEL Administration ASSESSMENT/PLAN: 63 yom with 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 Start gabapentin. MRI results noted. Neurology input appreciated Continue Plavix/statin. Cocaine/tobacco cessation counseling. Last carotid duplex with Dr. Geller 04/2018 with no change. Dietary consult, Off IVF. TSH/b12 noted. PT eval noted, for SNF. Dispo to SNF pending disposition arrangements. Plan discussed with patient, nursing and CM, all questions answered. Visit type - Emergency Visit Emergency Visit: Yes ED Registration Date: 10/11/18 Care time: The patient presented to the Emergency Department on the above date and was hospitalized for further evaluation of their emergent condition. - New Patient This patient is new to me today: No - Critical Care Critical Care patient: No - Discharge Referral Referred to [facility] Med P.C.: No
[2018-10-14] MEDS: GABAPENTIN 100 MG CAPSULE (FP) PO SCH ×2 (13:32→22:11)
[2018-10-14] MEDS: ATORVASTATIN CA 40 MG TABLET (FP) PO SCH (22:11)
[2018-10-15] MEDS: GABAPENTIN 100 MG CAPSULE (FP) PO SCH (06:20)
--- NOTE | 2018-10-15 08:42 | PN ---
Progress Note (short form) - Note Progress Note: Neurology CHIEF COMPLAINT: weakness, failure to thrive PCP: Sarthak HISTORY OF PRESENT ILLNESS: 63yo male with history of CVA with residual deficits, carotid stenosis s/p , HLD, tobacco and cocaine abuse, and COPD who presented to ED reportedly with increasing weakness x 2 weeks. 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 He uses a walker at home. He also reported loss of appetite and weight loss of 20lbs "recently." He has had cold sweats and denies fever, nausea, or vomiting. No chest pain or dizziness. He was admitted for further evaluation and appears deconditioned with generalized weakness. His right sided motor deficits seem minimal but his overall appearance is more concerning with weight loss and limited effort. Ct head was completed and without acute changes, L MCA and METAL WIRE TECHNICIAN territory infarcts noted. MRI brain completed and without acute changes. Psych note reviewed and Cymbalta added. Hospitalist notes reviewed. Allergies No Known Allergies Allergy (Verified 10/11/18 14:39) Active Medications Acetaminophen (Tylenol -) 650 mg PO Q4H PRN PRN Reason: PAIN 4-6 Last Admin: 10/14/18 07:29 Dose: 650 mg Albuterol Sulfate (Ventolin Hfa Inhaler -) 2 puff IH Q6H PRN PRN Reason: SHORT OF BREATH/WHEEZING Albuterol/Ipratropium (Duoneb -) 1 amp NEB Q6H PRN PRN Reason: SHORTNESS OF BREATH Last Admin: 10/12/18 20:15 Dose: 1 amp Atorvastatin Calcium (Lipitor -) 40 mg PO HS [facility] Last Admin: 10/14/18 22:11 Dose: 40 mg Clopidogrel Bisulfate (Plavix -) 75 mg PO DAILY [facility] Last Admin: 10/14/18 09:23 Dose: 75 mg Duloxetine HCl (Cymbalta -) 20 mg PO DAILY [facility] Last Admin: 10/14/18 09:23 Dose: 20 mg Folic Acid (Folic Acid -) 1 mg PO DAILY [facility] Last Admin: 10/14/18 09:23 Dose: 1 mg Gabapentin (Neurontin -) 100 mg PO TID [facility] Last Admin: 10/15/18 06:20 Dose: 100 mg Thiamine HCl (Vitamin B1 -) 100 mg PO DAILY MICHAEL Last Admin: 10/14/18 09:24 Dose: 100 mg PHYSICAL EXAMINATION Vital Signs Period Temp Pulse Resp BP Sys/White Pulse Ox Last 24 Hr 97.6 F-98.7 F 61-79 16-20 114-137/67-76 99 GENERAL: Awake, alert, and fully oriented, in no acute distress. Thin. HEAD: Normal with no signs of trauma. EYES: Pupils equal, round and reactive to light, extraocular movements intact, sclera anicteric, conjunctiva clear. No lid lag. EARS, NOSE, THROAT: Ears normal, nares patent, left erythematous mucous membrane , oropharynx clear without exudates. Moist mucous membranes. NECK: Normal range of motion, no JVD, or masses. LUNGS: Breath sounds equal, gurgling upper lung davidson. No wheezes, and no crackles. No accessory muscle use. HEART: Regular rate and rhythm, normal S1 and S2 without murmur, rub or gallop. ABDOMEN: Nonsoft, nontender, not distended, normoactive bowel sounds, no guarding, no rebound, no masses. No hepatomegaly or splenomegaly. MUSCULOSKELETAL: Limited ROM of R extremities, able to walk with assistance UPPER EXTREMITIES: strength R 4/5, L 5/5, warm, well-perfused. No cyanosis. No clubbing. No peripheral edema. LOWER EXTREMITIES: strength R 3/5, L 5/5, warm, well-perfused. No peripheral edema. NEUROLOGICAL: R facial droop at rest, symmetrical smile, RUE and RLE 5-/5, sensory intact to LT, reflexes 2+, gait deferred PSYCHIATRIC: Cooperative. Good eye contact. Appropriate mood and affect. SKIN: Warm, dry, normal turgor, no rashes or lesions noted, normal capillary refill. CBCD WBC 8.2 K/mm3 (4.0-10.0) 10/12/18 06:00 RBC 4.24 M/mm3 (4.00-5.60) 10/12/18 06:00 Hgb 14.1 GM/dL (11.7-16.9) 10/12/18 06:00 Hct 41.3 % (35.4-49) 10/12/18 06:00 MCV 97.4 fl (80-96) H 10/12/18 06:00 MCHC 34.2 g/dl (32.0-35.9) 10/12/18 06:00 RDW 13.2 % (11.9-15.9) 10/12/18 06:00 Plt Count 202 K/MM3 (134-434) 10/12/18 06:00 MPV 9.0 fl (7.5-11.1) 10/12/18 06:00 CMP Sodium 141 mmol/L (136-145) 10/13/18 05:45 Potassium 4.2 mmol/L (3.5-5.1) 10/13/18 05:45 Chloride 110 mmol/L (98-107) H 10/13/18 05:45 Carbon Dioxide 24 mmol/L (21-32) 10/13/18 05:45 Anion Gap 8 MMOL/L (8-16) 10/13/18 05:45 BUN 15.8 mg/dL (7-18) 10/13/18 05:45 Creatinine 0.7 mg/dL (0.55-1.3) 10/13/18 05:45 Random Glucose 93 mg/dL (74-106) 10/13/18 05:45 Calcium 9.2 mg/dL (8.5-10.1) 10/13/18 05:45 Total Bilirubin 0.5 mg/dL (0.2-1) 10/12/18 06:00 AST 17 U/L (15-37) 10/12/18 06:00 ALT 20 U/L (13-61) 10/12/18 06:00 Alkaline Phosphatase 64 U/L (45-117) 10/12/18 06:00 Total Protein 6.3 g/dl (6.4-8.2) L 10/12/18 06:00 Albumin 3.4 g/dl (3.4-5.0) 10/12/18 06:00 CARDIAC ENZYMES Creatine Kinase 112 U/L (26-308) 10/11/18 15:05 Troponin I < 0.02 ng/ml (0.00-0.05) 10/11/18 15:05 ASSESSMENT/PLAN: 63yo male with history of CVA with residual deficits, carotid stenosis s/p , HLD, tobacco and cocaine abuse, and COPD who presented to ED reportedly with increasing weakness x 2 weeks. 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 He uses a walker at home. He also reported loss of appetite and weight loss of 20lbs "recently." He has had cold sweats and denies fever, nausea, or vomiting. No chest pain or dizziness. He was admitted for further evaluation and appears deconditioned with generalized weakness. His right sided motor deficits seem minimal but his overall appearance is more concerning with weight loss and limited effort. Ct head was completed and without acute changes. MRI brain reviewed, without acute changes. Increased nutrition, PO intake. Rehab may be of benefit, fall precautions. Workup/mgmt for COPD. Can continue plavix and statin.
[2018-10-15] MEDS: DULoxetine HCL 20 MG CAPSULE.DR PO SCH (11:39)
[2018-10-15] MEDS: THIAMINE HCL 100 MG TABLET (FP) PO SCH (11:39)
[2018-10-15] MEDS: CLOPIDOGREL BISULFATE 75 MG TABLET (FP) PO SCH (11:39)
[2018-10-15] MEDS: FOLIC ACID 1 MG TABLET (FP) PO SCH (11:39)
--- NOTE | 2018-10-15 11:43 | DS ---
Physical Exam: SUBJECTIVE: Patient seen and examined, ambulating with PT, no complaints. OBJECTIVE: Vital Signs Period Temp Pulse Resp BP Sys/White Pulse Ox Last 24 Hr 97.6 F-98.7 F 61-71 16-20 114-137/67-76 99 Intake & Output 10/12/18 10/13/18 10/14/18 10/15/18 23:59 23:59 23:59 23:59 Intake Total 600 775 250 Output Total 6770 082 5548 600 Balance -900 -300 -825 -350 Weight 122 lb PHYSICAL EXAM General: overall dishevel, deconditioned male in no acute distress Neck: soft, supple, no JVD, left CEA scar CVS:S1s2 regular Chest: decreased air entry all over, no rales or wheezing Abdomen:soft, NT, ND, pos bowel sounds Extremities: no edema Neuro: AAOX3, mild right facial droop, RUE/RLE 5-/5, no pronator drift, DTR b/l symmetric, gait deferred Psych: denies active SI/HI, motivated, walking with PT LABS Laboratory Tests 10/11/18 10/11/18 10/11/18 15:05 15:05 15:05 WBC 8.7 RBC 4.91 Hgb 16.1 Hct 47.1 MCV 95.9 MCH 32.8 MCHC 34.2 RDW 13.2 Plt Count 231 D MPV 8.7 Absolute Neuts (auto) 6.1 Neutrophils % 70.3 Lymphocytes % 23.2 D Monocytes % 5.2 D Eosinophils % 0.9 D Basophils % 0.4 Nucleated RBC % 0 PT with INR 11.90 INR 1.01 Sodium 140 Potassium 4.1 Chloride 108 H Carbon Dioxide 23 Anion Gap 9 BUN 18.3 H Creatinine 1.0 Est GFR (CKD-EPI)AfAm 92.42 Est GFR (CKD-EPI)NonAf 79.75 Random Glucose 92 Lactic Acid Calcium 9.7 Phosphorus Magnesium 2.3 Total Bilirubin 0.6 AST 21 ALT 24 Alkaline Phosphatase 81 Creatine Kinase 112 Troponin I < 0.02 B-Natriuretic Peptide 37.5 Total Protein 7.6 Albumin 4.5 Vitamin B12 Folate Folate Hemolysate TSH 1.24 Urine Color Urine Appearance Urine pH Ur Specific Lillie Urine Protein Urine Glucose (UA) Urine Ketones Urine Blood Urine Nitrite Urine Bilirubin Urine Urobilinogen Ur Leukocyte Esterase Opiates Screen Methadone Screen Barbiturate Screen Phencyclidine Screen Ur Amphetamines Screen MDMA (Ecstasy) Screen Benzodiazepines Screen Cocaine Screen U Marijuana (THC) Screen 10/11/18 10/11/18 10/11/18 17:22 22:22 23:00 WBC RBC Hgb Hct MCV MCH MCHC RDW Plt Count MPV Absolute Neuts (auto) Neutrophils % Lymphocytes % Monocytes % Eosinophils % Basophils % Nucleated RBC % PT with INR INR Sodium Potassium Chloride Carbon Dioxide Anion Gap BUN Creatinine Est GFR (CKD-EPI)AfAm Est GFR (CKD-EPI)NonAf Random Glucose Lactic Acid 1.0 Calcium Phosphorus Magnesium Total Bilirubin AST ALT Alkaline Phosphatase Creatine Kinase Troponin I B-Natriuretic Peptide Total Protein Albumin Vitamin B12 874 Folate Folate Hemolysate TSH Urine Color Yellow Urine Appearance Cloudy Urine pH 6.0 Ur Specific Lillie 1.022 Urine Protein Negative Urine Glucose (UA) Negative Urine Ketones 1+ H Urine Blood Negative Urine Nitrite Negative Urine Bilirubin Negative Urine Urobilinogen 1.0 Ur Leukocyte Esterase Negative Opiates Screen Methadone Screen Barbiturate Screen Phencyclidine Screen Ur Amphetamines Screen MDMA (Ecstasy) Screen Benzodiazepines Screen Cocaine Screen U Marijuana (THC) Screen 10/11/18 10/12/18 10/12/18 23:00 06:00 06:00 WBC 8.2 RBC 4.24 Hgb 14.1 Hct 38.2 41.3 MCV 97.4 H MCH 33.3 MCHC 34.2 RDW 13.2 Plt Count 202 MPV 9.0 Absolute Neuts (auto) Neutrophils % Lymphocytes % Monocytes % Eosinophils % Basophils % Nucleated RBC % PT with INR INR Sodium 141 Potassium 4.2 Chloride 112 H Carbon Dioxide 20 L Anion Gap 9 BUN 27.8 H Creatinine 0.8 Est GFR (CKD-EPI)AfAm 110.19 Est GFR (CKD-EPI)NonAf 95.07 Random Glucose 78 Lactic Acid Calcium 8.6 Phosphorus 2.5 Magnesium 2.3 Total Bilirubin 0.5 AST 17 ALT 20 Alkaline Phosphatase 64 Creatine Kinase Troponin I B-Natriuretic Peptide Total Protein 6.3 L Albumin 3.4 Vitamin B12 Folate 1100 Folate Hemolysate 420.3 TSH Urine Color Urine Appearance Urine pH Ur Specific Lillie Urine Protein Urine Glucose (UA) Urine Ketones Urine Blood Urine Nitrite Urine Bilirubin Urine Urobilinogen Ur Leukocyte Esterase Opiates Screen Methadone Screen Barbiturate Screen Phencyclidine Screen Ur Amphetamines Screen MDMA (Ecstasy) Screen Benzodiazepines Screen Cocaine Screen U Marijuana (THC) Screen 10/12/18 10/13/18 08:30 05:45 WBC RBC Hgb Hct MCV MCH MCHC RDW Plt Count MPV Absolute Neuts (auto) Neutrophils % Lymphocytes % Monocytes % Eosinophils % Basophils % Nucleated RBC % PT with INR INR Sodium 141 Potassium 4.2 Chloride 110 H Carbon Dioxide 24 Anion Gap 8 BUN 15.8 Creatinine 0.7 Est GFR (CKD-EPI)AfAm 116.40 Est GFR (CKD-EPI)NonAf 100.43 Random Glucose 93 Lactic Acid Calcium 9.2 Phosphorus 2.6 Magnesium 2.3 Total Bilirubin AST ALT Alkaline Phosphatase Creatine Kinase Troponin I B-Natriuretic Peptide Total Protein Albumin Vitamin B12 Folate Folate Hemolysate TSH Urine Color Urine Appearance Urine pH Ur Specific Lillie Urine Protein Urine Glucose (UA) Urine Ketones Urine Blood Urine Nitrite Urine Bilirubin Urine Urobilinogen Ur Leukocyte Esterase Opiates Screen Negative Methadone Screen Negative Barbiturate Screen Negative Phencyclidine Screen Negative Ur Amphetamines Screen Negative MDMA (Ecstasy) Screen Negative Benzodiazepines Screen Negative Cocaine Screen Positive A* U Marijuana (THC) Screen Negative CT brain: CT scan of the head without intravenous contrast Compared to prior MRI of the brain dated 06/21/2017 There is encephalomalacia in the left occipital lobe, artery territory. There is also left perisylvian low-attenuation density consistent with encephalomalacia. A small focal infarct again noted in the left schumacher radiata, posteriorly. Tiny lucent foci in the left thalamus compatible. No mass lesion, gross acute infarct or intracranial hemorrhage are identified. There is no shift of the midline structures. Moderate atrophy, ventricular dilatation and mild periventricular chronic microvascular ischemic disease changes again seen. Moderate deviation of the nasal septum to the left. Visualized nasal sinuses and mastoid air cells are well aerated. Calcification of the cavernous carotid arteries are present. The calvarium is intact. IMPRESSION: No significant interval change. Chronic infarcts in the left posterior cerebral and middle cerebral artery territory again seen as well as a couple of tiny chronic lacunar infarcts in the left thalamus. No gross acute intracranial pathology is identified. Correlate clinically to determine further evaluation and follow-up. MRI brain: MRI of the brain without intravenous contrast A noncontrast MRI of the brain was performed with multiplanar T1 and T2-weighted images obtained. Compared to prior CT scan of the head dated 10/11/2018 and prior MRI of the brain dated 2017. There remains moderate atrophy and ventricular dilatation. Moderate periventricular chronic microvascular ischemic disease changes are present. Encephalomalacia in the left posterior temporal and occipital lobe with exvacuodilatation of the left occipital horn again seen. Encephalomalacia in the left frontal lobe, perisylvian region involving the left insular cortex, posteriorly again seen. Focal chronic infarct again noted in the left periventricular white matter, posteriorly. There is also focal cortical encephalomalacia in the left the right occipital junction. No mass lesion, acute infarct or intracranial hemorrhage are identified. There is no shift of the midline structures. The craniocervical junction appears unremarkable. Flow voids are present within the central intracranial arterial circulation. Both orbits appear unremarkable. Minimal mucosal thickening in the ethmoid air cells. Moderate deviation of the nasal septum towards the left. No suspicious bone marrow abnormal signal is identified. There is no evidence of mastoid effusion, bilaterally IMPRESSION: See discussion above. No significant interval change or acute intracranial pathology is identified. 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 He was seen by neurologist, had CT and MRI brain negative for new concerns. He was continued on his plavix. His drug screen was positive for cocaine and cessation counseling was provided. He expressed suicidal ideation and was seen by psychiatry and started on cymtalta. He was evaluated by physical therapy and will be discharged to SNF in stable condition. Condition: Stable - Instructions Diet, Activity, Other Instructions: You were admitted with weakness, you were seen by neurologist, had MRI brain negative for new concerns. Your drug screen was positive for cocaine. You expressed suicidal ideation, were seen by psychiatrist and started on Cymbalta MEDICATIONS: New medications: Gabapentin 100 mg 3 times daily, titrate up as needed per your doctor Cymbalta 20 mg daily Continue home medications as before INSTRUCTIONS: Strongly advise cocaine cessation FOLLOW UP: With PCP in 1 week of discharge from rehab With neurologist Dr. Robb in 1 week of discharge from rehab With psychiatrist Dr. Evangelista in 2-4 weeks Follow up with vascular surgeon Dr. Geller to continue monitoring your carotid blockage. If you notice any worsening weakness, thoughts of killing your self or any new concerns, please call 911 or come to the ED. Referrals: Shekhar Robb MD [Staff Physician] - Chana Evangelista MD [Staff Physician] - Joe Geller DO [Staff Physician] - Disposition: [facility] - Home Medications Comprehensive Discharge Medication List: Ambulatory Orders Atorvastatin Ca [Lipitor] 40 mg PO HS tablet 06/23/17 Clopidogrel Bisulfate [Plavix -] 75 mg PO DAILY #30 tablet 09/21/17 Albuterol Sulfate Inhaler - [Ventolin HFA Inhaler -] 1 - 2 inh PO QID PRN #1 inhaler 09/30/18 Folic Acid - 1 mg PO DAILY #30 tablet 09/30/18 Thiamine HCl [Vitamin B1 -] 100 mg PO DAILY #30 tablet 09/30/18 This patient is new to me today: No Emergency Visit: Yes ED Registration Date: 10/11/18 Care time: The patient presented to the Emergency Department on the above date and was hospitalized for further evaluation of their emergent condition. Critical Care patient: No - Discharge Referral Referred to [facility] Med [facility] No
[2018-10-15 15:17] VITALS: BP 136/68; PULSE 72; TEMP 98.2
== END 2018-10-15 16:05 | DRG 640 ==
LOC: JER 14:36 → JERBED 20:33 → J4S 23:47
PROVIDERS: ADMIT Internal Medicine; ATTEND Hospitalist
DX: R62.7 Adult failure to thrive (principal); E43 Unspecified severe protein-calorie malnutrition; Z68.1 Body mass index [BMI] 19.9 or less, adult; I69.351 Hemiplegia and hemiparesis following cerebral infarction affecting right dominant side; J44.9 Chronic obstructive pulmonary disease, unspecified; F14.10 Cocaine abuse, uncomplicated; Z72.0 Tobacco use; F32.9 Major depressive disorder, single episode, unspecified; R63.0 Anorexia; E78.5 Hyperlipidemia, unspecified
CPT/HCPCS: 36415; 70450-TC; 70551-TC; 71046-TC-FY; 80048; 80053; 80307; 81003; 82550; 82607; 82747; 83605; 83735; 83880; 84100; 84443; 84484; 85014; 85025; 85027; 85610; 87086; 93005; 93010; 94640; 97116-GP; 97162-GP; 99284-25; J7030

== ENCOUNTER 2021-10-09 19:30 | Inpatient (IN) | payer MEDICARE, OTHER ==
[2021-10-09] MEDS ORDERED: SODIUM CHLORIDE 1,000 ML IV ONE (20:18)
[2021-10-09] MEDS ORDERED: ONDANSETRON 4 MG/2 ML VIAL IVPB ONE (20:18)
[2021-10-09] MEDS ORDERED: ONDANSETRON 4 MG/2 ML VIAL ONE (20:33)
[2021-10-09 21:06] LABS: HEMATOCRIT 44.3 % (35.4-49); HEMOGLOBIN 15.7 G/dL (11.7-16.9); INR 0.98 (0.83-1.09); MCH 34.1 pg (25.7-33.7); MCHC 35.4 g/dl (32.0-35.9); MEAN CELL VOLUME 96.4 fl (80-96); MEAN PLT VOLUME 8.6 fl (7.5-11.1); PLATELET COUNT 235.3 10^3/uL (134-434); PROTHROMBIN TIME (PATIENT) 11.3 SEC (9.7-13.0); RDW 13.6 % (11.9-15.9); WHITE BLOOD COUNT 17.3 10^3/uL (4.0-10.8)
[2021-10-09 21:11] LABS: PLATELET ESTIMATE ADEQUATE
[2021-10-09 21:13] LABS: ALBUMIN 4.9 g/dl (3.4-5.0); BILIRUBIN,TOTAL 0.6 mg/dl (0.2-1); CALCIUM 10.9 mg/dl (8.5-10); TOT PROT 7.7 g/dl (6.4-8.2)
[2021-10-09 22:31] LABS: LACTIC ACID 2.2 mmol/L (0.4-2.0)
[2021-10-09] MEDS ORDERED: morphine CARPU-JECT 2 MG/1 ML DISP.SYRIN IVPUSH ONE (22:32)
[2021-10-09] MEDS ORDERED: morphine SULFATE 4 MG/ML VIAL ONE (23:31)
[2021-10-09 23:43] LABS: EPITHELIAL CELLS RARE /hpf
[2021-10-09 23:44] LABS: AMORP PHOS 3+ /hpf (NONE SEEN)
[2021-10-10] MEDS ORDERED: SODIUM CHLORIDE 1,000 ML IV SCH (01:45)
[2021-10-10] MEDS ORDERED: ONDANSETRON 4 MG/2 ML VIAL IVPUSH PRN (01:46)
[2021-10-10 09:47] LABS: CALCIUM 9.6 mg/dl (8.5-10); CREATININE 0.8 mg/dl (0.55-1.3); MAGNESIUM 2.1 mg/dL (1.8-2.4)
[2021-10-10 10:10] LABS: URIC ACID 4.6 mg/dl (2.6-7.2)
[2021-10-10] MEDS ORDERED: PIPERACILLIN/TAZOB 3.375 GM 3.375 GM in DEXTROSE 5%-WATER - 50 ML IVPB SCH (10:15)
[2021-10-10] MEDS ORDERED: DEXTROSE 5%-WATER - 50 ML IVPB ONE ×2 (10:44→16:41)
[2021-10-10] MEDS ORDERED: PIPERACILLIN/TAZOBACTAM 3.375 GM VIAL IVPB ONE ×2 (10:44→16:41)
[2021-10-10] MEDS: FAMOTIDINE 20 MG/50 ML IVPB 20 MG/50 ML MG IVPB SCH ×2 (10:56→21:43)
[2021-10-10] MEDS: HEPARIN NA (PORCINE) 5,000 UNITS/ML 1ML VIAL SQ SCH ×2 (10:58→21:43)
[2021-10-10 11:10] LABS: HEMATOCRIT 39.9 % (35.4-49); HEMOGLOBIN 13.9 G/dL (11.7-16.9); MCH 33.9 pg (25.7-33.7); MCHC 34.9 g/dl (32.0-35.9); MEAN CELL VOLUME 97.4 fl (80-96); MEAN PLT VOLUME 8.9 fl (7.5-11.1); PLATELET COUNT 235.5 10^3/uL (134-434); RDW 13.6 % (11.9-15.9); WHITE BLOOD COUNT 16.6 10^3/uL (4.0-10.8)
[2021-10-10] MEDS: METOCLOPRAMIDE HCL INJECTION 10 MG/2 ML VIAL IVPUSH SCH ×2 (11:11→17:37)
[2021-10-10 11:56] LABS: PLATELET ESTIMATE ADEQUATE
[2021-10-10 12:08] LABS: ALBUMIN 4.1 g/dl (3.4-5.0)
[2021-10-10 12:11] LABS: BILIRUBIN,DIRECT 0.1 mg/dL (0.0-0.2)
[2021-10-10 12:13] LABS: BILIRUBIN,TOTAL 0.4 mg/dL (0.2-1); TOT PROT 6.9 g/dl (6.4-8.2)
[2021-10-10] MEDS: SODIUM CHLORIDE 1,000 ML IV SCH (12:55)
[2021-10-10] MEDS: morphine SULFATE 4 MG/ML VIAL IVPUSH PRN ×2 (14:38→23:42)
[2021-10-10 15:16] LABS: METHADONE, UR NEGATIVE (NEGATIVE); PHENCYCLIDINE,URINE NEGATIVE (NEGATIVE); URINE BENZODIAZEPINES NEGATIVE (NEGATIVE)
[2021-10-10 15:17] LABS: COCAINE, UR POSITIVE (NEGATIVE); OPIATES, URI POSITIVE (NEGATIVE); URINE AMPHETAMINES NEGATIVE (NEGATIVE); URINE BARBITURATES NEGATIVE (NEGATIVE)
[2021-10-10] MEDS: PIPERACILLIN/TAZOB 3.375 GM 3.375 GM in DEXTROSE 5%-WATER - 50 ML IVPB SCH (17:36)
[2021-10-10] MEDS: ACETAMINOPHEN 1000 MG/100 ML BAG IVPB PRN (21:46)
[2021-10-11] MEDS: PIPERACILLIN/TAZOB 3.375 GM 3.375 GM in DEXTROSE 5%-WATER - 50 ML IVPB SCH ×3 (01:07→19:23)
[2021-10-11] MEDS: METOCLOPRAMIDE HCL INJECTION 10 MG/2 ML VIAL IVPUSH SCH ×3 (06:56→18:11)
[2021-10-11] MEDS: morphine SULFATE 4 MG/ML VIAL IVPUSH PRN ×3 (06:56→18:11)
[2021-10-11 08:44] LABS: HEMATOCRIT 36.6 % (35.4-49); HEMOGLOBIN 12.5 G/dL (11.7-16.9); MCH 33.7 pg (25.7-33.7); MCHC 34.2 g/dl (32.0-35.9); MEAN CELL VOLUME 98.6 fl (80-96); MEAN PLT VOLUME 8.6 fl (7.5-11.1); PLATELET COUNT 163.3 10^3/uL (134-434); RBC 3.71 10^6/uL (4.00-5.60); RDW 13.9 % (11.9-15.9); WHITE BLOOD COUNT 12.9 10^3/uL (4.0-10.8)
[2021-10-11 08:51] LABS: CREATININE 0.8 mg/dl (0.55-1.3)
[2021-10-11] MEDS: ACETAMINOPHEN 1000 MG/100 ML BAG IVPB PRN ×2 (09:56→21:13)
[2021-10-11] MEDS: FAMOTIDINE 20 MG/50 ML IVPB 20 MG/50 ML MG IVPB SCH ×2 (10:05→21:12)
[2021-10-11] MEDS: HEPARIN NA (PORCINE) 5,000 UNITS/ML 1ML VIAL SQ SCH ×2 (10:05→21:12)
[2021-10-11] MEDS: CLOPIDOGREL BISULFATE 75 MG TABLET (FP) PO SCH (10:05)
[2021-10-11 19:23] VITALS: BMI 16.1
[2021-10-12] MEDS: PIPERACILLIN/TAZOB 3.375 GM 3.375 GM in DEXTROSE 5%-WATER - 50 ML IVPB SCH ×3 (01:36→17:55)
[2021-10-12] MEDS: METOCLOPRAMIDE HCL INJECTION 10 MG/2 ML VIAL IVPUSH SCH ×3 (06:13→17:55)
[2021-10-12 07:44] LABS: HEMOGLOBIN 13.3 G/dL (11.7-16.9); MCH 33.8 pg (25.7-33.7); MCHC 35.1 g/dl (32.0-35.9); MEAN CELL VOLUME 96.4 fl (80-96); MEAN PLT VOLUME 8.4 fl (7.5-11.1); RBC 3.94 10^6/uL (4.00-5.60); RDW 13.1 % (11.9-15.9)
[2021-10-12 07:49] LABS: CALCIUM 9.2 mg/dl (8.5-10); CREATININE 0.7 mg/dl (0.55-1.3)
[2021-10-12] MEDS ORDERED: POTASSIUM CHLORIDE TABS 10 MEQ TABLET.ER (FP) PO ONE (09:00)
[2021-10-12] MEDS ORDERED: DEXTROSE 5%-WATER - 50 ML IVPB ONE ×3 (09:56→23:52)
[2021-10-12] MEDS ORDERED: PIPERACILLIN/TAZOBACTAM 3.375 GM VIAL IVPB ONE ×3 (09:56→23:52)
[2021-10-12] MEDS: HEPARIN NA (PORCINE) 5,000 UNITS/ML 1ML VIAL SQ SCH ×2 (10:02→21:57)
[2021-10-12] MEDS: FAMOTIDINE 20 MG/50 ML IVPB 20 MG/50 ML MG IVPB SCH ×2 (10:02→21:56)
[2021-10-12] MEDS: CLOPIDOGREL BISULFATE 75 MG TABLET (FP) PO SCH (10:02)
[2021-10-12] MEDS: SODIUM CHLORIDE 1,000 ML IV SCH ×3 (21:56→23:00)
[2021-10-12] MEDS: morphine SULFATE 4 MG/ML VIAL IVPUSH PRN (21:56)
[2021-10-13] MEDS: PIPERACILLIN/TAZOB 3.375 GM 3.375 GM in DEXTROSE 5%-WATER - 50 ML IVPB SCH ×2 (01:27→09:44)
[2021-10-13] MEDS: METOCLOPRAMIDE HCL INJECTION 10 MG/2 ML VIAL IVPUSH SCH ×3 (07:00→16:36)
[2021-10-13 07:33] LABS: HEMATOCRIT 38.3 % (35.4-49); HEMOGLOBIN 13.6 G/dL (11.7-16.9); MCHC 35.5 g/dl (32.0-35.9); MEAN CELL VOLUME 95.7 fl (80-96); MEAN PLT VOLUME 8.2 fl (7.5-11.1); PLATELET COUNT 185.8 10^3/uL (134-434); WHITE BLOOD COUNT 8.1 10^3/uL (4.0-10.8)
[2021-10-13 07:40] LABS: CALCIUM 8.9 mg/dl (8.5-10); CREATININE 0.7 mg/dl (0.55-1.3)
[2021-10-13] MEDS ORDERED: POTASSIUM CHLORIDE TABS 20 MEQ TABLET.ER (FP) PO ONE ×2 (09:00→13:00)
[2021-10-13] MEDS ORDERED: KCL 10 MEQ IVPB 10 MEQ/100 ML INFUS.BAG IVPB SCH (09:00)
[2021-10-13] MEDS ORDERED: PIPERACILLIN/TAZOBACTAM 3.375 GM VIAL IVPB ONE (09:38)
[2021-10-13] MEDS ORDERED: DEXTROSE 5%-WATER - 50 ML IVPB ONE (09:39)
[2021-10-13] MEDS: HEPARIN NA (PORCINE) 5,000 UNITS/ML 1ML VIAL SQ SCH (09:43)
[2021-10-13] MEDS: CLOPIDOGREL BISULFATE 75 MG TABLET (FP) PO SCH (09:44)
[2021-10-13] MEDS: FAMOTIDINE 20 MG/50 ML IVPB 20 MG/50 ML MG IVPB SCH (09:44)
[2021-10-13] MEDS ORDERED: MAGNESIUM SULF 50% (8.12 MEQ/2 ML-1 GM VIAL) IVPB ONE (12:26)
[2021-10-13] MEDS ORDERED: MAGNESIUM SULFATE IN WATER 2 GM/50 ML IVPB IVPB ONE (12:45)
[2021-10-13 15:07] VITALS: BP 135/92; PULSE 79; TEMP 98.1
[2021-10-13] MEDS ORDERED: AMOX TR/POT CLAV 875MG/125MG TABLETS (FP) PO SCH (17:30)
== END 2021-10-13 17:00 | disposition home or self-care (01) | DRG 388 ==
LOC: FER 19:30 → FM/S 23:31
PROVIDERS: ADMIT Internal Medicine; ATTEND Nurse Practitioner Family
DX: K56.7 Ileus, unspecified (principal); E43 Unspecified severe protein-calorie malnutrition; I69.351 Hemiplegia and hemiparesis following cerebral infarction affecting right dominant side; E87.2 Acidosis; R64 Cachexia; Z68.1 Body mass index [BMI] 19.9 or less, adult; R10.31 Right lower quadrant pain; R11.2 Nausea with vomiting, unspecified; J44.9 Chronic obstructive pulmonary disease, unspecified; E78.5 Hyperlipidemia, unspecified; K31.89 Other diseases of stomach and duodenum; E83.52 Hypercalcemia; E86.0 Dehydration; F12.90 Cannabis use, unspecified, uncomplicated; D72.829 Elevated white blood cell count, unspecified; F17.210 Nicotine dependence, cigarettes, uncomplicated; J34.2 Deviated nasal septum; D35.02 Benign neoplasm of left adrenal gland; D35.01 Benign neoplasm of right adrenal gland; F19.10 Other psychoactive substance abuse, uncomplicated; E87.6 Hypokalemia; E83.42 Hypomagnesemia
CPT/HCPCS: 0241U-QW; 36415; 71045-TC-FY; 74019-TC-FY; 74177-TC; 80048; 80053; 80076; 80307; 81003; 81015; 82150; 82550; 82553; 83605; 83690; 83735; 84132; 84484; 84550; 85025; 85027; 85610; 85651; 86140; 87040; 87086; 93005; 97116-GP; 97162-GP; 99285-25; J1644; Q9967

== ENCOUNTER 2023-05-18 21:18 | Emergency (ER) | payer OTHER ==
[2023-05-18] MEDS: SODIUM CHLORIDE 0.9% 500 ML INFUS.BAG IV ONE (22:14)
[2023-05-18 22:18] LABS: HEMATOCRIT 45.4 % (35.4-49); HEMOGLOBIN 15.5 G/dL (11.7-16.9); MEAN CELL VOLUME 99.7 fl (80-96); PLATELET COUNT 195.3 10^3/uL (134-434); RBC 4.55 10^6/uL (4.00-5.60); RDW 13.3 % (11.9-15.9); WHITE BLOOD COUNT 10.8 10^3/uL (4.0-10.8)
[2023-05-18 22:36] LABS: ALBUMIN 4.5 g/dl (3.4-5.0); ALK PHOS 76 U/L (45-117); ANION GAP 8 mmol/L (4-13); BILIRUBIN,TOTAL 0.6 mg/dl (0.2-1); CALCIUM 9.4 mg/dl (8.5-10.1); CHLORIDE 107 mmol/L (98-107); CO2 24 mmol/L (21-32); CREATININE 0.7 mg/dl (0.6-1.3); GLUCOSE,RANDOM 108 mg/dl (74-106); POTASSIUM 3.9 mmol/L (3.5-5.1); SGOT/AST 19 U/L (15-37); SGPT/ALT 11 U/L (7-52); SODIUM 139 mmol/L (136-145); TOT PROT 6.6 g/dl (6.4-8.2)
[2023-05-18 22:39] LABS: PLATELET ESTIMATE ADEQUATE
[2023-05-18 23:58] LABS: N-TERMINAL BNP 87.4 pg/ml (5-125)
[2023-05-19] MEDS ORDERED: ACETAMINOPHEN 1000 MG/100 ML BAG IVPB ONE (01:56)
[2023-05-19 02:00] VITALS: BP 124/78; PULSE 77; RESP 18; TEMP 97.9; BMI 19.3
== END 2023-05-19 03:15 | disposition home or self-care (01) ==
LOC: FER 21:18
DX: R00.2 Palpitations (principal); M62.49 Contracture of muscle, multiple sites; R29.810 Facial weakness; Z20.822 Contact with and (suspected) exposure to COVID-19
CPT/HCPCS: 0241U-QW; 36415; 71045-TC-FY; 80053; 80307; 82550; 83605; 83880; 84484; 85027; 93005; 99285-25